=== PATIENT | female | born 1955 | race Caucasian/White ===

== ENCOUNTER 2019-03-03 08:35 | Outpatient (RCR) | payer MEDICARE, MEDICAID, SELFPAY ==
[2019-03-03 09:14] LABS: Basophils % 0.2 %; Hematocrit 36.8 % (37.0-47.0); Lymphocytes # 1.5 10^3/uL (0.8-4.8); Lymphocytes % 29.9 %; Mean Corpuscular HGB Conc 29.9 g/dL (30.0-36.0); Mean Corpuscular Hemoglobin 28.2 pg (28.0-34.0); Mean Corpuscular Volume 94.4 fL (81-99); Mean Platelet Volume 10.2 fL (7.4-10.4); Monocytes # 0.5 10^3/uL (0.2-0.9); Monocytes % 9.7 %; Nucleated Red Blood Cells % 0 %; Platelet Count 227 10^3/cmm (130-400); Red Cell Distribution Width 14.2 % (12.1-15.1)
[2019-03-03 09:36] LABS: Alanine Aminotransferase 6 U/L (0-33); Albumin Level 3.5 g/dL (3.5-5.2); Alkaline Phosphatase 168 IU/L (35-105); Anion Gap 15.1 (5-19); Aspartate Amino Transferase 11 U/L (0-32); Blood Urea Nitrogen 26 mg/dL (8-23); Calcium 9.1 mg/Dl (8.8-10.2); Carbon Dioxide 26 mmol/L (22-29); Chloride 104 mmol/L (98-107); Globulin 3.2 g/dL (1.3-4.6); Glomerular Filtration Rate 41.1 mL/min (90-130); Glucose 82 mg/dL (74-106); Potassium 3.1 mmol/L (3.5-5.1); Sodium 142 mmol/L (136-145); Total Bilirubin 0.2 mg/dL (0.15-1.2); Total Protein 6.7 g/dL (6.6-8.7)
== END 2019-03-14 23:59 | disposition home or self-care (01) ==
LOC: LAB 08:35
PROVIDERS: Visit Provider Nurse Practitioner Family
DX: I50.33 Acute on chronic diastolic (congestive) heart failure (principal); D64.9 Anemia, unspecified
CPT/HCPCS: 80053; 85025

== ENCOUNTER 2019-04-23 11:14 | Inpatient (IN) | payer MEDICARE, MEDICAID, SELFPAY ==
[2019-04-23] VITALS (9 sets, daily range): BP systolic 89–103; BP diastolic 61–70; PULSE 86–117; RESP 16–32; TEMP 36.6–38.3; O2SAT 92–98; BMI 32.4
--- NOTE | 2019-04-23 11:21 | ED_ITS ---
Entered by Tamela Pérez, acting as scribe for Stas Yanez DO HPI - SOB/Dyspnea General: Chief Complaint: Shortness of Breath/Dyspnea Stated Complaint: RESPIRATORY DISTRESS / ASPIRATED H20 YESTERDAY Time Seen by Provider: 04/23/19 11:21 Source: EMS Mode of arrival: EMS Limitations: altered mental status History of Present Illness: HPI Narrative: 63 yo female presents with shortness of breath and altered mental status. per usp staff at [facility] the pt was having a hard time breathing last night, but they put her on oxygen and she improved then this morning. per nursing staff the pt was drinking water and then she was unresponsive they believe she aspirated. nursing staff denies any other symptoms at this time. MD elicited complaint: shortness of breath Onset (ago): day(s) (last night) Context: choking/aspiration (possible this morning on water) Timing: progressively worsening Severity: moderate Relieving factors: oxygen Treatment prior to arrival: oxygen Related Data: Home oxygen amount: none Review of Systems General: Reports: ROS unobtainable due to medical condition and ROS unobtainable due to mental status PFSH ED PFSH: Medical History (Updated 04/24/19 @ 15:39 by Stas Yanez DO) Anxiety B12 deficiency anemia Bipolar 1 disorder Colon cancer Dermatitis, seborrheic Dysphagia, oropharyngeal Extrapyramidal and movement disorder GERD (gastroesophageal reflux disease) Hypertension Intellectual disability Major depression Surgical History (Updated 04/23/19 @ 17:28 by Guillermo Reza MD) History of partial colectomy Hx of cataract surgery Social History Smoking and tobacco status: never smoked Physical Exam HENMT: COMMON NORMALS: normocephalic, head/scalp atraumatic, hearing grossly normal bilaterally, TM's normal bilaterally, nasal mucous membranes and turbinates normal, moist oral mucous membranes and oropharynx normal HEAD & SCALP: normocephalic and atraumatic NOSE: nasal mucous membranes and turbinates normal TYMPANIC MEMBRANE: TM's normal bilaterally Eye: COMMON NORMALS: PERRL, EOMs intact bilaterally, conjunctivae normal and no scleral icterus CONJUNCTIVA: Yes conjunctivae normal PUPIL: Yes PERRL Neck/C-Spine: COMMON NORMALS: full ROM, no lymphadenopathy, supple and no JVD Lymph: LYMPHATIC: no lymphadenopathy noted and no lymphedema noted Cardio: COMMON NORMALS: no JVD, regular rate, regular rhythm and no murmurs RATE: regular rate RHYTHM: regular rhythm GI: COMMON NORMALS: soft to palpation and no hepatosplenomegaly AUSCULTATION: Yes normoactive bowel sounds PALPATION: Yes soft, No tender, No guarding and Yes no hepatosplenomegaly Skin: COMMON NORMALS: no rashes or lesions noted GENERAL SKIN EXAM: no rashes or lesions noted Course ED course: Discussed Dr. Reza. Patient is essentially obtunded and unresponsive usually when I had seen her in the past in the usp she was much more awake awake and interactive. Suspect a lot of this is due to her influenza there may be some other underlying medical issues. We will go ahead and admit her for supportive care for influenza acute respiratory failure with hypoxemia acute kidney injury possible sepsis. Cover for secondary pneumonias and sepsis. Vital Signs: Vital signs: Vital Signs Temperature 97.8 F 04/24/19 11:51 Pulse Rate 103 H 04/24/19 14:37 Respiratory Rate 20 H 04/24/19 14:33 Blood Pressure 95/67 04/24/19 11:51 Pulse Oximetry 93 04/24/19 14:33 MDM - SOB/Dyspnea Lab Data: Labs: Lab Results 04/23/19 04/23/19 04/23/19 Range/Units 10:52 11:25 11:40 WBC 6.7 (4.0-10.0) 10^3/ uL RBC 4.56 (4.1-5.3) 10^6/u L Hgb 12.7 (11.5-15.3) g/dL Hct 44.8 (37.0-47.0) % MCV 98.2 (81-99) fL MCH 27.9 L (28.0-34.0) pg MCHC 28.3 L (30.0-36.0) g/dL RDW 15.1 (12.1-15.1) % Plt Count 143 (130-400) 10^3/c mm MPV 11.5 H (7.4-10.4) fL Neut % (Auto) 81.0 % Lymph % (Auto) 12.7 % [place] % (Auto) 5.8 % Eos % (Auto) 0.0 % Baso % (Auto) 0.1 % Neut # (Auto) 5.4 (1.8-7.7) 10^3/u L Lymph # (Auto) 0.9 (0.8-4.8) 10^3/u L [place] # (Auto) 0.4 (0.2-0.9) 10^3/u L Eos # (Auto) 0.0 (0.0-0.8) 10^3/u L Baso # (Auto) 0.0 (0.0-0.1) 10^3/u L Nucleated RBC % (a uto) 0 % Nucleated RBCs # 0.0 /100WBC Specimen Type Arterial Sample Site Radial, left ABG pH 7.32 L (7.35-7.45) ABG pCO2 31.4 L (35-45) mmHg ABG pO2 68.4 L (80.0-100.0) mmH g ABG HCO3 16.1 L (22-26) mmol/L ABG Base Excess -8.8 L (-2.0-2.0) mmol/ L Hayden Test Pos Hematocrit 43.5 (37-47) % Hgb O2 Saturation 92.0 L (95-100) % Carboxyhemoglobin 0.4 (0.4-20.1) %THgb Methemoglobin 0.4 (0.4-1.5) % Total Hemoglobin 14.2 (12-16) g/dL O2 Delivery Device Nc O2 Liters/Min 4.0 % FiO2 36.0 % Permastone Installer ID [id number] Sodium 143 (136-145) mmol/L Potassium 4.7 (3.5-5.1) mmol/L Chloride 100 (98-107) mmol/L Carbon Dioxide 19 L (22-29) mmol/L Anion Gap 28.7 H (5-19) BUN 42 H (8-23) mg/dL Creatinine 2.3 H (0.5-0.9) mg/dL GFR Calculation 21.3 L (90-130) mL/min Glucose 207 H (65-115) mg/dL Calculated Osmolal ity 300 H (285-295) mOsm/k g Lactic Acid (0.5-2.2) mmol/L Calcium 9.4 (8.5-10.5) mg/dL Total Bilirubin 0.3 (0.15-1.2) mg/dL AST 43 H (0-32) U/L ALT 18 (0-33) U/L Alkaline Phosphata se 114 H (35-105) IU/L Troponin T Baselin e (0-10) ng/mL Troponin T 120 Min eulogio (0-10) ng/mL Delta Troponin T (0-10) ABS# Total Protein 8.6 (6.6-8.7) g/dL Albumin 3.9 (3.5-5.2) g/dL Globulin 4.7 H (1.3-4.6) g/dL Influenza Type A A g (Negative) POC Influenza B Ag (Negative) 04/23/19 04/23/19 04/23/19 Range/Units 11:40 11:45 11:45 WBC (4.0-10.0) 10^3/ uL RBC (4.1-5.3) 10^6/u L Hgb (11.5-15.3) g/dL Hct (37.0-47.0) % MCV (81-99) fL MCH (28.0-34.0) pg MCHC (30.0-36.0) g/dL RDW (12.1-15.1) % Plt Count (130-400) 10^3/c mm MPV (7.4-10.4) fL Neut % (Auto) % Lymph % (Auto) % [place] % (Auto) % Eos % (Auto) % Baso % (Auto) % Neut # (Auto) (1.8-7.7) 10^3/u L Lymph # (Auto) (0.8-4.8) 10^3/u L [place] # (Auto) (0.2-0.9) 10^3/u L Eos # (Auto) (0.0-0.8) 10^3/u L Baso # (Auto) (0.0-0.1) 10^3/u L Nucleated RBC % (a uto) % Nucleated RBCs # /100WBC Specimen Type Sample Site ABG pH (7.35-7.45) ABG pCO2 (35-45) mmHg ABG pO2 (80.0-100.0) mmH g ABG HCO3 (22-26) mmol/L ABG Base Excess (-2.0-2.0) mmol/ L Hayden Test Hematocrit (37-47) % Hgb O2 Saturation (95-100) % Carboxyhemoglobin (0.4-20.1) %THgb Methemoglobin (0.4-1.5) % Total Hemoglobin (12-16) g/dL O2 Delivery Device O2 Liters/Min % FiO2 % Permastone Installer ID Sodium (136-145) mmol/L Potassium (3.5-5.1) mmol/L Chloride (98-107) mmol/L Carbon Dioxide (22-29) mmol/L Anion Gap (5-19) BUN (8-23) mg/dL Creatinine (0.5-0.9) mg/dL GFR Calculation (90-130) mL/min Glucose (65-115) mg/dL Calculated Osmolal ity (285-295) mOsm/k g Lactic Acid 6.0 H* (0.5-2.2) mmol/L Calcium (8.5-10.5) mg/dL Total Bilirubin (0.15-1.2) mg/dL AST (0-32) U/L ALT (0-33) U/L Alkaline Phosphata se (35-105) IU/L Troponin T Baselin e 71 H (0-10) ng/mL Troponin T 120 Min eulogio (0-10) ng/mL Delta Troponin T (0-10) ABS# Total Protein (6.6-8.7) g/dL Albumin (3.5-5.2) g/dL Globulin (1.3-4.6) g/dL Influenza Type A A g Negative (Negative) POC Influenza B Ag Positive H (Negative) 04/23/19 Range/Units 13:00 WBC (4.0-10.0) 10^3/ uL RBC (4.1-5.3) 10^6/u L Hgb (11.5-15.3) g/dL Hct (37.0-47.0) % MCV (81-99) fL MCH (28.0-34.0) pg MCHC (30.0-36.0) g/dL RDW (12.1-15.1) % Plt Count (130-400) 10^3/c mm MPV (7.4-10.4) fL Neut % (Auto) % Lymph % (Auto) % [place] % (Auto) % Eos % (Auto) % Baso % (Auto) % Neut # (Auto) (1.8-7.7) 10^3/u L Lymph # (Auto) (0.8-4.8) 10^3/u L [place] # (Auto) (0.2-0.9) 10^3/u L Eos # (Auto) (0.0-0.8) 10^3/u L Baso # (Auto) (0.0-0.1) 10^3/u L Nucleated RBC % (a uto) % Nucleated RBCs # /100WBC Specimen Type Sample Site ABG pH (7.35-7.45) ABG pCO2 (35-45) mmHg ABG pO2 (80.0-100.0) mmH g ABG HCO3 (22-26) mmol/L ABG Base Excess (-2.0-2.0) mmol/ L Hayden Test Hematocrit (37-47) % Hgb O2 Saturation (95-100) % Carboxyhemoglobin (0.4-20.1) %THgb Methemoglobin (0.4-1.5) % Total Hemoglobin (12-16) g/dL O2 Delivery Device O2 Liters/Min % FiO2 % Permastone Installer ID Sodium (136-145) mmol/L Potassium (3.5-5.1) mmol/L Chloride (98-107) mmol/L Carbon Dioxide (22-29) mmol/L Anion Gap (5-19) BUN (8-23) mg/dL Creatinine (0.5-0.9) mg/dL GFR Calculation (90-130) mL/min Glucose (65-115) mg/dL Calculated Osmolal ity (285-295) mOsm/k g Lactic Acid (0.5-2.2) mmol/L Calcium (8.5-10.5) mg/dL Total Bilirubin (0.15-1.2) mg/dL AST (0-32) U/L ALT (0-33) U/L Alkaline Phosphata se (35-105) IU/L Troponin T Baselin e (0-10) ng/mL Troponin T 120 Min eulogio 56.23 H (0-10) ng/mL Delta Troponin T -14.77 L (0-10) ABS# Total Protein (6.6-8.7) g/dL Albumin (3.5-5.2) g/dL Globulin (1.3-4.6) g/dL Influenza Type A A g (Negative) POC Influenza B Ag (Negative) Discharge Plan Discharge Patient Disposition: Admitted As Inpatient Admit Provider: Guillermo Reza Clinical Impression: Influenza with respiratory manifestation, Acute respiratory failure with hypoxia, Acute kidney injury, Diarrhea, Sepsis with acute organ dysfunction and septic shock Condition: Stable Interventions: ED Discharge Assessment Last Done: 04/23/19 16:27 Discharge Date/Time: 04/23/19 16:28 Coding Level of Care Code ED Shaper Setter for Chg Fwd Exam Detailed The documentation recorded by the Beto miranda Bridget Annette, accurately reflects the service I personally performed and the decisions made by Beau truong Curtis L, Apr 23, 2019 11:14
--- NOTE | 2019-04-23 11:25 | XRR_ITS ---
PROCEDURE INFORMATION: Exam: XR Chest, 1 View Exam date and time: 04/23/2019 11:59 AM Age: 63 years old Clinical indication: Respiratory distress; aspirated water yesterday TECHNIQUE: Imaging protocol: XR of the chest Views: 1 view. COMPARISON: No relevant prior studies available. FINDINGS: Lungs: Poor inspiration. Decreased lung volumes. Linear left basilar airspace disease compatible with atelectasis. Slight crowding of the right infrahilar bronchovascular structures likely due to atelectasis as well. Pleural space: No pleural effusion or pneumothorax. Heart/Mediastinum: The cardiac silhouette is not enlarged. Diaphragm: The left hemidiaphragm is slightly elevated. Bones/joints: No acute osseous abnormality. Soft tissues: There is right rotator cuff calcific tendinitis. Other findings: There is some gaseous distention of the stomach. XR/XR chest 1V portable [id number] IMPRESSION: Bibasilar atelectasis.
--- NOTE | 2019-04-23 11:25 | ECG_ITS ---
Measurements Intervals [place] Rate: 86 P: 59 AL: 178 QRS: 10 QRSD: 87 T: 55 QT: 388 QTc: 465 SINUS RHYTHM No previous ECG available for comparison Electronically Signed On 04-23-2019 19:34:14 CDT by Lee Gutierrez M.D. [email or web address]
--- NOTE | 2019-04-23 11:36 | CT_ITS ---
WS: [id number] CT ABDOMEN PELVIS TECHNIQUE: Noncontrast CT of the abdomen and pelvis with coronal and sagittal reformatted images. CLINICAL INFORMATION: abd pain COMPARISON: None. DLP: 1357.[address] scans at [facility] use at least one of these dose optimization techniques: automat ed exposure control; mA and/or kV adjustment per patient size (includes targeted exams where dose is matched to clinical indication); or iterative reconstruction. FINDINGS: Images degraded by patient motion Prior postoperative changes partial right colectomy with ileocolic anastomosis. Normal noncontrast li luis fernando. Cholecystectomy clips. Right adrenal gland is normal.Small bilateral renal cysts largest in the left measuring 1.9 cm unchanged. Trace left pleural fluid. No hydronephrosis. Stable left adrenal mass measuring 3.2 x 3.2 CM. Subsegmental atelectasis in the l estephanie bases. Small esophageal hiatal hernia. Air-fluid level in the stomach with stomach distention. Air-fluid levels in the proximal small bowel. Scattered air and fluid in normal caliber small bowel. No evidence of high-grade obstruction. Modera te fecal retention in the rectum. Mild diffuse thickening of the distal sigmoid colon and rectum can be seen with distal colitis/proctitis. Tiny amount of inflammatory stranding in the perirectal soft t issues. Infraumbilical midline hernia containing multiple loops of small bowel similar in appearance to 2019. Wide mouth opening measuring 4.5 cm. No evidence of strangulation or high-grade obstruction. No periaortic or retroperitoneal ymphadenopathy. No inguinal lymphadenopathy. Stable grade 1-2 vandana listhesis L5 on S1 with spondylolysis. Chronic compression deformities at T11, T12, and L3 are stable .Compression superior endplate L1 is new from previous. Uterine fibroid. Attempted notification Stas Yanez DO at 04/23/2019 1:[address]/CT abdomen pelvis wo con [id number] IMPRESSION: 1. Stable left adrenal adenoma measuring 3.1 x 3.1 CM. 2. Prior cholecystectomy. 3. Infraumbilical midline hernia containing multiple loops of small bowel is s table in appearance with a wide mouth opening. No evidence of high-grade obstru ction or strangulation 4. Distal sigmoid and rectal constipation with rectal distention. Mild diffuse wall thickening of the distal sigmoid colon and rectum suspicious for mild dis kolby colitis or proctitis. 5. Compression of the L1 superior endplate measuring approximately 20% is new from May 08, 2018 but appears chronic
[2019-04-23 11:39] LABS: ABG PCO2 31.4 mmHg (35-45); ABG PH Result 7.32 (7.35-7.45); Arterial Blood Gas Hematocrit 43.5 % (37-47); Base Excess ABG -8.8 mmol/L (-2.0-2.0); Blood Gas Allen Test Pos; Blood Gas Sample Site Radial, left; Blood Gas Sample Type Arterial; Carboxyhemoglobin 0.4 %THgb (0.4-20.1); HCO3 ABG 16.1 mmol/L (22-26); Methemoglobin 0.4 % (0.4-1.5); Oxygen Device NC; PO2 ABG 68.4 mmHg (80.0-100.0); Total Hemoglobin 14.2 g/dL (12-16)
[2019-04-23] MEDS: levofloxacin-dextrose 5 % 750 MG/150 ML PREMIX 150 MG IV (11:39)
[2019-04-23 11:57] LABS: Basophils % 0.1 %; Hematocrit 44.8 % (37.0-47.0); Hemoglobin 12.7 g/dL (11.5-15.3); Lymphocytes # 0.9 10^3/uL (0.8-4.8); Lymphocytes % 12.7 %; Mean Corpuscular HGB Conc 28.3 g/dL (30.0-36.0); Mean Corpuscular Hemoglobin 27.9 pg (28.0-34.0); Mean Corpuscular Volume 98.2 fL (81-99); Mean Platelet Volume 11.5 fL (7.4-10.4); Monocytes # 0.4 10^3/uL (0.2-0.9); Monocytes % 5.8 %; Neutrophils # 5.4 10^3/uL (1.8-7.7); Nucleated Red Blood Cells % 0 %; Platelet Count 143 10^3/cmm (130-400); Red Blood Count 4.56 10^6/uL (4.1-5.3); Red Cell Distribution Width 15.1 % (12.1-15.1); White Blood Count 6.7 10^3/uL (4.0-10.0)
[2019-04-23 12:11] LABS: Alanine Aminotransferase 18 U/L (0-33); Albumin Level 3.9 g/dL (3.5-5.2); Alkaline Phosphatase 114 IU/L (35-105); Anion Gap 28.7 (5-19); Aspartate Amino Transferase 43 U/L (0-32); Blood Urea Nitrogen 42 mg/dL (8-23); Calcium 9.4 mg/dL (8.5-10.5); Carbon Dioxide 19 mmol/L (22-29); Chloride 100 mmol/L (98-107); Globulin 4.7 g/dL (1.3-4.6); Glomerular Filtration Rate 21.3 mL/min (90-130); Glucose 207 mg/dL (65-115); Osmolality Calculated 300 mOsm/kg (285-295); Potassium 4.7 mmol/L (3.5-5.1); Sodium 143 mmol/L (136-145); Total Bilirubin 0.3 mg/dL (0.15-1.2); Total Protein 8.6 g/dL (6.6-8.7)
[2019-04-23 12:26] LABS: Influenza A by IFA Negative (Negative); Influenza B by IFA Positive (Negative)
[2019-04-23 13:07] LABS: Troponin(5th) Baseline 71 ng/mL (0-10)
[2019-04-23] MEDS: piperacillin-tazobactam 3.375 GM in sodium chloride 0.9% (plus) 50 ML IV ×2 (13:13→22:00)
--- NOTE | 2019-04-23 13:25 | ECG_ITS ---
Measurements Intervals [place] Rate: 115 P: 37 VT: 181 QRS: -10 QRSD: 97 T: 69 QT: 333 QTc: 462 SINUS TACHYCARDIA NONSPECIFIC T-WAVE ABNORMALITY ABNORMAL RHYTHM ECG INTERPRETATION BASED ON A DEFAULT AGE OF 40 YEARS No previous ECG available for comparison Electronically Signed On 04-23-2019 19:36:03 CDT by Lee Gutierrez M.D. [id number]
[2019-04-23 13:27] LABS: Troponin 5 2HR 56.23 ng/mL (0-10)
[2019-04-23 14:33] LABS: Reflex Lactate Order REFLEX LACTIC ORDERD
[2019-04-23 15:28] LABS: Lactic Acid level (Lactate) 2.7 mmol/L (0.5-2.2)
--- NOTE | 2019-04-23 16:38 | PM.HP ---
Providers/Chief Complaint Admitting Physician: Guillermo Reza MD Primary Care Provider: Sai Hayden DO Chief Complaint: RESPIRATORY DISTRESS / ASPIRATED H20 YESTERDAY History of Present Illness Cecelia Gonzales is a 63 year old female, resident of nursing facility was brought to emerge department with worsening respiratory status and hypoxia. I have discussed case with [facility], patient's RN at [facility] [place]. Apparently patient started having some difficulty swallowing and lately she has been having her medications crushed. Yesterday morning after breakfast there was a concern that she could possibly aspirate. Later that day patient had episode of oxygen desaturation in the 80s and oxygen supplementation for short period of time was used. She was able to sleep throughout the night without oxygen. She was getting somewhat lethargic and this morning she again noted to have trouble breathing with oxygen desaturation and having pulmonary Rales on exam. There was no report of diarrhea although in ER patient had extensive amount of diarrhea requiring rectal tube placement. In emergency department patient was placed on BiPAP with FiO2 40% she was saturating in the high 90s during my evaluation. She tested positive for influenza. She was very lethargic and unable to communicate. She is clinically very dry and has evidence of acute kidney injury. She had fever 101 in ER and she met septic shock criteria. Her lactic acid was 6.0. She was treated with aggressive IV hydration and her heart rate gradually improved from 117 to 90s during my evaluation in ER. We have no ICU or CSU beds and patient is being admitted to [facility] floor given her CODE STATUS. Family history is unavailable. Review of Systems Narrative: Unable to obtain due to patient's mental status. Medications/Allergies Home Medications Medication Instructions Recorded Confirmed Last Taken Type acetaminophen [Tylenol] 650 mg PO Q8H PRN 04/23/19 04/23/19 Unknown History amantadine HCl 100 mg PO DAILY 04/23/19 04/23/19 04/23/19 History bisacodyl 10 mg CA DAILY PRN 04/23/19 04/23/19 Unknown History chlorpromazine 100 mg PO TID 04/23/19 04/23/19 04/23/19 History clonazepam [Klonopin] 0.5 mg PO TID 04/23/19 04/23/19 04/23/19 History dextromethorphan-quinidine 1 cap PO Q12H 04/23/19 04/23/19 04/23/19 History [Nuedexta] furosemide 40 mg PO DAILY 04/23/19 04/23/19 04/23/19 History levetiracetam 500 mg PO BID 04/23/19 04/23/19 04/23/19 History magnesium hydroxide [Milk of 400 mg PO DAILY PRN 04/23/19 04/23/19 Unknown History Magnesia] metoprolol succinate 25 mg PO BID 04/23/19 04/23/19 04/23/19 History oxcarbazepine 300 mg PO TID 04/23/19 04/23/19 04/23/19 History potassium chloride 20 meq PO BID 04/23/19 04/23/19 04/23/19 History selenium sulfide [Anti-Dandruff] See Rx Instructions .ROUTE .COMPLEX 04/23/19 04/23/19 Unknown History sodium phosphates [Enema] 118 ml CA DAILY PRN 04/23/19 04/23/19 Unknown History topiramate [Topamax] 50 mg PO TID 04/23/19 04/23/19 04/23/19 History Allergies Allergy/AdvReac Type Severity Reaction Status Date / Time nitrofurantoin Allergy ALGY-Rash Verified 04/23/19 11:32 [From Macrobid] oseltamivir [From Tamiflu] Allergy ALGY-Hives Verified 04/23/19 11:32 PFSH Acute PFSH: Medical History (Updated 04/23/19 @ 17:37 by Guillermo Reza MD) Anxiety B12 deficiency anemia Bipolar 1 disorder Colon cancer Dermatitis, seborrheic Dysphagia, oropharyngeal Extrapyramidal and movement disorder GERD (gastroesophageal reflux disease) Hypertension Intellectual disability Major depression Surgical History (Updated 04/23/19 @ 17:28 by Guillermo Reza MD) History of partial colectomy Hx of cataract surgery Social History Smoking and tobacco status: never smoked Vitals/I&O/Wt Last Vital Signs Temp 101.0 F H 04/23/19 11:16 Pulse 101 H 04/23/19 16:27 Resp 18 04/23/19 16:27 BP 98/63 04/23/19 16:27 Pulse Ox 97 04/23/19 16:27 04/23/19 04/23/19 04/23/19 06:59 14:59 22:59 Intake Total 3415.86 / 3415.86 Balance 3415.86 / 3415.86 Weight last 48 hrs Weight 88.451 kg Physical Exam Const: COMMON NORMALS: no apparent distress and oriented x3 HENMT: COMMON NORMALS: normocephalic and head/scalp atraumatic Eye: COMMON NORMALS: EOMs intact bilaterally, conjunctivae normal and no scleral icterus Neck/C-Spine: COMMON NORMALS: no lymphadenopathy and no meningeal signs Lymph: LYMPHATIC: no lymphadenopathy noted Chest: COMMONS NORMALS: palpation of chest normal Resp: COMMON NORMALS: no use of accessory muscles and clear to auscultation bilaterally Cardio: COMMON NORMALS: regular rate, regular rhythm and no murmurs OTHER: No lower extremity edema GI: COMMON NORMALS: soft to palpation and non-tender RECTAL EXAM: deferred : COMMON NORMALS: Yes no CVA tenderness Back/Pelvis: COMMON NORMALS: thoracic and lumbar spine normal to inspection Extremity: COMMON NORMALS: normal to inspection and normal capillary refill Neuro: COMMON NORMALS: oriented x3 and no focal motor deficits SENSORIUM/ORIENTATION: Yes alert Psych: COMMON NORMALS: mental status grossly normal, thought process normal and cooperative Skin: COMMON NORMALS: no rashes or lesions noted Data : 04/23/19 11:40 04/23/19 10:52 Micro: Microbiology 04/23/19 11:45 Blood Culture - Preliminary Blood SPECIMEN COLLECTED 04/23/19 11:40 Blood Culture - Preliminary Blood SPECIMEN COLLECTED A&P Assessment and plan (1) Influenza with respiratory manifestation: Status: Acute Code(s): J11.1 - Influenza due to unidentified influenza virus with other respiratory manifestations (2) Acute respiratory failure with hypoxia: Status: Acute Code(s): J96.01 - Acute respiratory failure with hypoxia (3) Acute kidney injury: Prerenal Status: Acute Code(s): N17.9 - Acute kidney failure, unspecified (4) Diarrhea: Status: Acute Code(s): R19.7 - Diarrhea, unspecified (5) Sepsis with acute organ dysfunction and septic shock: As exhibited by fever, tachycardia, tachypnea and elevated lactic acid Status: Acute Code(s): A41.9 - Sepsis, unspecified organism; R65.21 - Severe sepsis with septic shock Additional A&P Information Elevated troponin. Suggestive of non-ST elevation [place] type II Hyperglycemia without previous history of diabetes mellitus. Oropharyngeal dysphagia. Intellectual disability Bipolar and major depressive disorder. PLAN: Continue BiPAP and oxygen support. Continue with aggressive IV hydration Obtain stool studies. Vancomycin and Zosyn for now. Patient received Levaquin in ER. Patient is allergic to Tamiflu. I was told that patient's CODE STATUS is DNR/DNI and this was verified by [facility] [place]. Attestations Medical Necessity Statement*: Patient with acute hypoxic respite failure requires close inpatient monitoring and treatment. I expect patient will require more than 2 midnights. 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
--- NOTE | 2019-04-23 17:44 | ECG_ITS ---
Measurements Intervals [place] Rate: 105 P: 39 WA: 170 QRS: -4 QRSD: 90 T: 74 QT: 357 QTc: 472 SINUS TACHYCARDIA NONSPECIFIC T-WAVE ABNORMALITY ABNORMAL RHYTHM ECG No previous ECG available for comparison Electronically Signed On 04-23-2019 19:35:31 CDT by Lee Gutierrez M.D. [email or web address]
[2019-04-23] MEDS: vancomycin 1,000 MG in sodium chloride 0.9% 250 ML 250 MG IV (19:03)
[2019-04-23] MEDS: levETIRAcetam 500 mg Tablet PO (19:03)
[2019-04-23] MEDS: sodium chloride 0.9% 1,000 ML 100 ML IV (19:04)
[2019-04-23] MEDS: metoprolol succinate ER (24 HR) 25 mg Tablet PO (19:04)
[2019-04-23 20:06] LABS: Lactic Sepsis W/Reflex 1.7 mmol/L (0.5-2.2)
[2019-04-23 20:54] LABS: Urine Appearance Cloudy (CLEAR); Urine Color Yellow (Yellow); pH Urine 5 (5-7)
[2019-04-23 20:55] LABS: Add Urine Microscopic? YES; Bilirubin Urine Neg (NEGATIVE); Blood Urine 3+ (Negative); Glucose Urine UA Norm (Normal); Ketones Urine Negative (Negative); Leukocyte Esterase Urine Negative (Negative); Nitrate Urine Negative (Negative); Protein Urine Trace (Negative); Urobilinogen Urine Norm (Negative)
--- NOTE | 2019-04-23 21:00 | PC.NURSE ---
Patient has a rectal tube and a simmons catheter was placed. Patient is on Droplet precautions for the flu. Patient was noted to a red bottom and redness in the folds of her thighs. Protective ointment cream applied to both.
--- NOTE | 2019-04-23 21:00 | PC.NURSE ---
Patient has a rectal tube
[2019-04-23 21:03] LABS: Amorphous Sediment Urine 2+; Coarse Granular Casts Urine 0-4 /lpf; Fine Granular Casts Urine 0-4 /lpf; Hyaline Casts Urine 0-4
[2019-04-23 21:04] LABS: Add Urine Culture? Yes; Bacteria Urine 2+; Squamous Epithelial Cell Urine 0-4 (0-5); WBC Urine 0-4 /hpf (0-5)
[2019-04-23] MEDS: OXcarbazepine 300 mg Tablet PO (22:03)
[2019-04-23] MEDS: CLONazepam 0.5 mg Tablet PO (22:03)
[2019-04-24] VITALS (11 sets, daily range): BP systolic 95–114; BP diastolic 55–79; PULSE 96–114; RESP 18–114; TEMP 36.5–36.8; O2SAT 92–98
--- NOTE | 2019-04-24 01:57 | PC.NURSE ---
vitals elevated because patient was yelling and upset while taking vitals. Patient was yelling for the nurse, I explained to her that she needed to use her call light instead of yelling, and that we could not hear her through the shut door and yelling would only make her tired. Patient told me Keep the damn door open then. I explained to patient that she was under isolation precautions and the door needed to remain shut to prevent spreading the illness. Patient then demanded water, and I reminded her that she was NPO and could not receive water. Patient remains yelling woohoo nurse through shut door.
[2019-04-24] MEDS: acetaminophen 325 mg Tablet 650 MG PO (03:03)
[2019-04-24] MEDS: piperacillin-tazobactam 3.375 GM in sodium chloride 0.9% (plus) 50 ML IV ×2 (04:38→16:30)
[2019-04-24 06:27] LABS: Hematocrit 41.8 % (37.0-47.0); Hemoglobin 12.4 g/dL (11.5-15.3); Lymphocytes # 0.7 10^3/uL (0.8-4.8); Lymphocytes % 16.7 %; Mean Corpuscular HGB Conc 29.7 g/dL (30.0-36.0); Mean Corpuscular Hemoglobin 29.4 pg (28.0-34.0); Mean Corpuscular Volume 99.1 fL (81-99); Mean Platelet Volume 11.6 fL (7.4-10.4); Monocytes # 0.3 10^3/uL (0.2-0.9); Neutrophils % 75.8 %; Nucleated Red Blood Cells % 0 %; Platelet Count 116 10^3/cmm (130-400); Red Blood Count 4.22 10^6/uL (4.1-5.3)
[2019-04-24 06:45] LABS: Alanine Aminotransferase 175 U/L (0-33); Albumin Level 2.8 g/dL (3.5-5.2); Alkaline Phosphatase 81 IU/L (35-105); Anion Gap 19.8 (5-19); Aspartate Amino Transferase 349 U/L (0-32); Blood Urea Nitrogen 48 mg/dL (8-23); Carbon Dioxide 19 mmol/L (22-29); Chloride 108 mmol/L (98-107); Globulin 3.9 g/dL (1.3-4.6); Glomerular Filtration Rate 23.6 mL/min (90-130); Glucose 99 mg/dL (65-115); Osmolality Calculated 296 mOsm/kg (285-295); Phosphorus 4.6 mg/dL (2.5-4.5); Sodium 144 mmol/L (136-145); Total Bilirubin 0.3 mg/dL (0.15-1.2); Total Protein 6.7 g/dL (6.6-8.7)
[2019-04-24 07:06] LABS: Slide Review Slide Review Perform
[2019-04-24 07:09] LABS: Absolute Segmented Neutrophil 1.5 10/cmm (1.6-7.1); Band Neutrophils Absolute 1.5 10^3/cmm (0.0-1.2); Lymphocytes 18 %; Lymphocytes Absolute 0.8 10^3/cmm (1.2-3.4); Monocytes Absolute 0.2 10^3/cmm (0.1-0.6); Platelet Estimate Decreased (Normal); Segmented Neutrophils 38 %; Total Cells Counted 100 (0-100)
[2019-04-24 07:38] LABS: Estmated Average Glucose 114; Hemoglobin A1C 5.6 % (4.0-6.0)
[2019-04-24 07:44] LABS: Potassium 2.8 mmol/L (3.5-5.1)
[2019-04-24] MEDS: CLONazepam 0.5 mg Tablet PO ×3 (08:23→20:43)
[2019-04-24] MEDS: levETIRAcetam 500 mg Tablet PO ×2 (08:23→18:46)
[2019-04-24] MEDS: OXcarbazepine 300 mg Tablet PO ×3 (08:24→20:43)
[2019-04-24] MEDS: metoprolol succinate ER (24 HR) 25 mg Tablet PO ×2 (08:24→18:46)
[2019-04-24] MEDS: ipratropium-albuterol 3 mL Neb INHALATION ×3 (08:48→23:31)
[2019-04-24] MEDS: sodium chloride 0.9% 1,000 ML 100 ML IV (09:42)
--- NOTE | 2019-04-24 10:00 | USCV_ITS ---
Cecelia Gonzales Age: 63 Gender: F : 1955 Exam Date: 04/24/2019 15:35 Ordering Phys: Guillermo Reza MD Technologist: Nicolasa Babb [place] [facility] [place]: [place] BP: 114 / 76 HR: 99 Rhythm: Sinus tachycardia Technical Quality: Very technically difficult study MEASUREMENTS (Male / Female) Normal Values 2D ECHO LV Chamber Size 3.4 cm RV Chamber Size 1.9 cm LV Ejection Fraction MOD 2C 56.0 % LV Ejection Fraction 2C AL 60.8 % LA Width 2.6 cm LA Height 4.4 cm RA Width 1.8 cm RA Height 3.9 cm DOPPLER AV Peak Velocity 96.0 cm/s LVOT Peak Velocity 97.0 cm/s MV Area PHT 5.0 cm squared MV E' Velocity 10.0 cm/s Mitral E to MV E' Ratio 10.8 Mitral E to LV E' Lateral Ratio 9.0 Mitral E to LV E' Septal Ratio 13.8 TV Peak E Velocity 52.0 cm/s FINDINGS Left Ventricle Normal left ventricular cavity size. Low normal left ventricular systolic function. Left ventricular ejection fraction is estimated at 50-55 %. There is possible basal to mid inferoseptal and anteroseptal hypokinesis. Right Ventricle Normal right ventricular size and systolic function. Right Atrium Normal right atrial size. Left Atrium Mildly increased left atrial size. Mitral Valve Structurally normal mitral valve. Aortic Valve Aortic valve not well visualized. No aortic valve stenosis. No aortic valve regurgitation. Tricuspid Valve Tricuspid valve not well visualized. Pulmonic Valve Pulmonic valve not well visualized. Pericardium No pericardial effusion. Aorta Aorta not well visualized. CONCLUSIONS 1. This is a technically very difficult study. 2. Normal left ventricular cavity size. Low normal left ventricular systolic function. Left ventricular ejection fraction is estimated at 50-55 %. There is possible basal to mid inferoseptal and anteroseptal hypokinesis. 3. No prior similar studies to compare. Jenn Esquivel MD (Electronically Signed) Final Date: 24 April 2019 19:08 S
--- NOTE | 2019-04-24 16:32 | PM.PN ---
Subjective Subjective: Interval history: Patient reports feeling better this morning. She denied chest pain or shortness of breath. She was off BiPAP since this morning and doing well. Her potassium was low this morning and replacement was given. Creatinine slightly improved to 2.1. Her AST and ALT increased in hepatic pattern potentially suggestive of passive congestion. Her troponin suggestive of recent CT shortly prior to admission. Echocardiogram is pending. Vitals/I&O/Wt Last Vital Signs Temp 98.2 F 04/24/19 15:48 Pulse 108 H 04/24/19 15:48 Resp 18 04/24/19 15:48 BP 99/55 04/24/19 15:48 Pulse Ox 94 04/24/19 15:48 04/24/19 04/24/19 04/24/19 06:59 14:59 22:59 Intake Total 50 / 3715.86 1050 / 1050 Output Total 800 / 1000 Balance -750 / 2715.86 1050 / 1050 Weight last 48 hrs Weight 88.451 kg Physical Exam Const: COMMON NORMALS: no apparent distress Resp: OTHER: Coarse breath sounds throughout suggestive of upper airway transmitted sounds. Minimal bibasilar Rales. Cardio: COMMON NORMALS: regular rate, regular rhythm and S2 normal heart sound RATE: regular rate RHYTHM: regular rhythm HEART SOUNDS: S2 normal OTHER: No lower extremity edema GI: COMMON NORMALS: normal to inspection, nondistended, normoactive bowel sounds, soft to palpation and non-tender PALPATION: Yes soft Neuro: COMMON NORMALS: no focal motor deficits Urinary Catheter Management^: Lou: Cath Placed During This Visit: yes Reason for Continuing Indwelling Catheter: Accurate Measurement of Urinary Output in Critically Ill Patients Urinary Catheter Date of Insertion: 04/23/19 Urinary Catheter Time of Insertion: 20:30 Data : 04/24/19 05:12 04/24/19 05:12 Micro: Microbiology 04/23/19 11:40 Blood Culture - Preliminary Blood NEGATIVE TO DATE 04/23/19 11:45 Blood Culture - Preliminary Blood NEGATIVE TO DATE 04/23/19 22:30 Enteric Pathogens (PCR) - Final Stool 04/23/19 22:30 C.difficile Toxin B Gene (PCR) - Final Stool 04/23/19 22:30 Occult Blood (FIT) - Final Stool A&P Assessment and plan (1) Influenza with respiratory manifestation: Status: Acute Code(s): J11.1 - Influenza due to unidentified influenza virus with other respiratory manifestations (2) Acute respiratory failure with hypoxia: Status: Acute Code(s): J96.01 - Acute respiratory failure with hypoxia (3) Acute kidney injury: Prerenal Status: Acute Code(s): N17.9 - Acute kidney failure, unspecified (4) Diarrhea: Status: Acute Code(s): R19.7 - Diarrhea, unspecified (5) Sepsis with acute organ dysfunction and septic shock: As exhibited by fever, tachycardia, tachypnea and elevated lactic acid Status: Acute Code(s): A41.9 - Sepsis, unspecified organism; R65.21 - Severe sepsis with septic shock Additional A&P Information Non-ST elevation CT type II Hyperglycemia without previous history of diabetes mellitus. Oropharyngeal dysphagia. Intellectual disability Bipolar and major depressive disorder. PLAN: Continue BiPAP and oxygen support as needed. Hold IV hydration and initiate diet. Obtain stool studies. Continue current antibiotics. Attestations Medical Necessity Statement*: Patient with respiratory failure requires close inpatient monitoring and treatment. Coding Level of Care Code Acute Director Corporate Sales for [facility] Diagnoses Influenza with respiratory manifestation J11.1 Acute respiratory failure with hypoxia J96.01 Acute kidney injury N17.9 Diarrhea R19.7 Sepsis with acute organ dysfunction and septic shock A41.9; R65.21
[2019-04-24] MEDS: enoxaparin 30 mg/0.3 mL Syringe SUBCUT (18:46)
[2019-04-24] MEDS: vancomycin 1,000 MG in sodium chloride 0.9% 250 ML 250 MG IV (23:16)
[2019-04-25] VITALS (12 sets, daily range): BP systolic 92–115; BP diastolic 60–78; PULSE 81–117; RESP 17–22; TEMP 35.9–37.7; O2SAT 91–96
[2019-04-25] MEDS: piperacillin-tazobactam 3.375 GM in sodium chloride 0.9% (plus) 100 ML IV ×2 (01:54→11:15)
[2019-04-25 06:38] LABS: Alanine Aminotransferase 309 U/L (0-33); Albumin Level 2.8 g/dL (3.5-5.2); Alkaline Phosphatase 65 IU/L (35-105); Anion Gap 17.3 (5-19); Aspartate Amino Transferase 426 U/L (0-32); Blood Urea Nitrogen 36 mg/dL (8-23); Calcium 7.9 mg/dL (8.5-10.5); Carbon Dioxide 17 mmol/L (22-29); Chloride 116 mmol/L (98-107); Globulin 3.3 g/dL (1.3-4.6); Glomerular Filtration Rate 26.5 mL/min (90-130); Glucose 80 mg/dL (65-115); Magnesium 1.9 mg/dL (1.7-2.3); Osmolality Calculated 300 mOsm/kg (285-295); Phosphorus 3.3 mg/dL (2.5-4.5); Potassium 3.3 mmol/L (3.5-5.1); Sodium 147 mmol/L (136-145); Total Bilirubin 0.4 mg/dL (0.15-1.2); Total Protein 6.1 g/dL (6.6-8.7)
[2019-04-25 06:43] LABS: Hematocrit 35.6 % (37.0-47.0); Hemoglobin 10.6 g/dL (11.5-15.3); Lymphocytes # 0.5 10^3/uL (0.8-4.8); Lymphocytes % 16.7 %; Mean Corpuscular HGB Conc 29.8 g/dL (30.0-36.0); Mean Corpuscular Hemoglobin 28.3 pg (28.0-34.0); Mean Corpuscular Volume 95.2 fL (81-99); Mean Platelet Volume 11.8 fL (7.4-10.4); Monocytes # 0.2 10^3/uL (0.2-0.9); Monocytes % 8.3 %; Neutrophils # 2.2 10^3/uL (1.8-7.7); Neutrophils % 74.7 %; Nucleated Red Blood Cells % 0 %; Platelet Count 101 10^3/cmm (130-400); Red Blood Count 3.74 10^6/uL (4.1-5.3); Red Cell Distribution Width 15.2 % (12.1-15.1); White Blood Count 2.9 10^3/uL (4.0-10.0)
[2019-04-25] MEDS: CLONazepam 0.5 mg Tablet PO ×3 (11:24→20:38)
[2019-04-25] MEDS: levETIRAcetam 500 mg Tablet PO ×2 (11:25→19:54)
[2019-04-25] MEDS: OXcarbazepine 300 mg Tablet PO ×2 (11:25→14:53)
[2019-04-25] MEDS: metoprolol succinate ER (24 HR) 25 mg Tablet PO (11:25)
--- NOTE | 2019-04-25 13:10 | PC.SLP ---
Speech therapy orders were received and chart was reviewed. Attempted to evaluate the patient and she refused and asked me to leave her room and not bother her. Attempts will be made tomorrow to see if the patient would participate in her ordered evaluation.
[2019-04-25] MEDS: ipratropium-albuterol 3 mL Neb INHALATION (14:00)
--- NOTE | 2019-04-25 15:16 | P.PN_ITS ---
Subjective Subjective: Interval history: Patient appears to be doing better. She denies shortness of breath or chest pain. She ate her breakfast this morning and drinking plenty of water. She developed pancytopenia and this is likely related to underlying infection. Echocardiogram shows 50 to 55% with possible basal and mid inferior septal and anteroseptal hypokinesis. Her diarrhea is significantly improved. Vitals/I&O/Wt Last Vital Signs Temp 98.6 F 04/25/19 11:46 Pulse 107 H 04/25/19 14:14 Resp 22 H 04/25/19 14:14 BP 92/61 04/25/19 11:46 Pulse Ox 92 04/25/19 14:14 04/25/19 04/25/19 04/25/19 06:59 14:59 22:59 Intake Total 580 / 1910 180 / 180 Output Total 750 / 1350 Balance -170 / 560 180 / 180 Physical Exam Const: COMMON NORMALS: no apparent distress Resp: COMMON NORMALS: normal respiratory effort and clear to auscultation bilaterally AUSCULTATION: clear to auscultation bilaterally Cardio: COMMON NORMALS: regular rate, regular rhythm and S2 normal heart sound RATE: regular rate RHYTHM: regular rhythm HEART SOUNDS: S2 normal OTHER: No lower extremity edema GI: COMMON NORMALS: normal to inspection, nondistended, normoactive bowel sounds, soft to palpation and non-tender PALPATION: Yes soft Urinary Catheter Management^: Lou: Cath Placed During This Visit: yes Reason for Continuing Indwelling Catheter: Assist healing open wound Urinary Catheter Date of Insertion: 04/23/19 Urinary Catheter Time of Insertion: 20:30 Data : 04/25/19 05:00 04/25/19 05:00 Micro: Microbiology 04/23/19 20:45 Urine Culture - Preliminary Urine,Clean Catch Gram Negative Rods 04/23/19 11:40 Blood Culture - Preliminary Blood NEGATIVE TO DATE 04/23/19 11:45 Blood Culture - Preliminary Blood NEGATIVE TO DATE 04/23/19 22:30 Enteric Pathogens (PCR) - Final Stool 04/23/19 22:30 C.difficile Toxin B Gene (PCR) - Final Stool A&P Assessment and plan (1) Influenza with respiratory manifestation: Status: Acute Code(s): J11.1 - Influenza due to unidentified influenza virus with other respiratory manifestations (2) Acute respiratory failure with hypoxia: Status: Acute Code(s): J96.01 - Acute respiratory failure with hypoxia (3) Acute kidney injury: Prerenal Status: Acute Code(s): N17.9 - Acute kidney failure, unspecified (4) Diarrhea: Status: Acute Code(s): R19.7 - Diarrhea, unspecified (5) Sepsis with acute organ dysfunction and septic shock: As exhibited by fever, tachycardia, tachypnea and elevated lactic acid Status: Acute Code(s): A41.9 - Sepsis, unspecified organism; R65.21 - Severe sepsis with septic shock Additional A&P Information Non-ST elevation [place] type II Hyperglycemia without previous history of diabetes mellitus. Oropharyngeal dysphagia. Intellectual disability Bipolar and major depressive disorder. Pancytopenia, likely related to underlying infection Elevated liver enzymes. This also appears to be related to infection. PLAN: Continue BiPAP and oxygen support as needed. We will remove rectal tube. Encouraged oral intake. Given patient's underlying medical condition will treat patient medically and avoid any aggressive intervention. Monitor pancytopenia. Hopefully it will gradually improve with infection getting under control. Unfortunately we cannot use Tamiflu because of allergy. Restart chlorpromazine. Will increase metoprolol to 50 mg twice daily for better heart rate control. Outpatient follow-up with cardiology could be considered. Attestations Medical Necessity Statement*: Patient with respiratory failure requires close inpatient monitoring and treatment. Coding Level of Care Code Acute Automatic Nailing Machine Operator for [facility] Diagnoses Influenza with respiratory manifestation J11.1 Acute respiratory failure with hypoxia J96.01 Acute kidney injury N17.9 Diarrhea R19.7 Sepsis with acute organ dysfunction and septic shock A41.9; R65.21
[2019-04-25 18:40] LABS: Vancomycin Trough 21.6 ug/mL (10-15)
[2019-04-25] MEDS: enoxaparin 30 mg/0.3 mL Syringe SUBCUT (19:54)
[2019-04-25] MEDS: metoprolol succinate ER (24 HR) 50 mg Tablet PO (19:54)
--- NOTE | 2019-04-25 21:02 | PC.NURSE ---
medication this nurse to give pt medication. pt sat up in bed, A&O x3, pt took the first pill in pudding and swallowed down after a few minutes and small sips of water, pt became choked up upon swallowing second pill and began coughing heavily. pt encouraged to keep coughing until everything was brought up. pt lungs without change from shift assessment, pulse oximeter placed on pt with O2 sats at 94% on 2L NC. pt's oral cavity suctioned of mucous. pt resting in bed with bed rails up x2 and bed alarm on.
[2019-04-25] MEDS: vancomycin 1,000 MG in sodium chloride 0.9% 250 ML 250 MG IV (23:26)
[2019-04-26] VITALS (16 sets, daily range): BP systolic 93–109; BP diastolic 56–76; PULSE 81–117; RESP 15–24; TEMP 36.5–37.1; O2SAT 93–99
[2019-04-26] MEDS: piperacillin-tazobactam 3.375 GM in sodium chloride 0.9% (plus) 100 ML IV ×3 (00:55→16:51)
--- NOTE | 2019-04-26 02:37 | PC.NURSE ---
Rectal tube per Dr. Reza's report, rectal tube d/c. 65mL NS removed from rectal tube balloon, balloon completely deflated and fully intact upon removal. pt tolerated well. russell care performed on pt and pt repositioned.
[2019-04-26] MEDS: ipratropium-albuterol 3 mL Neb INHALATION ×4 (02:44→20:28)
[2019-04-26 05:46] LABS: Hemoglobin 10.6 g/dL (11.5-15.3); Lymphocytes # 0.6 10^3/uL (0.8-4.8); Lymphocytes % 19.4 %; Mean Corpuscular HGB Conc 29.4 g/dL (30.0-36.0); Mean Corpuscular Hemoglobin 28.9 pg (28.0-34.0); Mean Corpuscular Volume 98.1 fL (81-99); Mean Platelet Volume 11.6 fL (7.4-10.4); Monocytes # 0.4 10^3/uL (0.2-0.9); Monocytes % 12.9 %; Neutrophils # 2.1 10^3/uL (1.8-7.7); Neutrophils % 67.1 %; Nucleated Red Blood Cells % 0 %; Platelet Count 104 10^3/cmm (130-400); Red Blood Count 3.67 10^6/uL (4.1-5.3); Red Cell Distribution Width 15.5 % (12.1-15.1); White Blood Count 3.1 10^3/uL (4.0-10.0)
[2019-04-26 06:05] LABS: Alanine Aminotransferase 380 U/L (0-33); Albumin Level 2.8 g/dL (3.5-5.2); Alkaline Phosphatase 77 IU/L (35-105); Anion Gap 15.3 (5-19); Aspartate Amino Transferase 397 U/L (0-32); Blood Urea Nitrogen 32 mg/dL (8-23); Calcium 8.5 mg/dL (8.5-10.5); Carbon Dioxide 22 mmol/L (22-29); Chloride 118 mmol/L (98-107); Globulin 3.3 g/dL (1.3-4.6); Glomerular Filtration Rate 23.6 mL/min (90-130); Glucose 94 mg/dL (65-115); Magnesium 2.1 mg/dL (1.7-2.3); Osmolality Calculated 311 mOsm/kg (285-295); Phosphorus 3.5 mg/dL (2.5-4.5); Potassium 3.3 mmol/L (3.5-5.1); Sodium 152 mmol/L (136-145); Total Bilirubin 0.4 mg/dL (0.15-1.2); Total Protein 6.1 g/dL (6.6-8.7)
[2019-04-26] MEDS: OXcarbazepine 300 mg Tablet PO ×3 (09:30→21:13)
[2019-04-26] MEDS: metoprolol succinate ER (24 HR) 50 mg Tablet PO (09:30)
[2019-04-26] MEDS: CLONazepam 0.5 mg Tablet PO ×3 (09:30→21:13)
[2019-04-26] MEDS: levETIRAcetam 500 mg Tablet PO ×2 (09:30→17:55)
[2019-04-26] MEDS: FUROsemide 40 mg Tablet PO (09:31)
--- NOTE | 2019-04-26 13:41 | DCPLANNER ---
Pt's IM is due today however commercial insurance underwriter would need to call the Public [employer] Department Supervisor with this information but given that she is not being d/c'd today; will postpone that call.
--- NOTE | 2019-04-26 14:08 | PC.SLP ---
Information provided by the speech therapist at [facility]: patient has an extensive psych history and is not cooperative with the staff, often calling them whores. She refuses to get out of bed for meals and often wants to eat lying down resulting in multiple episodes of pneumonia. [facility] has been looking for a different placement ([facility]) for the patient as they feel they are not able to fully provide what the patient needs for her psych issues.
--- NOTE | 2019-04-26 16:39 | P.PN_ITS ---
Subjective Subjective: Interval history: Patient denies shortness of breath or chest pain. Reports abdominal pain. She appears to be tender on palpation of her chronic ventral hernia. She has hyperactive bowel sounds overlying hernia on exam this afternoon. Her bowel sounds were normal and abdomen did not appear tender on morning exam. She continues to be lethargic but a little bit more al ert this afternoon. Reports that she is not hungry and does not want to eat. Had small amount of diarrhea earlier today. Vitals/I&O/Wt Last Vital Signs Temp 98.6 F 04/26/19 16:00 Pulse 900 H 04/26/19 16:00 Resp 16 04/26/19 16:00 BP 99/67 04/26/19 16:00 Pulse Ox 98 04/26/19 16:00 04/26/19 04/26/19 04/26/19 06:59 14:59 22:59 Intake Total 410 / 750 100 / 100 Output Total 525 / 975 300 / 300 Balance -115 / -225 -200 / -200 Physical Exam Const: COMMON NORMALS: no apparent distress Resp: COMMON NORMALS: normal respiratory effort and clear to auscultation bilaterally AUSCULTATION: clear to auscultation bilaterally Cardio: COMMON NORMALS: regular rate, regular rhythm and S2 normal heart sound RATE: regular rate RHYTHM: regular rhythm HEART SOUNDS: S2 normal OTHER: No lower extremity edema GI: COMMON NORMALS: normal to inspection, nondistended, normoactive bowel sounds and soft to palpation; negative for non-tender PALPATION: Yes soft Urinary Catheter Management^: Lou: Cath Placed During This Visit: yes Reason for Continuing Indwelling Catheter: Acute Urinary Retention or Obstruction Urinary Catheter Date of Insertion: 04/23/19 Urinary Catheter Time of Insertion: 20:30 Data : 04/26/19 05:25 04/26/19 05:25 Micro: Microbiology 04/23/19 20:45 Urine Culture - Final Urine,Clean Catch Escherichia coli 04/23/19 11:40 Blood Culture - Preliminary Blood Gram positive ibeth A&P Assessment and plan (1) Influenza with respiratory manifestation: Status: Acute Code(s): J11.1 - Influenza due to unidentified influenza virus with other respiratory manifestations (2) Acute respiratory failure with hypoxia: Status: Acute Code(s): J96.01 - Acute respiratory failure with hypoxia (3) Acute kidney injury: Prerenal Status: Acute Code(s): N17.9 - Acute kidney failure, unspecified (4) Diarrhea: Status: Acute Code(s): R19.7 - Diarrhea, unspecified (5) Sepsis with acute organ dysfunction and septic shock: As exhibited by fever, tachycardia, tachypnea and elevated lactic acid Status: Acute Code(s): A41.9 - Sepsis, unspecified organism; R65.21 - Severe sepsis with septic shock Additional A&P Information Non-ST elevation [place] type II Hyperglycemia without previous history of diabetes mellitus. Oropharyngeal dysphagia. Intellectual disability Bipolar and major depressive disorder. Pancytopenia, likely related to underlying infection Elevated liver enzymes. This also appears to be related to infection. Abdominal pain. PLAN: Hold Lasix and start IV fluids with half-normal saline with potassium. Proceed with CT scan of abdomen/pelvis for further evaluation. Unfortunately patient will not be able to tolerate oral contrast. Continue current antibiotics for now. Attestations Medical Necessity Statement*: Patient with abdominal pain and sepsis as well as multiorgan involvement requires close inpatient monitoring and treatment as well as evaluation. Coding Level of Care Code Acute Bowling Alley Refinisher for [facility] Diagnoses Influenza with respiratory manifestation J11.1 Acute respiratory failure with hypoxia J96.01 Acute kidney injury N17.9 Diarrhea R19.7 Sepsis with acute organ dysfunction and septic shock A41.9; R65.21
--- NOTE | 2019-04-26 16:50 | CTR_ITS ---
PROCEDURE INFORMATION: Exam: CT Abdomen And Pelvis Without Contrast Exam date and time: 04/26/2019 6:04 PM Age: 63 years old Clinical indication: Abdominal tenderness and bloating; Prior surgery; Surgery date: 6+ months; Surgery type: Gb; Patient HX: Abd pain w distention - sepsis - diarrhea - acute kidney injury; Additional info: Abdominal pain TECHNIQUE: Imaging protocol: Computed tomography of the abdomen and pelvis without contrast. Total DLP: 1379.66 mGy-cm Radiation optimization: All CT scans at this facility use at least one of these dose optimization techniques: automated exposure control; mA and/or kV adjustment per patient size (includes targeted exams where dose is matched to clinical indication); or iterative reconstruction. COMPARISON: CT abdomen pelvis wo con [id number] 04/23/2019 12:42 PM FINDINGS: Lungs: Dependent atelectasis, left greater than right. Liver: Normal. No mass. Gallbladder and bile ducts: Cholecystectomy. The bile ducts are normal. Pancreas: Normal. No ductal dilation. Spleen: Normal. No splenomegaly. Adrenals: 3.6 cm left adrenal nodule with some areas of Hounsfield units measuring less than 0. Normal right adrenal gland. Kidneys and ureters: 1.0 cm round hyperdense lesion in the posterior left kidney. 2.1 cm fluid density cyst in the superior left kidney. Stomach and bowel: Air-fluid level in the stomach. Mild diverticulosis of the distal colon. Colon is relatively decompressed with scattered gas throughout. 12.1 cm infraumbilical hernia which contains fat and several loops of obstructed small bowel. Partial resection of the proximal colon with an ileocolonic anastomosis in the right upper quadrant. Multiple loops distended small bowel measuring up to 4.7 cm with air-fluid levels. Relative decompression of the small bowel exiting the umbilical hernia. Appendix: No evidence of appendicitis. Intraperitoneal space: Unremarkable. No free air. No significant fluid collection. Vasculature: Unremarkable. No abdominal aortic aneurysm. Lymph nodes: Unremarkable. No enlarged lymph nodes. Bladder: Lou catheter in the urinary bladder. Reproductive: Unremarkable as visualized. Bones/joints: Chronic bilateral L5 pars fractures with subluxation. Chronic appearing L1 and T11 compression fractures. Soft tissues: See Stomach And Bowel Finding. CT/CT abdomen pelvis wo con [id number] IMPRESSION: 1. Complete versus high-grade partial small bowel obstruction due to a large infraumbilical hernia containing loops of small bowel. 2. Prior resection of the proximal colon. 3. Benign left adrenal adenoma. 4. Probable 1.0 cm proteinaceous cyst in the left kidney. This can be confirmed with ultrasound. Radiation Dose CTDIVOL = (mGy): DLP = 1379.66 (mGy-cm)
--- NOTE | 2019-04-26 18:14 | PC.NURSE ---
Patient to CT at this time for CT scan of abdomen.
[2019-04-26] MEDS: sodium chlor 0.45% +KCl 20 mEq 20 MEQ/1,000 ML BAG 100 MEQ IV (18:47)
[2019-04-26] MEDS: enoxaparin 30 mg/0.3 mL Syringe SUBCUT (21:13)
[2019-04-26 23:02] LABS: Vancomycin Trough 24.2 ug/mL (10-15)
[2019-04-26] MEDS: vancomycin 1,000 MG in sodium chloride 0.9% 250 ML 250 MG IV (23:08)
[2019-04-27] VITALS (13 sets, daily range): BP systolic 90–133; BP diastolic 65–85; PULSE 99–141; RESP 16–34; TEMP 36.3–37.6; O2SAT 92–97
[2019-04-27] MEDS: piperacillin-tazobactam 3.375 GM in sodium chloride 0.9% (plus) 100 ML IV ×3 (01:15→17:14)
[2019-04-27] MEDS: sodium chlor 0.45% +KCl 20 mEq 20 MEQ/1,000 ML BAG 100 MEQ IV ×2 (05:30→17:13)
--- NOTE | 2019-04-27 07:53 | PM.CONSULT ---
Providers/Reason For Consult Consulting Physican/Specialty*: Jono Valero MD General surgery Reason for Consult*: Bowel obstruction Attending Physician: Guillermo Reza MD Primary Care Provider: Sai Hayden DO History of Present Illness History of Present Illness Ms.Ruby Gonzales is a 63 year old female patient anursing home resident she was admitted couple of days ago due to shortness of breath and excessive diarrhea patient was evaluated by the hospitalist service and undergone different measures to treat her respiratory problem and she was tested positive for influenza B according to the notes, patient does have a baseline chronic incarcerated ventral incisional hernia and does not seem that the patient had history of bowel obstruction yet on clinical examination per Dr. Reza yesterday he was concerned that the hernia site was tender and so he elected to repeat CT scan of the abdomen and pelvis that was concerning for complete bowel obstruction, today I was consulted to evaluate the patient for these findings from general surgery standpoint of view. Unfortunately I am not able to obtain much history from the patient Review of Systems General: Reports: ROS unobtainable due to medical condition Meds/Allergies Home Medications and Allergies Home Medications Medication Instructions Recorded Confirmed Type acetaminophen [Tylenol] 650 mg PO Q8H PRN 04/23/19 04/23/19 History amantadine HCl 100 mg PO DAILY 04/23/19 04/23/19 History bisacodyl 10 mg MS DAILY PRN 04/23/19 04/23/19 History chlorpromazine 100 mg PO TID 04/23/19 04/23/19 History clonazepam [Klonopin] 0.5 mg PO TID 04/23/19 04/23/19 History dextromethorphan-quinidine 1 cap PO Q12H 04/23/19 04/23/19 History [Nuedexta] furosemide 40 mg PO DAILY 04/23/19 04/23/19 History levetiracetam 500 mg PO BID 04/23/19 04/23/19 History magnesium hydroxide [Milk of 400 mg PO DAILY PRN 04/23/19 04/23/19 History Magnesia] metoprolol succinate 25 mg PO BID 04/23/19 04/23/19 History oxcarbazepine 300 mg PO TID 04/23/19 04/23/19 History potassium chloride 20 meq PO BID 04/23/19 04/23/19 History selenium sulfide [Anti-Dandruff] See Rx Instructions .ROUTE .COMPLEX 04/23/19 04/23/19 History sodium phosphates [Enema] 118 ml MS DAILY PRN 04/23/19 04/23/19 History topiramate [Topamax] 50 mg PO TID 04/23/19 04/23/19 History Allergies Allergy/AdvReac Type Severity Reaction Status Date / Time nitrofurantoin Allergy ALGY-Rash Verified 04/27/19 07:57 [From Macrobid] oseltamivir [From Tamiflu] Allergy ALGY-Hives Verified 04/27/19 07:57 Current Medications Current Medications Generic Name Dose Route Start Last Admin Trade Name Freq PRN Reason Stop Dose Admin Acetaminophen 650 mg 04/24/19 02:50 04/24/19 03:03 Tylenol PO 650 mg Q6H PRN Administration MILD PAIN Albuterol/Ipratropium 3 ml 04/23/19 17:54 04/26/19 20:28 Duoneb INHALATION 3 ml Q6H PRN Administration SHORTNESS OF BREATH Chlorpromazine HCl 100 mg 04/25/19 21:00 04/26/19 21:13 Thorazine PO 100 mg TID ANTONIO Administration Clonazepam 0.5 mg 04/23/19 21:00 04/26/19 21:13 Klonopin PO 0.5 mg TID ANTONIO Administration Enoxaparin Sodium 30 mg 04/23/19 17:45 04/26/19 21:13 Lovenox SUBCUT 30 mg Q24H ANTONIO Administration Piperacillin Sod/Tazobactam 100 mls @ 25 mls/hr 04/25/19 00:30 04/27/19 05:31 Sod 3.375 gm/ Sodium Chloride IV Infused Q8H ANTONIO Infusion Protocol Potassium Chloride/Sodium Chloride 20 meq in 1,000 mls @ 100 mls/hr 04/26/19 17:00 04/27/19 05:30 Sodium Chlor 0.45% +Kcl 20 Meq IV 100 mls/hr .Q10H ANTONIO Administration Levetiracetam 500 mg 04/23/19 18:00 04/26/19 17:55 Keppra PO 500 mg BID ANTONIO Administration Metoprolol Succinate 50 mg 04/25/19 18:00 04/26/19 17:56 Toprol Xl PO Not Given BID ANTONIO Non-Formulary Medication 100 mg 04/24/19 09:00 04/26/19 09:36 Amantadine Hcl PO Not Given DAILY [facility] Oxcarbazepine 300 mg 04/23/19 21:00 04/26/19 21:13 Trileptal PO 300 mg TID ANTONIO Administration PFSH Acute PFSH: Medical History Anxiety B12 deficiency anemia Bipolar 1 disorder Colon cancer Dermatitis, seborrheic Dysphagia, oropharyngeal Extrapyramidal and movement disorder GERD (gastroesophageal reflux disease) Hypertension Intellectual disability Major depression Surgical History History of partial colectomy Hx of cataract surgery Social History Smoking and tobacco status: never smoked Vitals/I&O/Wt Last Vital Signs Temp 97.7 F 04/27/19 04:00 Pulse 106 H 04/27/19 04:00 Resp 20 H 04/27/19 04:00 BP 103/79 04/27/19 04:00 Pulse Ox 95 04/27/19 04:00 04/26/19 04/27/19 04/27/19 22:59 06:59 14:59 Intake Total 220 / 320 1461.667 / 1781.667 Output Total 250 / 550 Balance -30 / -230 1461.667 / 1231.667 Physical Exam Const: EXAM LIMITATIONS: altered mental status GENERAL APPEARANCE: lethargic NUTRITIONAL APPEARANCE: obese centrally obese ORIENTATION/CONSCIOUSNESS: Yes lethargic HENMT: COMMON NORMALS: normocephalic HEAD & SCALP: normocephalic Eye: COMMON NORMALS: PERRL and no scleral icterus PUPIL: Yes PERRL Lymph: LYMPHATIC: no lymphadenopathy noted Chest: COMMONS NORMALS: inspection of chest normal Resp: COMMON NORMALS: normal respiratory effort and clear to auscultation bilaterally AUSCULTATION: clear to auscultation bilaterally Cardio: COMMON NORMALS: S1 normal heart sound and S2 normal heart sound; negative for no murmurs HEART SOUNDS: S1 normal and S2 normal GI: COMMON NORMALS: soft to palpation; negative for no hepatosplenomegaly INSPECTION: Yes normal to inspection PALPATION: Yes soft, No firm, No tender, No guarding, No rigid, No no hepatosplenomegaly and Yes hernia (Presence of chronic incarcerated ventral incisional hernia yet partial reducibility was obtained at bedside by me) : EXTERNAL FEMALE EXAM: Yes hernia (Presence of chronic incarcerated ventral incisional hernia yet partial reducibility was obtained at bedside by me) Neuro: SENSORIUM/ORIENTATION: Yes lethargic Skin: COMMON NORMALS: no rashes or lesions noted GENERAL SKIN EXAM: no rashes or lesions noted Urinary Catheter Management^: Lou: Cath Placed During This Visit: yes Reason for Continuing Indwelling Catheter: Chronic Indwelling Urinary Catheter on Admission Urinary Catheter Date of Insertion: 04/23/19 Urinary Catheter Time of Insertion: 20:30 Data Micro: Micro: Microbiology 04/23/19 20:45 Urine Culture - Fi nal Urine,Clean Catch Escherichia col i A&P Assessment and plan (1) Ventral incisional hernia: After history taking physical examination and reviewing the chart and images with my personal interpretation, I did notice that there is increase of the amount of bowel loops in the hernia sac demonstrated on the repeat CT scan in comparison to the one obtained on April 22, likely due to respiratory distress and repeated cough that increased intra-abdominal pressure, there is no evidence of bowel obstruction clinically detected and patient continues to have loose stools, was able to push partially bowel loops back to the abdominal cavity with ease. I do believe at this point that the patient has a baseline chronic incarcerated ventral incisional hernia at that may likely warrant surgical repair down the road after medical optimization. Repeated physical examination Encourage nutrition after dysphagia evaluation per speech pathology Correction of electrolytes Thank you for consulting general surgery to participate taking care Status: Acute Code(s): K43.2 - Incisional hernia without obstruction or gangrene Consult Attestations Medical Necessity Statement: Per hospitalist service Time Spent in Patient Care: 16 - 35 minutes (>than 50% of time spent in counselling and/or direct pt care on unit). Coding Level of Care Code Acute Nuclear Auxiliary Operator for [facility] Fwd Exam Comprehensive Diagnoses Ventral incisional hernia K43.2
[2019-04-27] MEDS: ipratropium-albuterol 3 mL Neb INHALATION ×3 (08:01→20:32)
--- NOTE | 2019-04-27 08:17 | P.PN_ITS ---
Subjective Subjective: Interval history: Patient denies being any pain. Reports that she has poor appetite and does not want to eat. Her CT scan came back with concern for small bowel obstruction and Dr. Valero was consulted. Patient has hernia which he was able to reduce. Her abdominal tenderness on exam appears to be improved compared to last evening. She had 550 urinary output since yesterday. Her breathing appears to be overall improving. Vitals/I&O/Wt Last Vital Signs Temp 97.7 F 04/27/19 07:49 Pulse 115 H 04/27/19 08:02 Resp 22 H 04/27/19 08:02 BP 110/78 04/27/19 07:49 Pulse Ox 95 04/27/19 08:02 04/26/19 04/27/19 04/27/19 22:59 06:59 14:59 Intake Total 220 / 320 1461.667 / 1781.667 Output Total 250 / 550 Balance -30 / -230 1461.667 / 1231.667 Physical Exam Urinary Catheter Management^: Lou: Cath Placed During This Visit: yes Reason for Continuing Indwelling Catheter: Chronic Indwelling Urinary Catheter on Admission Urinary Catheter Date of Insertion: 04/23/19 Urinary Catheter Time of Insertion: 20:30 Data : 04/26/19 05:25 04/26/19 05:25 Micro: Microbiology 04/23/19 20:45 Urine Culture - Final Urine,Clean Catch Escherichia coli A&P Assessment and plan (1) Influenza with respiratory manifestation: Status: Acute Code(s): J11.1 - Influenza due to unidentified influenza virus with other respiratory manifestations (2) Acute respiratory failure with hypoxia: Status: Acute Code(s): J96.01 - Acute respiratory failure with hypoxia (3) Acute kidney injury: Prerenal Status: Acute Code(s): N17.9 - Acute kidney failure, unspecified (4) Diarrhea: Status: Acute Code(s): R19.7 - Diarrhea, unspecified (5) Sepsis with acute organ dysfunction and septic shock: As exhibited by fever, tachycardia, tachypnea and elevated lactic acid Status: Acute Code(s): A41.9 - Sepsis, unspecified organism; R65.21 - Severe sepsis with septic shock Additional A&P Information Non-ST elevation NM type II Hyperglycemia without previous history of diabetes mellitus. Oropharyngeal dysphagia. Intellectual disability Bipolar and major depressive disorder. Pancytopenia, likely related to underlying infection Elevated liver enzymes. This also appears to be related to infection. Hypernatremia. Abdominal pain/Small bowel obstruction due to incarcerated hernia, not present on admission PLAN: Awaiting morning labs. Continue IV hydration for now. Hopefully with hernia reduction patient's condition will improve and she will start eating better. Continue current antibiotics for now. Will request KUB for morning. Attestations Medical Necessity Statement*: Patient with respiratory failure as well as small bowel obstruction requires close inpatient monitoring and treatment. Coding Level of Care Code Acute Research Quality Assurance Analyst for [facility] Fwd Diagnoses Influenza with respiratory manifestation J11.1 Acute respiratory failure with hypoxia J96.01 Acute kidney injury N17.9 Diarrhea R19.7 Sepsis with acute organ dysfunction and septic shock A41.9; R65.21
[2019-04-27] MEDS: levETIRAcetam 500 mg Tablet PO ×2 (08:23→18:23)
[2019-04-27] MEDS: CLONazepam 0.5 mg Tablet PO ×2 (08:23→17:09)
[2019-04-27] MEDS: OXcarbazepine 300 mg Tablet PO ×2 (08:23→17:09)
[2019-04-27 09:37] LABS: Hematocrit 36.9 % (37.0-47.0); Hemoglobin 11.2 g/dL (11.5-15.3); Lymphocytes # 0.7 10^3/uL (0.8-4.8); Lymphocytes % 22.2 %; Mean Corpuscular HGB Conc 30.4 g/dL (30.0-36.0); Mean Corpuscular Hemoglobin 28.7 pg (28.0-34.0); Mean Corpuscular Volume 94.6 fL (81-99); Mean Platelet Volume 11.7 fL (7.4-10.4); Monocytes # 0.3 10^3/uL (0.2-0.9); Monocytes % 10.1 %; Neutrophils % 66.7 %; Nucleated Red Blood Cells % 0 %; Platelet Count 128 10^3/cmm (130-400); Red Cell Distribution Width 15.7 % (12.1-15.1)
[2019-04-27 09:48] LABS: Alanine Aminotransferase 401 U/L (0-33); Albumin Level 3.3 g/dL (3.5-5.2); Alkaline Phosphatase 100 IU/L (35-105); Anion Gap 21.4 (5-19); Aspartate Amino Transferase 328 U/L (0-32); Blood Urea Nitrogen 38 mg/dL (8-23); Calcium 8.8 mg/dL (8.5-10.5); Carbon Dioxide 18 mmol/L (22-29); Chloride 112 mmol/L (98-107); Globulin 3.2 g/dL (1.3-4.6); Glomerular Filtration Rate 23.6 mL/min (90-130); Glucose 121 mg/dL (65-115); Osmolality Calculated 305 mOsm/kg (285-295); Potassium 3.4 mmol/L (3.5-5.1); Sodium 148 mmol/L (136-145); Total Bilirubin 0.6 mg/dL (0.15-1.2); Total Protein 6.5 g/dL (6.6-8.7)
[2019-04-27] MEDS: acetaminophen 325 mg Tablet 650 MG PO (11:44)
--- NOTE | 2019-04-27 14:29 | PC.NURSE ---
spoke with Danis Michelle patient's Guardian about patient's hernia. Dr. Valero states that patient is not a healthy surgical candidate. Danis agrees.
[2019-04-27] MEDS: metoprolol succinate ER (24 HR) 50 mg Tablet PO (17:09)
[2019-04-27] MEDS: metoprolol tartrate 1 mg/1 mL SDV 5 mL 5 MG IV (19:05)
[2019-04-27] MEDS: enoxaparin 30 mg/0.3 mL Syringe SUBCUT (20:59)
[2019-04-28] VITALS (10 sets, daily range): BP systolic 92–135; BP diastolic 66–84; PULSE 121–139; RESP 20–28; TEMP 37.3–38; O2SAT 92–97
[2019-04-28] MEDS: metoprolol tartrate 1 mg/1 mL SDV 5 mL 5 MG IV ×2 (00:11→23:03)
[2019-04-28] MEDS: piperacillin-tazobactam 3.375 GM in sodium chloride 0.9% (plus) 100 ML IV ×3 (00:13→18:04)
--- NOTE | 2019-04-28 00:52 | XRR_ITS ---
PROCEDURE INFORMATION: Exam: XR Chest, 1 View Exam date and time: 04/28/2019 1:45 AM Age: 63 years old Clinical indication: Device placement; Ng tube; Prior surgery; Surgery date: 6+ months; Surgery type: Gb, colon; Patient HX: Ng placement PT w sbo and HX of colon CA TECHNIQUE: Imaging protocol: XR of the chest Views: 1 view. COMPARISON: CR XR chest 1V portable [id number] 04/23/2019 11:50 AM FINDINGS: Tubes, catheters and devices: There is an orogastric tube with tip in the stomach. Lungs: Nonspecific unchanged bibasilar opacity is present, consistent with atelectasis, edema, or pneumonia. There is poor inspiration. Pleural space: Unremarkable. No pleural effusion. No pneumothorax. Heart/Mediastinum: Unremarkable. No cardiomegaly. Bones/joints: No acute abnormality. XR/XR chest 1V portable [id number] IMPRESSION: 1. There is an orogastric tube with tip in the stomach. 2. Nonspecific unchanged bibasilar opacity is present, consistent with atelectasis, edema, or pneumonia.
--- NOTE | 2019-04-28 00:52 | PC.RESP ---
Patient sounds wet to me, possible aspiration. RT NT suctioned patient and was able to remove some black appearing emesis. Patient then vomited black emesis with nurse present, patient can no longer be on bipap if vomiting. RT called and spoke with Dr. Tomlinson regarding patient, heart rate is now trending up as well as respirations. Oxygen saturation remains at 93% on 2L NC. Dr. Tomlinson asked if patient had an NG tube currently, which patient does not at this time. Dr. Tomlinson states to continue current treatment at this time.
[2019-04-28] MEDS: ipratropium-albuterol 3 mL Neb INHALATION (02:26)
[2019-04-28 05:47] LABS: Basophils % 0.2 %; Hematocrit 36.7 % (37.0-47.0); Hemoglobin 11.2 g/dL (11.5-15.3); Lymphocytes # 0.7 10^3/uL (0.8-4.8); Lymphocytes % 15.5 %; Mean Corpuscular HGB Conc 30.5 g/dL (30.0-36.0); Mean Corpuscular Hemoglobin 28.6 pg (28.0-34.0); Mean Corpuscular Volume 93.9 fL (81-99); Mean Platelet Volume 11.7 fL (7.4-10.4); Monocytes # 0.4 10^3/uL (0.2-0.9); Monocytes % 10.5 %; Neutrophils # 3.1 10^3/uL (1.8-7.7); Neutrophils % 72.8 %; Nucleated Red Blood Cells % 0 %; Platelet Count 142 10^3/cmm (130-400); Red Blood Count 3.91 10^6/uL (4.1-5.3); White Blood Count 4.2 10^3/uL (4.0-10.0)
[2019-04-28 06:06] LABS: Alanine Aminotransferase 324 U/L (0-33); Albumin Level 3.4 g/dL (3.5-5.2); Alkaline Phosphatase 108 IU/L (35-105); Anion Gap 17.5 (5-19); Aspartate Amino Transferase 216 U/L (0-32); Blood Urea Nitrogen 37 mg/dL (8-23); Calcium 8.7 mg/dL (8.5-10.5); Carbon Dioxide 23 mmol/L (22-29); Chloride 114 mmol/L (98-107); Globulin 3.4 g/dL (1.3-4.6); Glomerular Filtration Rate 21.3 mL/min (90-130); Glucose 131 mg/dL (65-115); Osmolality Calculated 311 mOsm/kg (285-295); Potassium 3.5 mmol/L (3.5-5.1); Sodium 151 mmol/L (136-145); Total Bilirubin 0.5 mg/dL (0.15-1.2); Total Protein 6.8 g/dL (6.6-8.7)
--- NOTE | 2019-04-28 06:08 | P.PN_ITS ---
Subjective Subjective: Interval history: Apparently the patient had issues with secretions yesterday and she ended up by having NG placement and overnight she had about 700 out. And no evidence of bowel movements per nursing staff Vitals/I&O/Wt Last Vital Signs Temp 100.4 F H 04/28/19 04:00 Pulse 139 H 04/28/19 04:00 Resp 22 H 04/28/19 04:00 BP 135/84 04/28/19 04:00 Pulse Ox 95 04/28/19 04:00 04/27/19 04/27/19 04/28/19 14:59 22:59 06:59 Intake Total 400 / 400 1501.667 / 1901.667 100 / 2001.667 Output Total 300 / 300 250 / 550 Balance 100 / 100 1251.667 / 1351.667 100 / 1451.667 Physical Exam Narrative: EXAM NARRATIVE: Patient is conscious alert BMI 32 Head and neck examination PERRLA no masses no cervical lymphadenopathy no jaundice NG in place with bilious output Abdomen nontender nondistended soft no organomegaly guarding or rigidity/no signs of peritonitis Presence of a partially reducible ventral incisional hernia 50% of the hernia is being reducible the remaining 50% is chronically incarcerated Urinary Catheter Management^: Lou: Cath Placed During This Visit: yes Reason for Continuing Indwelling Catheter: Chronic Indwelling Urinary Catheter on Admission Urinary Catheter Date of Insertion: 04/23/19 Urinary Catheter Time of Insertion: 20:30 Data : 04/28/19 05:29 04/28/19 05:29 Micro: Microbiology 04/23/19 11:40 Blood Culture - Preliminary Blood Corynebacterium species A&P Assessment and plan (1) Small bowel obstruction: Clinical examination shows that the patient has increased output in the NG tube will continue to intermittent wall suction. If patient continues to demonstrate this picture without resolving per conservative measures she would require laparotomy possible bowel resection. Likely the patient will end up on a mechanical ventilation after surgery and possible tracheotomy down the road. In the interim we will obtain a KUB erect and supine position and continue to have repeated physical examination on the We will plan to discuss with the power of [place] attorney further patient's management as of today patient's clinical picture changed in comparison to yesterday, which may warrant surgical intervention at some point. Continue IV fluid resuscitation and monitor urine output Status: Acute Code(s): K56.609 - Unspecified intestinal obstruction, unspecified as to partial versus complete obstruction Attestations Medical Necessity Statement*: Medical necessity care is expected to cross 2 midnights Time Spent in Patient Care: 16 - 35 minutes (>than 50% of time spent in counselling and/or direct pt care on unit) . Coding Level of Care Code Acute Oracle Fusion Consultant for [facility] Fwd Diagnoses Small bowel obstruction K56.609
--- NOTE | 2019-04-28 06:57 | XR_ITS ---
WS: [id number] XR chest 1V portable [id number] REASON FOR EXAM: dyspnea/cough FINDINGS: Feeding tube is seen in good position. Scoliosis throughout the thoracic spine. The lung nj are relatively clear. The lung nj are hypoaerated. XR/XR chest 1V portable [id number] IMPRESSION: Feeding tube is again seen in the stomach good position. The lung nj are unchanged since previous exam with hypoaerated lungs.
--- NOTE | 2019-04-28 07:00 | XR_ITS ---
WS: [id number] KUB, portable AP supine, 04/28/2019 Clinical Data: Small bowel obstruction Comparison: CT abdomen and pelvis, 04/26/2019. Findings: The dilated central small bowel loops have not changed. There is air in the transverse colon. There are clips in the right upper quadrant from a cholecystectomy. No abnormal intra-abdominal masses or c alcifications are seen. Monitor leads are on the abdominal wall. XR/XR KUB portable [id number] Impression: Dilated small bowel loops consistent with small bowel obstruction.
--- NOTE | 2019-04-28 09:12 | PC.NURSE ---
THIS NURSE CALLED DR RODRIGUEZ THIS PT MEDICATIONS ARE ALL PO AND THE PT HAS AN NG TUBE WITH QUITE A BIT OF OUTPUT THROUGH NG TUBE SO MEDICATIONS ARE NOT GIVEN THIS AM BY THIS NURSE.
--- NOTE | 2019-04-28 11:41 | DCPLANNER ---
Phoned the Public Administrators office with the information regarding the IM. [place]; Lilia receives the message as Mr. Moscoso is not in at this moment. She will remind him of the opportunity.
--- NOTE | 2019-04-28 12:26 | PC.CHAP ---
Pastoral Care Encounter/Spiritual Assessment Type of Contact [x] Declined councillor aboriginal land council visit [] Patient/Family/Request visit [] Outpatient visit [] Follow-up visit [] Physician referral [] Code/Alert [] Routine visit [] Staff referral [] Actively dying [] Patient sleeping [] Family support [] [] Out of room [] Palliative care [] [] Receiving care in room [] Pre-surgical visit [] Trauma [] Long length of stay [] ICU visit [] Other: Relational/Emotional Strength [] Patient feels connected with others/family/visitors/staff [] Distress [] Loneliness/isolation [] Abandonment Spirituality of Patient [] Person of [place] [] Attends [employer] of their [place] [] Believes in Prayer [] Reads Bible or Holiness materials [] There are Spiritual issues to be addressed Spray Drier Operator Interventions [] Prayer [] Active listening [] Non-anxious presence [] Spiritual/emotional support [] Crisis/trauma care [] Spiritual counseling [] Bereavement support [] Provided bereavement packet [] Provided Bible/devotional materials [] Provided toy/stuffed animal, coloring book to patient or family member [] Provided Communion [] Anointing/[place] [] Salvation [] Completed spiritual assessment [] Other: Impact on Illness or Injury [] Angry [] Fearful [] Anxious [] Often cries [] Exhaustion [] Unable to work [] Unable to attend bahai [] Unable to walk/stand [] Unable to read [] Unable to drive [] Unable to eat/drink [] Unable to sleep [] Unable to be with family [] Patient intubated [] Other: Summary Declined councillor aboriginal land council visit at this time. Time spent with patient 5 min
--- NOTE | 2019-04-28 17:15 | P.PN_ITS ---
Subjective Subjective: Interval history: Chart reviewed, overnight patient developed nausea, vomiting and had NG tube placed. So far has had an output of 2250 mL. Currently n.p.o. Case discussed with Dr. Valero earlier today, will continue conservative management at this time and monitor patient's progress as she is a very poor surgical candidate particularly from a respiratory status standpoint. She was somewhat lethargic per nursing staff earlier today, seems to be more alert this afternoon. Complains of sore throat so will add chloraseptic spray. Noted tachycardia with HR in the 120s. Medications: Reviewed: Yes Medication Review Details: Active Medications Generic Name Dose Route Start Last Admin Trade Name Freq PRN Reason Stop Dose Admin Acetaminophen 650 mg 04/24/19 02:50 04/27/19 11:44 Tylenol PO 650 mg Q6H PRN Administration MILD PAIN Albuterol/Ipratrop ium 3 ml 04/23/19 17:54 04/28/19 02:26 Duoneb INHALATION 3 ml Q6H PRN Administration SHORTNESS OF MATTHIEU TH Bisacodyl 10 mg 04/23/19 17:39 Dulcolax PO DAILY PRN CONSTIPATION Chlorpromazine HCl 100 mg 04/25/19 21:00 04/28/19 09:11 Thorazine PO Not Given TID ANTONIO Clonazepam 0.5 mg 04/23/19 21:00 04/28/19 09:11 Klonopin PO Not Given TID ANTONIO Enoxaparin Sodium 30 mg 04/23/19 17:45 04/27/19 20:59 Lovenox SUBCUT 30 mg Q24H ANTONIO Administration Piperacillin Sod/T azobactam 100 mls @ 25 mls/ hr 04/25/19 00:30 04/28/19 09:15 Sod 3.375 gm/ So dium Chloride IV 25 mls/hr Q8H ANTONIO Administration Protocol Potassium Chloride /Sodium Chloride 20 meq in 1,000 m ls @ 100 mls/hr 04/26/19 17:00 04/28/19 13:25 Sodium Chlor 0.4 5% +Kcl 20 Meq IV 100 mls/hr .Q10H ANTONIO Infusion Vancomycin HCl 1,0 00 mg/ 250 mls @ 250 mls /hr 04/27/19 11:00 04/27/19 13:51 Sodium Chloride IV Not Given Q36H ANTONIO Protocol Levetiracetam 500 mg 04/23/19 18:00 04/28/19 09:11 Keppra PO Not Given BID [facility] Metoprolol Succina te 50 mg 04/25/19 18:00 04/28/19 09:11 Toprol Xl PO Not Given BID [facility] Non-Formulary Medi cation 100 mg 04/24/19 09:00 04/28/19 09:11 Amantadine Hcl PO Not Given DAILY [facility] Oxcarbazepine 300 mg 04/23/19 21:00 04/28/19 09:11 Trileptal PO Not Given TID [facility] Sodium Phosphate 118 ml 04/23/19 17:52 Fleet Enema MS DAILY PRN Constipation nitrofurantoin [From Macrobid] Allergy (Verified 04/27/19 07:57) ALGY-Rash oseltamivir [From Tamiflu] Allergy (Verified 04/27/19 07:57) ALGY-Hives Vitals/I&O/Wt Last Vital Signs Temp 99.2 F 04/28/19 16:00 Pulse 125 H 04/28/19 16:07 Resp 24 H 04/28/19 16:07 BP 92/66 04/28/19 16:00 Pulse Ox 94 04/28/19 16:07 04/28/19 04/28/19 04/28/19 06:59 14:59 22:59 Intake Total 100 / 2001.667 0 / 0 Output Total 700 / 1250 500 / 500 Balance -600 / 751.667 -500 / -500 Physical Exam Const: COMMON NORMALS: no apparent distress GENERAL APPEARANCE: management coordinator perative, frail appearing and appears older than stated age; not comfortable ORIENTATION/CONSCIOUSNESS: Yes awake HENMT: COMMON NORMALS: normocephalic, head/scalp atraumatic and hearing grossly normal bilaterally HEAD & SCALP: normocephalic and atraumatic NOSE: other (NGT in place) Eye: COMMON NORMALS: PERRL, EOMs intact bilaterally and conjunctivae normal CONJUNCTIVA: Yes conjunctivae normal PUPIL: Yes PERRL Neck/C-Spine: COMMON NORMALS: full ROM GENERAL: Yes normal visual inspection and Yes trachea midline Resp: COMMON NORMALS: normal respiratory effort, no retractions, no use of accessory muscles and clear to auscultation bilaterally EFFORT & INSPECTION: Yes able to speak in complete sentences, Yes symmetric chest movement and Yes tachypneic AUSCULTATION: clear to auscultation bilaterally Cardio: COMMON NORMALS: regular rate, regular rhythm, S1 normal heart sound, S2 normal heart sound and no murmurs RATE: regular rate RHYTHM: regular rhythm HEART SOUNDS: S1 normal and S2 normal GI: COMMON NORMALS: soft to palpation and non-tender INSPECTION: Yes abdominal distension and Yes visible herniation (known ventral hernia, partially reducible) AUSCULTATION: Yes hypoactive bowel sounds PALPATION: Yes soft : BLADDER/KIDNEY EXAM: Yes catheter in place Catheter type (Female): urethral Extremity: COMMON NORMALS: normal to inspection, full ROM and no clubbing, cyanosis or edema; negative for no pedal edema Neuro: COMMON NORMALS: moves all extremities, no focal motor deficits and no sensory deficits noted Psych: COMMON NORMALS: thought process normal and cooperative SPEECH: Yes other (speech quite high pitched and somewhat difficult to understand) MOOD & AFFECT: Yes anxious THOUGHT PROCESS: normal thought process Skin: COMMON NORMALS: no rashes or lesions noted, no jaundice, no petechiae and no mottling GENERAL SKIN EXAM: no rashes or lesions noted Urinary Catheter Management^: Lou: Cath Placed During This Visit: yes Urethral Indwelling: Yes Reason for Continuing Indwelling Catheter: Chronic Indwelling Urinary Catheter on Admission Urinary Catheter Date of Insertion: 04/23/19 Urinary Catheter Time of Insertion: 20:30 Data : 04/28/19 05:29 04/28/19 05:29 Micro: Microbiology 04/23/19 11:45 Blood Culture - Final Blood NO GROWTH AFTER 5 DAYS A&P Assessment and plan (1) Small bowel obstruction: -Noted evidence of small bowel obstruction on imaging -Required NG tube placement overnight secondary to worsening nausea and vomiting, continue to monitor output, continue n.p.o. status -Pain control and antiemetics as needed -Surgery consult by Dr. Goss appreciated; continue conservative management at this time -continue serial abdominal examinations Status: Acute Code(s): K56.609 - Unspecified intestinal obstruction, unspecified as to partial versus complete obstruction (2) Ventral incisional hernia: -has known chronically incarcerated ventral hernia, partially reducible Status: Acute Code(s): K43.2 - Incisional hernia without obstruction or gangrene (3) Influenza with respiratory manifestation: -found to be influenza B positive -has allergy to tamiflu -continue to monitor respiratory status; supplemental oxygen as needed Status: Acute Code(s): J11.1 - Influenza due to unidentified influenza virus with other respiratory manifestations Additional A&P Information -Obesity: BMI-32 kg/m2 -Seizure disorder; continue Keppra -Anxiety -hx of EPS, bipolar 1 disorder, depression; continue meds -known cognitive delay -Chronic normocytic anemia; baseline Hg around 11 -DAVID on CKD stage 3; baseline Cr around 1.3; continue to monitor renal function, avoid nephrotoxins, renally dose meds -hx of oropharyngeal dysphagia and with concern for possible aspiration overnight given N/V -Transaminitis, likely secondary to infection, continue to trend LFTs -Leukopenia; WBC wnl -Hypernatremia; continue to monitor Na -NSTEMI; likely type II given acute infection with associated sepsis -sepsis on admission as evidenced by lactic acidosis (now resolved), fever, tachycardia, tachypnea -DVT ppx with Lovenox -fall precautions -re-orient as needed -Dispo: [facility]; had DPOA Danis Vargas -Code status: DNR/DNI -guarded prognosis Attestations Medical Necessity Statement*: Patient requires hospitalization for continued management of small bowel obstruction, currently has NG tube in place with continued output Time Spent in Patient Care: Greater than 35 minutes (>than 50% of time spent in counselling and/or direct pt care on unit) . Coding Level of Care Code Acute Expanded Function Dental Assistant for [facility] Fwd Exam Comprehensive Diagnoses Small bowel obstruction K56.609 Ventral incisional hernia K43.2 Influenza with respiratory manifestation J11.1
[2019-04-28] MEDS: enoxaparin 30 mg/0.3 mL Syringe SUBCUT (20:31)
--- NOTE | 2019-04-28 21:20 | XR_ITS ---
WS: [id number] XR chest 1V portable [id number] REASON FOR EXAM: dyspnea/cough FINDINGS: The endotracheal tube is seen at the junction of the esophagus stomach has moved since finesse ier exams. The lung nj are hypoaerated. The overall appearance the chest is similar to previous exam April 28, 2019. XR/XR chest 1V portable [id number] IMPRESSION: Hypoaerated lungs. The positioning of the feeding tube is at the esophagogastric junction repositi oning recommended.
[2019-04-28] MEDS: sodium chlor 0.45% +KCl 20 mEq 20 MEQ/1,000 ML BAG 100 MEQ IV (22:12)
[2019-04-28] MEDS: vancomycin 1,000 MG in sodium chloride 0.9% 250 ML 250 MG IV (22:13)
[2019-04-29] VITALS (10 sets, daily range): BP systolic 92–122; BP diastolic 62–80; PULSE 110–146; RESP 16–25; TEMP 37.1–37.7; O2SAT 93–96
[2019-04-29] MEDS: piperacillin-tazobactam 3.375 GM in sodium chloride 0.9% (plus) 100 ML IV ×3 (01:53→18:48)
[2019-04-29] MEDS: acetaminophen 650 mg Supp PR (03:47)
[2019-04-29 05:38] LABS: Basophils % 0.2 %; Hematocrit 35.7 % (37.0-47.0); Hemoglobin 10.4 g/dL (11.5-15.3); Lymphocytes # 0.7 10^3/uL (0.8-4.8); Lymphocytes % 14.3 %; Mean Corpuscular HGB Conc 29.1 g/dL (30.0-36.0); Mean Corpuscular Hemoglobin 28.7 pg (28.0-34.0); Mean Corpuscular Volume 98.6 fL (81-99); Mean Platelet Volume 11.3 fL (7.4-10.4); Monocytes # 0.4 10^3/uL (0.2-0.9); Monocytes % 7.7 %; Neutrophils # 3.5 10^3/uL (1.8-7.7); Neutrophils % 77.4 %; Nucleated Red Blood Cells % 0 %; Platelet Count 128 10^3/cmm (130-400); Red Blood Count 3.62 10^6/uL (4.1-5.3); Red Cell Distribution Width 16.1 % (12.1-15.1); White Blood Count 4.6 10^3/uL (4.0-10.0)
[2019-04-29 05:58] LABS: Alanine Aminotransferase 221 U/L (0-33); Albumin Level 2.8 g/dL (3.5-5.2); Alkaline Phosphatase 86 IU/L (35-105); Anion Gap 19.3 (5-19); Aspartate Amino Transferase 124 U/L (0-32); Blood Urea Nitrogen 39 mg/dL (8-23); Calcium 8.7 mg/dL (8.5-10.5); Carbon Dioxide 22 mmol/L (22-29); Chloride 116 mmol/L (98-107); Globulin 3.4 g/dL (1.3-4.6); Glomerular Filtration Rate 23.6 mL/min (90-130); Glucose 92 mg/dL (65-115); Osmolality Calculated 315 mOsm/kg (285-295); Potassium 3.3 mmol/L (3.5-5.1); Sodium 154 mmol/L (136-145); Total Bilirubin 0.5 mg/dL (0.15-1.2); Total Protein 6.2 g/dL (6.6-8.7)
--- NOTE | 2019-04-29 06:19 | P.PN_ITS ---
Subjective Subjective: Interval history: Per nurses description patient started passing gas Vitals/I&O/Wt Last Vital Signs Temp 99.3 F 04/29/19 04:00 Pulse 115 H 04/29/19 04:00 Resp 22 H 04/29/19 04:00 BP 105/69 04/29/19 04:00 Pulse Ox 93 04/29/19 04:00 04/28/19 04/28/19 04/29/19 14:59 22:59 06:59 Intake Total 100 / 100 561.667 / 661.667 0 / 661.667 Output Total 500 / 500 1750 / 2250 300 / 2550 Balance -400 / -400 -1188.333 / -1588.333 -300 / -1888.333 Physical Exam Narrative: EXAM NARRATIVE: Patient is conscious alert oriented X3 BMI [address] Abdomen nontender nondistended soft no organomegaly guarding or rigidity/no s igns of peritonitis Stable examination with regarding to the partially reducible ventral incisional hernia Urinary Catheter Management^: Lou: Cath Placed During This Visit: yes Urethral Indwelling: Yes Reason for Continuing Indwelling Catheter: Chronic Indwelling Urinary Catheter on Admission Urinary Catheter Date of Insertion: 04/23/19 Urinary Catheter Time of Insertion: 20:30 Data : 04/29/19 04:22 04/29/19 04:22 Micro: Microbiology 04/23/19 11:45 Blood Culture - Final Blood NO GROWTH AFTER 5 DAYS A&P Assessment and plan (1) Small bowel obstruction: Recommend to clamp the NG intermittently each time for 2 hours and declamp for 2 hours. If patient experienced nausea or vomiting re-hook the NG tube to intermittent lowe wall suction As the patient started passing gas that shows some improvement, will continue conservative measures for now Continue IV fluid resuscitation and monitor urine output Correction of electrolytes per hospitalist service I will continue coordinating with Dr. Cui Thank you for consulting general surgery to participate taking care Ms. Gonzales Status: Acute Code(s): K56.609 - Unspecified intestinal obstruction, unspecified as to partial versus complete obstruction Attestations Medical Necessity Statement*: Medical necessity care is expected to cross 2 midnights Time Spent in Patient Care: 16 - 35 minutes (>than 50% of time spent in counselling and/or direct pt care on unit) . Coding Level of Care Code Acute Order Entry Representative for [facility] Fwd Diagnoses Small bowel obstruction K56.299
[2019-04-29 06:31] LABS: Slide Review Slide Review Perform
[2019-04-29] MEDS: sodium chlor 0.45% +KCl 20 mEq 20 MEQ/1,000 ML BAG 100 MEQ IV ×2 (09:27→18:52)
--- NOTE | 2019-04-29 12:00 | PC.RESP ---
Patient does not have a qualifying hx of lung disease at this time.
--- NOTE | 2019-04-29 16:29 | XRR_ITS ---
PROCEDURE INFORMATION: Exam: XR Chest, 1 View Exam date and time: 04/29/2019 5:00 PM Age: 63 years old Clinical indication: Device placement; Ng tube; Additional info: Ng placement TECHNIQUE: Imaging protocol: XR of the chest Views: 1 view. COMPARISON: CR XR chest 1V portable [id number] 04/28/2019 10:09 PM FINDINGS: Tubes, catheters and devices: Nasogastric tube tip at the level of the body of the stomach. Lungs: Poor inspiratory effort. Minimal discoid atelectasis left lung base. Pleural space: Unremarkable. No pleural effusion. No pneumothorax. Heart/Mediastinum: Cardiac structures in configuration stable with mild cardiomegaly. Bones/joints: Unremarkable. Other findings: Age-related findings. Status post cholecystectomy. Heavy body habitus. XR/XR chest 1V portable [id number] IMPRESSION: Nasogastric tube tip at the level of the body of the stomach.
--- NOTE | 2019-04-29 19:17 | PM.PN ---
Subjective Subjective: Interval history: Patient seen and examined, resting quietly in bed, NG tube in place, had no noted drainage earlier today but once advanced has had some output. Going through the process of clamping and unclamping to continue to monitor output. Case discussed earlier with Dr. Valero. Continue n.p.o. status. Positive flatus and noted hypoactive bowel sounds on examination. Per nursing staff, patient inadvertently pulled out NGT at least once overnight. Medications: Reviewed: Yes Medication Review Details: Active Medications Generic Name Dose Route Start Last Admin Trade Name Freq PRN Reason Stop Dose Admin Acetaminophen 650 mg 04/24/19 02:50 04/27/19 11:44 Tylenol PO 650 mg Q6H PRN Administration MILD PAIN Acetaminophen 650 mg 04/29/19 03:25 04/29/19 03:47 Tylenol IN 650 mg Q6H PRN Administration MILD PAIN Albuterol/Ipratrop ium 3 ml 04/23/19 17:54 04/28/19 02:26 Duoneb INHALATION 3 ml Q6H PRN Administration SHORTNESS OF MATTHIEU TH Bisacodyl 10 mg 04/23/19 17:39 Dulcolax PO DAILY PRN CONSTIPATION Chlorpromazine HCl 100 mg 04/25/19 21:00 04/29/19 14:53 Thorazine PO Not Given TID ANTONIO Clonazepam 0.5 mg 04/23/19 21:00 04/29/19 14:53 Klonopin PO Not Given TID ANTONIO Enoxaparin Sodium 30 mg 04/23/19 17:45 04/28/19 20:31 Lovenox SUBCUT 30 mg Q24H ANTONIO Administration Piperacillin Sod/T azobactam 100 mls @ 25 mls/ hr 04/25/19 00:30 04/29/19 18:48 Sod 3.375 gm/ So dium Chloride IV 25 mls/hr Q8H ANTONIO Administration Protocol Potassium Chloride /Sodium Chloride 20 meq in 1,000 m ls @ 100 mls/hr 04/26/19 17:00 04/29/19 18:52 Sodium Chlor 0.4 5% +Kcl 20 Meq IV 100 mls/hr .Q10H ANTONIO Administration Vancomycin HCl 1,0 00 mg/ 250 mls @ 250 mls /hr 04/27/19 11:00 03/16/20 22:13 Sodium Chloride IV 250 mls/hr Q36H ANTONIO Administration Protocol Levetiracetam 500 mg 04/23/19 18:00 04/29/19 18:00 Keppra PO Not Given BID [facility] Metoprolol Succina te 50 mg 04/25/19 18:00 04/29/19 18:00 Toprol Xl PO Not Given BID [facility] Metoprolol Tartrat e 5 mg 04/28/19 20:34 04/28/19 23:03 Metoprolol Tartr ate IV 5 mg Q4H PRN Administration HEART RATE-HIGH Non-Formulary Medi cation 100 mg 04/24/19 09:00 04/29/19 09:23 Amantadine Hcl PO Not Given DAILY [facility] Oxcarbazepine 300 mg 04/23/19 21:00 04/29/19 17:59 Trileptal PO Not Given TID [facility] Phenol 5 spray 04/28/19 20:35 Phenaseptic MUCOUS MEM Q2H PRN SORE THROAT Sodium Phosphate 118 ml 04/23/19 17:52 Fleet Enema IN DAILY PRN Constipation nitrofurantoin [From Macrobid] Allergy (Verified 04/27/19 07:57) ALGY-Rash oseltamivir [From Tamiflu] Allergy (Verified 04/27/19 07:57) ALGY-Hives Vitals/I&O/Wt Last Vital Signs Temp 98.8 F 04/29/19 16:00 Pulse 125 H 04/29/19 16:00 Resp 18 04/29/19 16:00 BP 102/72 04/29/19 16:00 Pulse Ox 94 04/29/19 16:00 04/29/19 04/29/19 04/29/19 06:59 14:59 22:59 Intake Total 100 / 761.667 100 / 100 941.667 / 1041.667 Output Total 300 / 2550 400 / 400 Balance -200 / -1788.333 100 / 100 541.667 / 641.667 Physical Exam Const: COMMON NORMALS: no apparent distress GENERAL APPEARANCE: cooperative, frail appearing and appears older than stated age; not comfortable ORIENTATION/CONSCIOUSNESS: Yes awake HENMT: COMMON NORMALS: normocephalic, head/scalp atraumatic and hearing grossly normal bilaterally HEAD & SCALP: normocephalic and atraumatic NOSE: other (NGT in place) Eye: COMMON NORMALS: PERRL, EOMs intact bilaterally and conjunctivae normal CONJUNCTIVA: Yes conjunctivae normal PUPIL: Yes PERRL Neck/C-Spine: COMMON NORMALS: full ROM GENERAL: Yes normal visual inspection and Yes trachea midline Resp: COMMON NORMALS: normal respiratory effort, no retractions, no use of accessory muscles and clear to auscultation bilaterally EFFORT & INSPECTION: Yes able to speak in complete sentences, Yes symmetric chest movement and Yes tachypneic AUSCULTATION: clear to auscultation bilaterally Cardio: COMMON NORMALS: regular rate, regular rhythm, S1 normal heart sound, S2 normal heart sound and no murmurs RATE: regular rate RHYTHM: regular rhythm HEART SOUNDS: S1 normal and S2 normal GI: COMMON NORMALS: soft to palpation and non-tender INSPECTION: Yes abdominal distension and Yes visible herniation (known ventral hernia, partially reducible) AUSCULTATION: Yes hypoactive bowel sounds PALPATION: Yes soft : BLADDER/KIDNEY EXAM: Yes catheter in place Catheter type (Female): urethral Extremity: COMMON NORMALS: normal to inspection, full ROM and no clubbing, cyanosis or edema; negative for no pedal edema NARRATIVE EXTREMITY EXAM: -contracted LEs Neuro: COMMON NORMALS: moves all extremities, no focal motor deficits and no sensory deficits noted Psych: COMMON NORMALS: thought process normal and cooperative SPEECH: Yes other (speech quite high pitched and somewhat difficult to understand) MOOD & AFFECT: Yes anxious THOUGHT PROCESS: normal thought process Skin: COMMON NORMALS: no rashes or lesions noted, no jaundice, no petechiae and no mottling GENERAL SKIN EXAM: no rashes or lesions noted Urinary Catheter Management^: Lou: Cath Placed During This Visit: yes Urethral Indwelling: Yes Reason for Continuing Indwelling Catheter: Chronic Indwelling Urinary Catheter on Admission Urinary Catheter Date of Insertion: 04/23/19 Urinary Catheter Time of Insertion: 20:30 Data : 04/29/19 04:22 04/29/19 04:22 A&P Assessment and plan (1) Small bowel obstruction: -Noted evidence of small bowel obstruction on imaging -NG tube placed secondary to worsening nausea and vomiting, continue to monitor output, continue n.p.o. status -Pain control and antiemetics as needed -Surgery consult by Dr. Goss appreciated; continue conservative management at this time -continue serial abdominal examinations Status: Acute Code(s): K56.609 - Unspecified intestinal obstruction, unspecified as to partial versus complete obstruction (2) Ventral incisional hernia: -has known chronically incarcerated ventral hernia, partially reducible Status: Acute Code(s): K43.2 - Incisional hernia without obstruction or gangrene (3) Influenza with respiratory manifestation: -found to be influenza B positive; droplet isolation precautions -has allergy to tamiflu -continue to monitor respiratory status; supplemental oxygen as needed Status: Acute Code(s): J11.1 - Influenza due to unidentified influenza virus with other respiratory manifestations Additional A&P Information -Obesity: BMI-32 kg/m2 -Seizure disorder; continue Keppra -Anxiety -hx of EPS, bipolar 1 disorder, depression; continue meds -known cognitive delay -Chronic normocytic anemia; baseline Hg around 11 -DAVID on CKD stage 3; baseline Cr around 1.3; continue to monitor renal function, avoid nephrotoxins, renally dose meds -hx of oropharyngeal dysphagia and with concern for possible aspiration overnight given N/V -Transaminitis, likely secondary to infection, continue to trend LFTs -Leukopenia; WBC wnl -Hypernatremia; continue to monitor Na; switch IVF to D5W, noted free water deficit of 4.2 L -NSTEMI; likely type II given acute infection with associated sepsis -sepsis on admission as evidenced by lactic acidosis (now resolved), fever, tachycardia, tachypnea -DVT ppx with Lovenox -fall precautions -re-orient as needed -Dispo: [facility]; had ERVIN Vargas -Code status: DNR/DNI -guarded prognosis Attestations Medical Necessity Statement*: Patient requires hospitalization for continued management of small bowel obstruction, continues to require NG tube and NPO status. Time Spent in Patient Care: Greater than 35 minutes (>than 50% of time spent in counselling and/or direct pt care on unit). Coding Level of Care Code Acute Carbide Tool Die Maker for Chg Fwd Diagnoses Small bowel obstruction K56.609 Ventral incisional hernia K43.2 Influenza with respiratory manifestation J11.1
[2019-04-29] MEDS: dextrose 5% + KCl 20 mEq 20 MEQ/1,000 ML BAG 100 MEQ IV (20:38)
[2019-04-29] MEDS: enoxaparin 30 mg/0.3 mL Syringe SUBCUT (20:39)
[2019-04-29] MEDS: metoprolol tartrate 1 mg/1 mL SDV 5 mL 5 MG IV (23:49)
[2019-04-30] VITALS (10 sets, daily range): BP systolic 82–129; BP diastolic 58–87; PULSE 107–155; RESP 18–26; TEMP 36.6–37.7; O2SAT 93–97
[2019-04-30] MEDS: piperacillin-tazobactam 3.375 GM in sodium chloride 0.9% (plus) 100 ML IV ×2 (00:32→07:45)
[2019-04-30] MEDS: dextrose 5% + KCl 20 mEq 20 MEQ/1,000 ML BAG 100 MEQ IV ×2 (05:40→17:03)
--- NOTE | 2019-04-30 06:22 | PM.PN ---
Subjective Subjective: Interval history: Patient overall is improving and passing gas and having bowel movements Vitals/I&O/Wt Last Vital Signs Temp 99.8 F H 04/30/19 04:00 Pulse 136 H 04/30/19 04:00 Resp 21 H 04/30/19 04:00 BP 114/74 04/30/19 04:00 Pulse Ox 97 04/30/19 04:00 04/29/19 04/29/19 04/30/19 14:59 22:59 06:59 Intake Total 100 / 100 1221.667 / 1321.667 903.333 / 2225.000 Output Total 775 / 775 100 / 875 Balance 100 / 100 446.667 / 546.667 803.333 / 1350.000 Physical Exam Narrative: EXAM NARRATIVE: Patient is conscious alert oriented X3 BMI 32 Head and neck examination PERRLA no masses no cervical lymphadenopathy no jaundice NG in place Abdomen nontender nondistended soft no organomegaly guarding or rigidity/no signs of peritonitis/partially reducible ventral incisional hernia Urinary Catheter Management^: Lou: Cath Placed During This Visit: yes Urethral Indwelling: Yes Reason for Continuing Indwelling Catheter: Chronic Indwelling Urinary Catheter on Admission Urinary Catheter Date of Insertion: 04/23/19 Urinary Catheter Time of Insertion: 20:30 Data : 04/30/19 05:39 04/30/19 05:39 A&P Assessment and plan (1) Small bowel obstruction: Recommend to clamp the NG intermittently for 2 hours and check residuals if less than 200 mL DC NG tube and start the patient slowly on clear liquid diet with aspiration precautions. Correction of electrolytes per hospitalist service I will continue coordinating with Dr. Cui Thank you for consulting general surgery to participate taking care Ms. Gonzales Status: Acute Code(s): K56.609 - Unspecified intestinal obstruction, unspecified as to partial versus complete obstruction Attestations Medical Necessity Statement*: Medical necessity care is expected to cross 2 midnights Time Spent in Patient Care: 16 - 35 minutes (>than 50% of time spent in counselling and/or direct pt care on unit). Coding Level of Care Code Acute Strike Planning Applications for [facility] Diagnoses Small bowel obstruction K56.609
[2019-04-30 06:46] LABS: Basophils % 0.6 %; Hematocrit 36.6 % (37.0-47.0); Hemoglobin 10.5 g/dL (11.5-15.3); Lymphocytes # 0.6 10^3/uL (0.8-4.8); Lymphocytes % 10.6 %; Mean Corpuscular HGB Conc 28.7 g/dL (30.0-36.0); Mean Corpuscular Hemoglobin 28.6 pg (28.0-34.0); Mean Corpuscular Volume 99.7 fL (81-99); Mean Platelet Volume 11.6 fL (7.4-10.4); Monocytes # 0.3 10^3/uL (0.2-0.9); Monocytes % 5.2 %; Neutrophils # 4.4 10^3/uL (1.8-7.7); Neutrophils % 82.7 %; Nucleated Red Blood Cells % 0 %; Platelet Count 153 10^3/cmm (130-400); Red Blood Count 3.67 10^6/uL (4.1-5.3); Red Cell Distribution Width 16.3 % (12.1-15.1); White Blood Count 5.4 10^3/uL (4.0-10.0)
[2019-04-30 06:59] LABS: Alanine Aminotransferase 147 U/L (0-33); Albumin Level 2.5 g/dL (3.5-5.2); Alkaline Phosphatase 86 IU/L (35-105); Anion Gap 15.7 (5-19); Aspartate Amino Transferase 55 U/L (0-32); Blood Urea Nitrogen 27 mg/dL (8-23); Calcium 8.2 mg/dL (8.5-10.5); Carbon Dioxide 22 mmol/L (22-29); Chloride 114 mmol/L (98-107); Glomerular Filtration Rate 26.5 mL/min (90-130); Glucose 163 mg/dL (65-115); Osmolality Calculated 307 mOsm/kg (285-295); Potassium 3.7 mmol/L (3.5-5.1); Sodium 148 mmol/L (136-145); Total Bilirubin 0.4 mg/dL (0.15-1.2); Total Protein 6.5 g/dL (6.6-8.7)
[2019-04-30 07:20] LABS: Slide Review Slide Review Perform
[2019-04-30] MEDS: CLONazepam 0.5 mg Tablet PO ×3 (07:44→20:25)
[2019-04-30] MEDS: metoprolol succinate ER (24 HR) 50 mg Tablet PO (07:44)
[2019-04-30] MEDS: OXcarbazepine 300 mg Tablet PO ×3 (07:44→20:25)
[2019-04-30] MEDS: levETIRAcetam 500 mg Tablet PO ×2 (07:44→18:04)
[2019-04-30] MEDS: metoprolol tartrate 1 mg/1 mL SDV 5 mL 5 MG IV ×2 (08:38→12:59)
[2019-04-30] MEDS: vancomycin 1,000 MG in sodium chloride 0.9% 250 ML 250 MG IV (11:33)
--- NOTE | 2019-04-30 13:32 | DCPLANNER ---
Phoned the Public Toll Relief Operator's office and talked to Tenisha, she will give the message of the IM to pt's Guardian; Danis Vargas. Copy left in the room as agreed.
[2019-04-30] MEDS: sodium chloride 0.9% 500 ML 999 ML IV (17:03)
[2019-04-30] MEDS: piperacillin-tazobactam 3.375 GM in sodium chloride 0.9% (plus) 50 ML IV (17:03)
--- NOTE | 2019-04-30 20:21 | PM.PN ---
Subjective Subjective: Interval history: Patient seen and examined, resting in bed, has spent most of the day sleeping, NGT discontinued this AM, continues to pass gas, started on CLD. Had loose BM very early this AM. Had episode of hypotension, responded to modest fluid bolus. Had low grade temp overnight, Tmax-99.8 F. Medications: Reviewed: Yes Medication Review Details: Active Medications Generic Name Dose Route Start Last Admin Trade Name Freq PRN Reason Stop Dose Admin Acetaminophen 650 mg 04/24/19 02:50 04/27/19 11:44 Tylenol PO 650 mg Q6H PRN Administration MILD PAIN Acetaminophen 650 mg 04/29/19 03:25 04/29/19 03:47 Tylenol [place] 650 mg Q6H PRN Administration MILD PAIN Albuterol/Ipratrop ium 3 ml 04/23/19 17:54 04/28/19 02:26 Duoneb INHALATION 3 ml Q6H PRN Administration SHORTNESS OF MATTHIEU TH Bisacodyl 10 mg 04/23/19 17:39 Dulcolax PO DAILY PRN CONSTIPATION Chlorpromazine HCl 100 mg 04/25/19 21:00 04/30/19 15:14 Thorazine PO 100 mg TID ANTONIO Administration Clonazepam 0.5 mg 04/23/19 21:00 04/30/19 15:14 Klonopin PO 0.5 mg TID ANTONIO Administration Enoxaparin Sodium 30 mg 04/23/19 17:45 04/29/19 20:39 Lovenox SUBCUT 30 mg Q24H ANTONIO Administration Vancomycin HCl 1,0 00 mg/ 250 mls @ 250 mls /hr 04/27/19 11:00 04/30/19 11:33 Sodium Chloride IV 250 mls/hr Q36H ANTONIO Administration Protocol Potassium Chloride /Dextrose 20 meq in 1,000 m ls @ 100 mls/hr 04/29/19 19:30 04/30/19 17:03 Dextrose 5% + Satnam l 20 Meq IV 100 mls/hr .Q10H ANTONIO Administration Piperacillin Sod/T azobactam 50 mls @ 12.5 mls /hr 04/30/19 16:30 04/30/19 17:03 Sod 3.375 gm/ So dium Chloride IV 12.5 mls/hr Q8H ANTONIO Administration Protocol Levetiracetam 500 mg 04/23/19 18:00 04/30/19 18:04 Keppra PO 500 mg BID ANTONIO Administration Metoprolol Succina te 50 mg 04/25/19 18:00 04/30/19 20:23 Toprol Xl PO Not Given [facility] Metoprolol Tartrat e 5 mg 04/28/19 20:34 04/30/19 12:59 Metoprolol Tartr ate IV 5 mg Q4H PRN Administration HEART RATE-HIGH Non-Formulary Medi cation 100 mg 04/24/19 09:00 04/30/19 07:45 Amantadine Hcl PO Not Given DAILY ANTONIO Oxcarbazepine 300 mg 04/23/19 21:00 04/30/19 15:14 Trileptal PO 300 mg TID ANTONIO Administration Phenol 5 spray 04/28/19 20:35 Phenaseptic MUCOUS MEM Q2H PRN SORE THROAT Sodium Phosphate 118 ml 04/23/19 17:52 Fleet Enema [place] DAILY PRN Constipation nitrofurantoin [From Macrobid] Allergy (Verified 04/27/19 07:57) ALGY-Rash oseltamivir [From Tamiflu] Allergy (Verified 04/27/19 07:57) ALGY-Hives Vitals/I&O/Wt Last Vital Signs Temp 97.8 F 04/30/19 19:14 Pulse 119 H 04/30/19 19:14 Resp 20 H 04/30/19 19:14 BP 91/64 04/30/19 19:14 Pulse Ox 95 04/30/19 19:14 04/30/19 04/30/19 04/30/19 06:59 14:59 22:59 Intake Total 1003.333 / 2325.000 240 / 240 1120 / 1360 Output Total 100 / 875 575 / 575 Balance 903.333 / 1450.000 -335 / -335 1120 / 785 Physical Exam Const: COMMON NORMALS: no apparent distress GENERAL APPEARANCE: cooperative, frail appearing and appears older than stated age; not comfortable HENMT: COMMON NORMALS: normocephalic, head/scalp atraumatic and hearing grossly normal bilaterally HEAD & SCALP: normocephalic and atraumatic Eye: COMMON NORMALS: PERRL, EOMs intact bilaterally and conjunctivae normal CONJUNCTIVA: Yes conjunctivae normal PUPIL: Yes PERRL Neck/C-Spine: COMMON NORMALS: full ROM GENERAL: Yes normal visual inspection and Yes trachea midline Resp: COMMON NORMALS: normal respiratory effort, no retractions, no use of accessory muscles and clear to auscultation bilaterally EFFORT & INSPECTION: Yes able to speak in complete sentences, Yes symmetric chest movement and Yes tachypneic AUSCULTATION: clear to auscultation bilaterally Cardio: COMMON NORMALS: regular rate, regular rhythm, S1 normal heart sound, S2 normal heart sound and no murmurs RATE: regular rate RHYTHM: regular rhythm HEART SOUNDS: S1 normal and S2 normal GI: COMMON NORMALS: soft to palpation and non-tender INSPECTION: Yes abdominal distension and Yes visible herniation (known ventral hernia, partially reducible) AUSCULTATION: Yes hypoactive bowel sounds PALPATION: Yes soft : BLADDER/KIDNEY EXAM: Yes catheter in place Catheter type (Female): urethral Extremity: COMMON NORMALS: normal to inspection, full ROM and no clubbing, cyanosis or edema; negative for no pedal edema NARRATIVE EXTREMITY EXAM: -contracted LEs Neuro: COMMON NORMALS: moves all extremities, no focal motor deficits and no sensory deficits noted Psych: COMMON NORMALS: cooperative Skin: COMMON NORMALS: no rashes or lesions noted, no jaundice, no petechiae and no mottling GENERAL SKIN EXAM: no rashes or lesions noted Urinary Catheter Management^: Lou: Cath Placed During This Visit: yes Urethral Indwelling: Yes Reason for Continuing Indwelling Catheter: Chronic Indwelling Urinary Catheter on Admission Urinary Catheter Date of Insertion: 04/23/19 Urinary Catheter Time of Insertion: 20:30 Data : 04/30/19 05:39 04/30/19 05:39 A&P Assessment and plan (1) Small bowel obstruction: -Noted evidence of small bowel obstruction on imaging -NG tube placed secondary to worsening nausea and vomiting, discontinued this AM, had loose BM earlier this AM, started on CLD, advance as tolerated -Pain control and antiemetics as needed -Surgery consult by Dr. Goss appreciated; continue conservative management at this time -continue serial abdominal examinations Status: Acute Code(s): K56.609 - Unspecified intestinal obstruction, unspecified as to partial versus complete obstruction (2) Ventral incisional hernia: -has known chronically incarcerated ventral hernia, partially reducible Status: Acute Code(s): K43.2 - Incisional hernia without obstruction or gangrene (3) Influenza with respiratory manifestation: -found to be influenza B positive; droplet isolation precautions -has allergy to tamiflu -continue to monitor respiratory status; supplemental oxygen as needed Status: Acute Code(s): J11.1 - Influenza due to unidentified influenza virus with other respiratory manifestations Additional A&P Information -Obesity: BMI-32 kg/m2 -Seizure disorder; continue Keppra -Anxiety -hx of EPS, bipolar 1 disorder, depression; continue meds -known cognitive delay -Chronic normocytic anemia; baseline Hg around 11 -DAVID on CKD stage 3; baseline Cr around 1.3; continue to monitor renal function, avoid nephrotoxins, renally dose meds -hx of oropharyngeal dysphagia and with concern for possible aspiration overnight given N/V -Transaminitis, likely secondary to infection, continue to trend LFTs -Leukopenia; WBC wnl -Hypernatremia; continue to monitor Na; switch IVF to D5W, noted free water deficit of 4.2 L -NSTEMI; likely type II given acute infection with associated sepsis -sepsis on admission as evidenced by lactic acidosis (now resolved), fever, tachycardia, tachypnea -DVT ppx with Lovenox -fall precautions -re-orient as needed -Dispo: [facility], [place]; had DPOA Danis Vargas -Code status: DNR/DNI -guarded prognosis Attestations Medical Necessity Statement*: Patient requires hospitalization for continued management of small bowel obstruction, PO introduced and NGT discontinued today. Time Spent in Patient Care: Greater than 35 minutes (>than 50% of time spent in counselling and/or direct pt care on unit). Coding Level of Care Code Acute Electronic Integrated Systems Mechanic for [facility] Diagnoses Small bowel obstruction K56.609 Ventral incisional hernia K43.2 Influenza with respiratory manifestation J11.1
[2019-04-30] MEDS: enoxaparin 30 mg/0.3 mL Syringe SUBCUT (20:25)
[2019-04-30] MEDS: ipratropium-albuterol 3 mL Neb INHALATION (21:36)
[2019-04-30 22:52] LABS: Vancomycin Trough 35.8 ug/mL (10-15)
--- NOTE | 2019-04-30 23:55 | PC.PHAR ---
Vancomycin trough is 35.8 even though dose has been reduced from 1gm IVPB every 24 hours to 1gm IVPB every 36 hours. We will hold Vancomycin at this time.
[2019-05-01] VITALS (11 sets, daily range): BP systolic 92–108; BP diastolic 65–75; PULSE 109–133; RESP 20–38; TEMP 37.1–37.9; O2SAT 94–97
[2019-05-01] MEDS: piperacillin-tazobactam 3.375 GM in sodium chloride 0.9% (plus) 50 ML IV ×3 (00:32→17:30)
[2019-05-01] MEDS: dextrose 5% + KCl 20 mEq 20 MEQ/1,000 ML BAG 100 MEQ IV ×3 (00:32→17:31)
--- NOTE | 2019-05-01 05:40 | PC.NURSE ---
SHIFT SUMMARY Patient is here with flu B and Pneumonia. NG tube was discontinued yesterday and patient has had no N/V. Tolerating a clear liquid diet well. On 2L O2 chronically. Lou catheter in place and draining good. No bowel movement through the night but is passing gas. At this time patient is resting in bed with eyes closed.
--- NOTE | 2019-05-01 06:46 | PM.PN ---
Subjective Subjective: Interval history: Patient overall looks better Tolerating slowly p.o. intake and having bowel movement and passing gas Vitals/I&O/Wt Last Vital Signs Temp 98.8 F 05/01/19 04:00 Pulse 114 H 05/01/19 04:00 Resp 24 H 05/01/19 04:00 BP 108/75 05/01/19 04:00 Pulse Ox 95 05/01/19 04:00 04/30/19 04/30/19 05/01/19 14:59 22:59 06:59 Intake Total 240 / 240 1200 / 1440 748.333 / 2188.333 Output Total 575 / 575 550 / 1125 Balance -335 / -335 1200 / 865 198.333 / 1063.333 Physical Exam Narrative: EXAM NARRATIVE: Patient is conscious alert oriented X3 BMI 32.4 Head and neck examination PERRLA no masses no cervical lymphadenopathy no jaundice Abdomen nontender nondistended soft no organomegaly guarding or rigidity/no signs of peritonitis/partially reducible ventral incisional hernia Urinary Catheter Management^: Lou: Cath Placed During This Visit: yes Urethral Indwelling: Yes Reason for Continuing Indwelling Catheter: Chronic Indwelling Urinary Catheter on Admission Urinary Catheter Date of Insertion: 04/23/19 Urinary Catheter Time of Insertion: 20:30 Data : 04/30/19 05:39 04/30/19 05:39 A&P Assessment and plan (1) Small bowel obstruction: Advance diet as tolerated Please follow on recommendations per speech pathology Aspiration precautions At some point patient should benefit from elective ventral hernia repair with mesh placement I will continue coordinating with Dr. Cui Thank you for consulting general surgery to participate taking care Ms. Gonzales Status: Resolved Code(s): K56.609 - Unspecified intestinal obstruction, unspecified as to partial versus complete obstruction Attestations Medical Necessity Statement*: Medical necessity care is expected to cross 2 midnights Time Spent in Patient Care: 16 - 35 minutes (>than 50% of time spent in counselling and/or direct pt care on unit). Coding Level of Care Code Acute Supervisor Boarding for [facility] Diagnoses Small bowel obstruction K56.609
[2019-05-01] MEDS: OXcarbazepine 300 mg Tablet PO ×2 (08:38→20:32)
[2019-05-01] MEDS: metoprolol succinate ER (24 HR) 50 mg Tablet PO (08:38)
[2019-05-01] MEDS: ipratropium-albuterol 3 mL Neb INHALATION ×3 (08:38→22:56)
[2019-05-01] MEDS: levETIRAcetam 500 mg Tablet PO (08:38)
[2019-05-01] MEDS: CLONazepam 0.5 mg Tablet PO ×2 (08:38→20:32)
[2019-05-01 08:52] LABS: Anion Gap 16.9 (5-19); Blood Urea Nitrogen 24 mg/dL (8-23); Calcium 7.9 mg/dL (8.5-10.5); Carbon Dioxide 21 mmol/L (22-29); Chloride 111 mmol/L (98-107); Glomerular Filtration Rate 28.2 mL/min (90-130); Glucose 128 mg/dL (65-115); Osmolality Calculated 298 mOsm/kg (285-295); Potassium 3.9 mmol/L (3.5-5.1); Sodium 145 mmol/L (136-145)
--- NOTE | 2019-05-01 14:45 | PM.PN ---
Subjective Subjective: Interval history: Per nursing staff is tolerating CLD, +flatus, no BM overnight. Had 550 mL urine output overnight. Tachycardic, tachypneic and noted low grade temp of 100.1 F, BP stable. On 3 L NC. Patient seen and examined, resting, easily arousable to verbal and tactile stimulation, has had minimal oral intake today, sounds coarse and is wheezing on auscultation. Called [facility] and spoke with her nurse to determine how her oral intake is at the long-term, patient is typically on a regular diet, typically pur?ed inconsistency, usually feeds herself, is bedbound for the most part, usually alert and able to converse with simple sentences. Repeat CXR unchanged. Medications: Reviewed: Yes Medication Review Details: Active Medications Generic Name Dose Route Start Last Admin Trade Name Freq PRN Reason Stop Dose Admin Acetaminophen 650 mg 04/24/19 02:50 04/27/19 11:44 Tylenol PO 650 mg Q6H PRN Administration MILD PAIN Acetaminophen 650 mg 04/29/19 03:25 04/29/19 03:47 Tylenol [place] 650 mg Q6H PRN Administration MILD PAIN Albuterol/Ipratrop ium 3 ml 04/23/19 17:54 05/01/19 14:10 Duoneb INHALATION 3 ml Q6H PRN Administration SHORTNESS OF MATTHIEU TH Bisacodyl 10 mg 04/23/19 17:39 Dulcolax PO DAILY PRN CONSTIPATION Chlorpromazine HCl 100 mg 04/25/19 21:00 05/01/19 08:38 Thorazine PO 100 mg TID ANTONIO Administration Clonazepam 0.5 mg 04/23/19 21:00 05/01/19 08:38 Klonopin PO 0.5 mg TID ANTONIO Administration Enoxaparin Sodium 30 mg 04/23/19 17:45 04/30/19 20:25 Lovenox SUBCUT 30 mg Q24H ANTONIO Administration Potassium Chloride /Dextrose 20 meq in 1,000 m ls @ 125 mls/hr 04/29/19 19:30 05/01/19 11:56 Dextrose 5% + Satnam l 20 Meq IV 100 mls/hr .Q8H ANTONIO Infusion Piperacillin Sod/T azobactam 50 mls @ 12.5 mls /hr 04/30/19 16:30 05/01/19 08:38 Sod 3.375 gm/ So dium Chloride IV 12.5 mls/hr Q8H ANTONIO Administration Protocol Levetiracetam 500 mg 04/23/19 18:00 05/01/19 08:38 Keppra PO 500 mg BID ANTONIO Administration Metoprolol Succina te 50 mg 04/25/19 18:00 05/01/19 08:38 Toprol Xl PO 50 mg BID ANTONIO Administration Metoprolol Tartrat e 5 mg 04/28/19 20:34 04/30/19 12:59 Metoprolol Tartr ate IV 5 mg Q4H PRN Administration HEART RATE-HIGH Non-Formulary Medi cation 100 mg 04/24/19 09:00 05/01/19 08:41 Amantadine Hcl PO Not Given DAILY [facility] Oxcarbazepine 300 mg 04/23/19 21:00 05/01/19 08:38 Trileptal PO 300 mg TID ANTONIO Administration Phenol 5 spray 04/28/19 20:35 Phenaseptic MUCOUS MEM Q2H PRN SORE THROAT Sodium Phosphate 118 ml 04/23/19 17:52 Fleet Enema [place] DAILY PRN Constipation nitrofurantoin [From Macrobid] Allergy (Verified 04/27/19 07:57) ALGY-Rash oseltamivir [From Tamiflu] Allergy (Verified 04/27/19 07:57) ALGY-Hives Vitals/I&O/Wt Last Vital Signs Temp 100.1 F H 05/01/19 11:55 Pulse 116 H 05/01/19 14:13 Resp 24 H 05/01/19 14:08 BP 95/66 05/01/19 11:55 Pulse Ox 97 05/01/19 14:08 04/30/19 05/01/19 05/01/19 22:59 06:59 14:59 Intake Total 1200 / 1440 798.333 / 2238.333 1140.000 / 1140.000 Output Total 550 / 1125 300 / 300 Balance 1200 / 865 248.333 / 1113.333 840.000 / 840.000 Physical Exam Const: COMMON NORMALS: no apparent distress GENERAL APPEARANCE: cooperative, frail appearing and appears older than stated age; not comfortable ORIENTATION/CONSCIOUSNESS: Yes awake HENMT: COMMON NORMALS: normocephalic, head/scalp atraumatic and hearing grossly normal bilaterally HEAD & SCALP: normocephalic and atraumatic NOSE: other (NGT in place) Eye: COMMON NORMALS: PERRL, EOMs intact bilaterally and conjunctivae normal CONJUNCTIVA: Yes conjunctivae normal PUPIL: Yes PERRL Neck/C-Spine: COMMON NORMALS: full ROM GENERAL: Yes normal visual inspection and Yes trachea midline Resp: COMMON NORMALS: normal respiratory effort, no retractions and no use of accessory muscles EFFORT & INSPECTION: Yes able to speak in complete sentences, Yes symmetric chest movement and Yes tachypneic AUSCULTATION: rhonchi and wheezes Cardio: COMMON NORMALS: regular rate, regular rhythm, S1 normal heart sound, S2 normal heart sound and no murmurs RATE: regular rate RHYTHM: regular rhythm HEART SOUNDS: S1 normal and S2 normal GI: COMMON NORMALS: soft to palpation and non-tender INSPECTION: Yes abdominal distension and Yes visible herniation (known ventral hernia, partially reducible) AUSCULTATION: Yes hypoactive bowel sounds PALPATION: Yes soft and No tender : BLADDER/KIDNEY EXAM: Yes catheter in place Catheter type (Female): urethral Extremity: COMMON NORMALS: normal to inspection, full ROM and no clubbing, cyanosis or edema; negative for no pedal edema NARRATIVE EXTREMITY EXAM: -contracted LEs GENERAL: Yes edema (non-pitting edema around bilateral ankles) Neuro: COMMON NORMALS: moves all extremities, no focal motor deficits and no sensory deficits noted OTHER: -baseline cognitive delay Psych: COMMON NORMALS: cooperative SPEECH: Yes other (speech quite high pitched and somewhat difficult to understand) MOOD & AFFECT: Yes anxious Skin: COMMON NORMALS: no rashes or lesions noted, no jaundice, no petechiae and no mottling GENERAL SKIN EXAM: no rashes or lesions noted Urinary Catheter Management^: Lou: Cath Placed During This Visit: yes Urethral Indwelling: Yes Reason for Continuing Indwelling Catheter: Chronic Indwelling Urinary Catheter on Admission Urinary Catheter Date of Insertion: 04/23/19 Urinary Catheter Time of Insertion: 20:30 Data : 04/30/19 05:39 05/01/19 04:34 Micro: Microbiology 04/23/19 11:40 Blood Culture - Final Blood Corynebacterium species A&P Assessment and plan (1) Small bowel obstruction: -Noted evidence of small bowel obstruction on imaging -NG tube discontinued this AM, last BM on 04/29, on dysphagia diet though has bad minimal oral intake -Pain control and antiemetics as needed -Surgery consult by Dr. Goss appreciated; continue conservative management at this time -continue serial abdominal examinations -repeat CXR today unchanged. Status: Resolved Code(s): K56.609 - Unspecified intestinal obstruction, unspecified as to partial versus complete obstruction (2) Ventral incisional hernia: -has known chronically incarcerated ventral hernia, partially reducible Status: Acute Code(s): K43.2 - Incisional hernia without obstruction or gangrene (3) Influenza with respiratory manifestation: -found to be influenza B positive; droplet isolation precautions -has allergy to tamiflu -continue to monitor respiratory status; supplemental oxygen as needed Status: Acute Code(s): J11.1 - Influenza due to unidentified influenza virus with other respiratory manifestations Additional A&P Information -Obesity: BMI-32 kg/m2 -Seizure disorder; continue Keppra -Anxiety -hx of EPS, bipolar 1 disorder, depression; continue meds -known cognitive delay -Chronic normocytic anemia; baseline Hg around 11 -DAVID on CKD stage 3; baseline Cr around 1.3; continue to monitor renal function, gradually improving, avoid nephrotoxins, renally dose meds -hx of oropharyngeal dysphagia and with concern for possible aspiration overnight given N/V -Transaminitis, likely secondary to infection, improving continue to trend LFTs -Leukopenia resolved; WBC wnl -Hypernatremia resolved -NSTEMI; likely type II given acute infection with associated sepsis -sepsis on admission as evidenced by lactic acidosis (now resolved), fever, tachycardia, tachypnea -DVT ppx with Lovenox -fall precautions -re-orient as needed -Dispo: [facility]; had DPOA Danis Vargas -Code status: DNR/DNI -guarded prognosis Attestations Medical Necessity Statement*: Patient requires hospitalization for continued management of small bowel obstruction, pending improved oral tolerance. Time Spent in Patient Care: 16 - 35 minutes (>than 50% of time spent in counselling and/or direct pt care on unit). 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 Fwd Exam Comprehensive Diagnoses Small bowel obstruction K56.609 Ventral incisional hernia K43.2 Influenza with respiratory manifestation J11.1
--- NOTE | 2019-05-01 15:27 | XR_ITS ---
WS: [id number] XR chest 1V portable [id number] REASON FOR EXAM: lethargy, aspiration FINDINGS: The lung nj are hypoaerated. There is no definite pneumonia are pulmonary edema, no evidence of pleural effusion. The heart is normal. XR/XR chest 1V portable [id number] IMPRESSION: Hypoaerated lungs. Similar to previous exam exposed April 29, 2019.
[2019-05-01] MEDS: metroNIDAZOLE IV 500 MG/100 ML PREMIX 100 MG IV ×2 (15:44→23:17)
[2019-05-01] MEDS: FUROsemide 10 mg/mL SDV 2mL 20 MG IVP (16:28)
[2019-05-01] MEDS: metoprolol tartrate 1 mg/1 mL SDV 5 mL 5 MG IV (20:32)
[2019-05-01] MEDS: enoxaparin 30 mg/0.3 mL Syringe SUBCUT (20:46)
[2019-05-01] MEDS: acetaminophen 325 mg Tablet 650 MG PO (20:46)
[2019-05-02] VITALS (7 sets, daily range): BP systolic 87–114; BP diastolic 55–77; PULSE 101–128; RESP 18–24; TEMP 36.5–38.4; O2SAT 95–97
--- NOTE | 2019-05-02 00:28 | PC.NURSE ---
Pt refused BP
[2019-05-02] MEDS: dextrose 5% + KCl 20 mEq 20 MEQ/1,000 ML BAG 100 MEQ IV (00:40)
[2019-05-02] MEDS: piperacillin-tazobactam 3.375 GM in sodium chloride 0.9% (plus) 50 ML IV ×3 (00:40→20:48)
[2019-05-02 05:55] LABS: Basophils % 0.2 %; Hematocrit 31.3 % (37.0-47.0); Hemoglobin 9.7 g/dL (11.5-15.3); Lymphocytes # 0.7 10^3/uL (0.8-4.8); Lymphocytes % 12.1 %; Mean Corpuscular Volume 93.7 fL (81-99); Mean Platelet Volume 11.2 fL (7.4-10.4); Monocytes # 0.7 10^3/uL (0.2-0.9); Monocytes % 11.6 %; Neutrophils # 4.4 10^3/uL (1.8-7.7); Neutrophils % 75.1 %; Nucleated Red Blood Cells % 0 %; Platelet Count 150 10^3/cmm (130-400); Red Blood Count 3.34 10^6/uL (4.1-5.3); Red Cell Distribution Width 16.4 % (12.1-15.1); White Blood Count 5.8 10^3/uL (4.0-10.0)
[2019-05-02 06:15] LABS: Blood Urea Nitrogen 21 mg/dL (8-23); Calcium 7.6 mg/dL (8.5-10.5); Carbon Dioxide 20 mmol/L (22-29); Glucose 104 mg/dL (65-115)
[2019-05-02 06:38] LABS: Anion Gap 19.9 (5-19); Chloride 107 mmol/L (98-107); Osmolality Calculated 293 mOsm/kg (285-295); Potassium 3.9 mmol/L (3.5-5.1); Sodium 143 mmol/L (136-145)
[2019-05-02 07:08] LABS: Slide Review Slide Review Perform
[2019-05-02] MEDS: metoprolol succinate ER (24 HR) 50 mg Tablet PO ×2 (08:05→18:32)
[2019-05-02] MEDS: metroNIDAZOLE IV 500 MG/100 ML PREMIX 100 MG IV ×2 (08:05→16:17)
[2019-05-02] MEDS: levETIRAcetam 500 mg Tablet PO ×2 (08:05→18:32)
[2019-05-02] MEDS: CLONazepam 0.5 mg Tablet PO ×3 (08:05→22:07)
--- NOTE | 2019-05-02 09:37 | P.PN_ITS ---
Subjective Subjective: Interval history: Febrile this AM, temp of 101.2 F, will repeat UA and blood culture. Continues to be tachycardic and tachypneic. Had copious BM overnight. Had 1200 mL urine output overnight. AM labs noted, slight worsening in renal function. Patient seen and examined, sounds very congested, IVF stopped. Had green liquid BM, helped nursing staff clean her up. Noted excor iation and small areas of superficial breakdown on her bilateral gluteal area, inguinal intertrigo. On 3 L NC. Arousable to verbal and tactile stimulation, able to take PO meds in applesauce but otherwise minimal oral intake. Medications: Reviewed: Yes Medication Review Details: Active Medications Generic Name Dose Route Start Last Admin Trade Name Freq PRN Reason Stop Dose Admin Acetaminophen 650 mg 04/24/19 02:50 05/01/19 20:46 Tylenol PO 650 mg Q6H PRN Administration MILD PAIN Acetaminophen 650 mg 04/29/19 03:25 04/29/19 03:47 Tylenol TN 650 mg Q6H PRN Administration MILD PAIN Albuterol/Ipratrop ium 3 ml 04/23/19 17:54 05/01/19 22:56 Duoneb INHALATION 3 ml Q6H PRN Administration SHORTNESS OF MATTHIEU TH Bisacodyl 10 mg 04/23/19 17:39 Dulcolax PO DAILY PRN CONSTIPATION Chlorpromazine HCl 100 mg 04/25/19 21:00 05/02/19 08:05 Thorazine PO 100 mg TID ANTONIO Administration Clonazepam 0.5 mg 04/23/19 21:00 05/02/19 08:05 Klonopin PO 0.5 mg TID ANTONIO Administration Enoxaparin Sodium 30 mg 04/23/19 17:45 05/01/19 20:46 Lovenox SUBCUT 30 mg Q24H ANTONIO Administration Potassium Chloride /Dextrose 20 meq in 1,000 m ls @ 125 mls/hr 04/29/19 19:30 05/02/19 00:40 Dextrose 5% + Satnam l 20 Meq IV 100 mls/hr .Q8H ANTONIO Administration Piperacillin Sod/T azobactam 50 mls @ 12.5 mls /hr 04/30/19 16:30 05/02/19 00:40 Sod 3.375 gm/ So dium Chloride IV 12.5 mls/hr Q8H ANTONIO Administration Protocol Metronidazole 500 mg in 100 mls @ 100 mls/hr 05/01/19 16:00 05/02/19 08:05 Flagyl Iv IV 100 mls/hr Q8H ANTONIO Administration Protocol Levetiracetam 500 mg 04/23/19 18:00 05/02/19 08:05 Keppra PO 500 mg BID ANTONIO Administration Metoprolol Succina te 50 mg 04/25/19 18:00 05/02/19 08:05 Toprol Xl PO 50 mg BID ANTONIO Administration Metoprolol Tartrat e 5 mg 04/28/19 20:34 05/01/19 20:32 Metoprolol Tartr ate IV 5 mg Q4H PRN Administration HEART RATE-HIGH Non-Formulary Medi cation 100 mg 04/24/19 09:00 05/02/19 07:39 Amantadine Hcl PO Not Given DAILY ANTONIO Oxcarbazepine 300 mg 04/23/19 21:00 05/01/19 20:32 Trileptal PO 300 mg TID ANTONIO Administration Phenol 5 spray 04/28/19 20:35 Phenaseptic MUCOUS MEM Q2H PRN SORE THROAT Sodium Phosphate 118 ml 04/23/19 17:52 Fleet Enema TN DAILY PRN Constipation nitrofurantoin [From Macrobid] Allergy (Verified 04/27/19 07:57) ALGY-Rash oseltamivir [From Tamiflu] Allergy (Verified 04/27/19 07:57) ALGY-Hives Vitals/I&O/Wt Last Vital Signs Temp 101.2 F H 05/02/19 07:46 Pulse 128 H 05/02/19 07:46 Resp 22 H 05/02/19 07:46 BP 101/57 05/02/19 07:46 Pulse Ox 97 05/02/19 07:46 05/01/19 05/02/19 05/02/19 22:59 06:59 14:59 Intake Total 708.333 / 1898.333 815 / 2713.333 Output Total 950 / 1250 500 / 1750 Balance -241.667 / 648.333 315 / 963.333 Physical Exam Const: COMMON NORMALS: no apparent distress GENERAL APPEARANCE: cooperative, frail appearing and appears older than stated age; not comfortable ORIENTATION/CONSCIOUSNESS: Yes awake HENMT: COMMON NORMALS: normocephalic, head/scalp atraumatic and hearing grossly normal bilaterally HEAD & SCALP: normocephalic and atraumatic NOSE: other (NGT in place) Eye: COMMON NORMALS: PERRL, EOMs intact bilaterally and conjunctivae normal CONJUNCTIVA: Yes conjunctivae normal PUPIL: Yes PERRL Neck/C-Spine: COMMON NORMALS: full ROM GENERAL: Yes normal visual inspection and Yes trachea midline Resp: COMMON NORMALS: normal respiratory effort, no retractions and no use of accessory muscles EFFORT & INSPECTION: Yes able to speak in complete sentence s, Yes symmetric chest movement and Yes tachypneic AUSCULTATION: crackles OTHER: -coarse breath sounds, on 3 L NC Cardio: COMMON NORMALS: regular rate, regular rhythm, S1 normal heart sound, S2 normal heart sound and no murmurs RATE: regular rate RHYTHM: regular rhythm HEART SOUNDS: S1 normal and S2 normal GI: COMMON NORMALS: soft to palpation and non-tender INSPECTION: Yes abdominal distension and Yes visible herniation (known ventral hernia, partially reducible) AUSCULTATION: Yes hypoactive bowel sounds PALPATION: Yes soft and No tender : BLADDER/KIDNEY EXAM: Yes catheter in place Catheter type (Female): urethral Extremity: COMMON NORMALS: normal to inspection, full ROM and no clubbing, cyanosis or edema; negative for no pedal edema NARRATIVE EXTREMITY EXAM: -contracted LEs GENERAL: Yes edema (non-pitting edema around bilateral ankles) Neuro: COMMON NORMALS: moves all extremities, no focal motor deficits and no sensory deficits noted OTHER: -baseline cognitive delay Psych: COMMON NORMALS: cooperative SPEECH: Yes other (speech quite high pitched and somewhat difficult to understand) MOOD & AFFECT: Yes anxious Skin: COMMON NORMALS: no rashes or lesions noted, no jaundice, no petechiae and no mottling GENERAL SKIN EXAM: no rashes or lesions noted OTHER: - inguinal intertrigo bilaterally, noted diffuse erythematous excoriation on bilateral gluteal area with discrete areas of superficial breakdown and erythema Urinary Catheter Management^: Lou: Cath Placed During This Visit: yes Urethral Indwelling: Yes Reason for Continuing Indwelling Catheter: Chronic Indwelling Urinary Catheter on Admission Urinary Catheter Date of Insertion: 04/23/19 Urinary Catheter Time of Insertion: 20:30 Data : 05/02/19 05:19 05/02/19 05:19 Micro: Microbiology 04/23/19 11:40 Blood Culture - Final Blood Corynebacterium species A&P Assessment and plan (1) Small bowel obstruction: -Noted evidence of small bowel obstruction on imaging -NG tube discontinued this AM, last BM on 04/29, on dysphagia diet though has bad minimal oral intake -Pain control and antiemetics as needed -Surgery consult by Dr. Goss appreciated; continue conservative management at this time -continue serial abdominal examinations; repeat KUB today -repeat CXR (04/30) unchanged. Status: Resolved Code(s): K56.609 - Unspecified intestinal obstruction, unspecified as to partial versus complete obstruction (2) Ventral incisional hernia: -has known chronically incarcerated ventral hernia, partially reducible Status: Acute Code(s): K43.2 - Incisional hernia without obstruction or gangrene (3) Influenza with respiratory manifestation: -found to be influenza B positive; droplet isolation precautions -has allergy to tamiflu -continue to monitor respiratory status; supplemental oxygen as needed Status: Acute Code(s): J11.1 - Influenza due to unidentified influenza virus with other respiratory manifestations Additional A&P Information -Obesity: BMI-32 kg/m2 -Seizure disorder; continue Keppra -Anxiety -hx of EPS, bipolar 1 disorder, depression; continue meds -known cognitive delay -Chronic normocytic anemia; baseline Hg around 11 -DAVID on CKD stage 3; baseline Cr around 1.3; continue to monitor renal function, gradually improving, avoid nephrotoxins, renally dose meds -hx of oropharyngeal dysphagia and with concern for possible aspiration overnight given N/V -Transaminitis, likely secondary to infection, improving continue to trend LFTs -Leukopenia resolved; WBC wnl -Hypernatremia resolved -NSTEMI; likely type II given acute infection with associated sepsis -sepsis on admission as evidenced by lactic acidosis (now resolved), fever, tachycardia, tachypnea -intertrigo, excoriation of bilateral gluteal area; frequent repositioning (q2h), keep skin clean and dry, nystatin powder. With increased breakdown, s uspect this is contributing to her fever, tachycardia -at least moderate protein calorie malnutrition, contributing to bilateral LE edema, has had poor oral intake and this will diminish capacity for recovery; hypoalbuminemia. Add Ensure to meals -has not been able to consistently take her oral meds which is likely contributing to tachycardia and AMS -DVT ppx with Lovenox -fall precautions -re-orient as needed -Dispo: [facility]; had DPOA Danis Vargas -Code status: DNR/DNI -guarded prognosis Attestations Medical Necessity Statement*: Patient requires hospitalization for continued management of small bowel obstruction, pending improved oral intake. Time Spent in Patient Care: Greater than 35 minutes (>than 50% of time spent in counselling and/or direct pt care on unit) . Coding Level of Care Code Acute Human Resources Director for Chg Fwd Diagnoses Small bowel obstruction K56.609 Ventral incisional hernia K43.2 Influenza with respiratory manifestation J11.1
--- NOTE | 2019-05-02 09:39 | XR_ITS ---
WS: [id number] XR KUB portable [id number] REASON FOR EXAM: abdominal pain, fever, recent SBO FINDINGS: The obstructive pattern noted on April 28, 2019 is improved. Residual small amount of gas i s seen but no obstruction pattern no layering affect. There was no free air in the abdomen. XR/XR KUB portable [id number] IMPRESSION: Resolved small bowel obstruction.
--- NOTE | 2019-05-02 10:37 | PC.RESP ---
Patient does not have a qualifying hx of lung disease at this time.
[2019-05-02] MEDS: OXcarbazepine 300 mg Tablet PO ×3 (10:38→22:07)
[2019-05-02 11:36] LABS: Add Urine Microscopic? YES; Bilirubin Urine Neg (NEGATIVE); Blood Urine 3+ (Negative); Glucose Urine UA Norm (Normal); Ketones Urine Negative (Negative); Leukocyte Esterase Urine Negative (Negative); Nitrate Urine Negative (Negative); Protein Urine 1+ (Negative); Urine Appearance Hazy (CLEAR); Urine Color Yellow (Yellow); Urobilinogen Urine Norm (Negative); pH Urine 5 (5-7)
[2019-05-02 11:44] LABS: RBC Urine 50-80 /hpf (0-2)
[2019-05-02 11:45] LABS: Add Urine Culture? Yes; Amorphous Sediment Urine 1+; Bacteria Urine TRACE; Squamous Epithelial Cell Urine 0-4 (0-5)
--- NOTE | 2019-05-02 14:09 | DCPLANNER ---
pg 2 of IM updated and attempted review with pt. Copy left in the room, we will remind pt's Guardian of the opportunity before pt is d/c'd back to [facility], [place].
[2019-05-02] MEDS: nystatin powder 15 gm Btl 1 APPLIC TOPICAL (20:00)
[2019-05-02] MEDS: enoxaparin 30 mg/0.3 mL Syringe SUBCUT (20:46)
[2019-05-02] MEDS: metoprolol tartrate 1 mg/1 mL SDV 5 mL 5 MG IV (22:27)
[2019-05-03] VITALS (11 sets, daily range): BP systolic 87–138; BP diastolic 55–74; PULSE 64–117; RESP 18–26; TEMP 37–37.3; O2SAT 93–97
[2019-05-03] MEDS: metroNIDAZOLE IV 500 MG/100 ML PREMIX 100 MG IV ×3 (01:25→17:58)
[2019-05-03] MEDS: piperacillin-tazobactam 3.375 GM in sodium chloride 0.9% (plus) 50 ML IV ×3 (04:26→21:09)
[2019-05-03 05:51] LABS: Ammonia 32 umol/L (11-51)
[2019-05-03 06:50] LABS: Anion Gap 14.7 (5-19); Blood Urea Nitrogen 21 mg/dL (8-23); Calcium 7.6 mg/dL (8.5-10.5); Carbon Dioxide 22 mmol/L (22-29); Chloride 111 mmol/L (98-107); Glomerular Filtration Rate 22.4 mL/min (90-130); Glucose 88 mg/dL (65-115); Osmolality Calculated 294 mOsm/kg (285-295); Potassium 3.7 mmol/L (3.5-5.1); Sodium 144 mmol/L (136-145)
[2019-05-03] MEDS: OXcarbazepine 300 mg Tablet PO ×2 (09:53→15:24)
[2019-05-03] MEDS: metoprolol succinate ER (24 HR) 50 mg Tablet PO ×2 (09:53→17:59)
[2019-05-03] MEDS: CLONazepam 0.5 mg Tablet PO ×2 (09:53→15:24)
[2019-05-03] MEDS: levETIRAcetam 500 mg Tablet PO ×2 (09:53→17:59)
[2019-05-03] MEDS: nystatin powder 15 gm Btl 1 APPLIC TOPICAL ×2 (09:58→18:06)
[2019-05-03] MEDS: acetaminophen 325 mg Tablet 650 MG PO (15:32)
--- NOTE | 2019-05-03 15:39 | P.PN_ITS ---
Subjective Subjective: Interval history: AM labs noted, poor oral intake continues. She is more alert today, had 275 mL urine output overnight. Continues to have green liquid BMs. BP more stable, last temp was yesterday afternoon. Has been afebrile since. Was able to take PO meds today. Medications: Reviewed: Yes Medication Review Details: Active Medications Generic Name Dose Route Start Last Admin Trade Name Freq PRN Reason Stop Dose Admin Acetaminophen 650 mg 04/24/19 02:50 05/03/19 15:32 Tylenol PO 650 mg Q6H PRN Administration MILD PAIN Acetaminophen 650 mg 04/29/19 03:25 04/29/19 03:47 Tylenol [place] 650 mg Q6H PRN Administration MILD PAIN Albuterol/Ipratrop ium 3 ml 04/23/19 17:54 05/01/19 22:56 Duoneb INHALATION 3 ml Q6H PRN Administration SHORTNESS OF MATTHIEU TH Bisacodyl 10 mg 04/23/19 17:39 Dulcolax PO DAILY PRN CONSTIPATION Chlorpromazine HCl 100 mg 04/25/19 21:00 05/03/19 15:24 Thorazine PO 100 mg TID ANTONIO Administration Clonazepam 0.5 mg 04/23/19 21:00 05/03/19 15:24 Klonopin PO 0.5 mg TID ANTONIO Administration Enoxaparin Sodium 30 mg 04/23/19 17:45 05/02/19 20:46 Lovenox SUBCUT 30 mg Q24H ANTONIO Administration Furosemide 40 mg 05/03/19 15:40 Lasix IVP 05/03/19 15:41 ONCE ONE Piperacillin Sod/T azobactam 50 mls @ 12.5 mls /hr 04/30/19 16:30 05/03/19 12:29 Sod 3.375 gm/ So dium Chloride IV 12.5 mls/hr Q8H ANTONIO Administration Protocol Metronidazole 500 mg in 100 mls @ 100 mls/hr 05/01/19 16:00 05/03/19 09:51 Flagyl Iv IV 100 mls/hr Q8H ANTONIO Administration Protocol Levetiracetam 500 mg 04/23/19 18:00 05/03/19 09:53 Keppra PO 500 mg BID ANTONIO Administration Lorazepam 1 mg 05/03/19 15:24 Ativan IVP Q4H PRN ANXIETY Metoprolol Succina te 50 mg 04/25/19 18:00 05/03/19 09:53 Toprol Xl PO 50 mg BID ANTONIO Administration Metoprolol Tartrat e 5 mg 04/28/19 20:34 05/02/19 22:27 Metoprolol Tartr ate IV 5 mg Q4H PRN Administration HEART RATE-HIGH Non-Formulary Medi cation 100 mg 04/24/19 09:00 05/03/19 09:50 Amantadine Hcl PO Not Given DAILY ANTONIO Nystatin 1 applic 05/02/19 18:00 05/03/19 09:58 Nystatin Powder TOPICAL 1 applic BID ANTONIO Administration Oxcarbazepine 300 mg 04/23/19 21:00 05/03/19 15:24 Trileptal PO 300 mg TID ANTONIO Administration Phenol 5 spray 04/28/19 20:35 Phenaseptic MUCOUS MEM Q2H PRN SORE THROAT Sodium Phosphate 118 ml 04/23/19 17:52 Fleet Enema FL DAILY PRN Constipation nitrofurantoin [From Macrobid] Allergy (Verified 04/27/19 07:57) ALGY-Rash oseltamivir [From Tamiflu] Allergy (Verified 04/27/19 07:57) ALGY-Hives Vitals/I&O/Wt Last Vital Signs Temp 99.0 F 05/03/19 11:24 Pulse 89 05/03/19 11:24 Resp 24 H 05/03/19 11:24 BP 132/68 05/03/19 11:24 Pulse Ox 96 05/03/19 11:24 05/03/19 05/03/19 05/03/19 06:59 14:59 22:59 Intake Total 150 / 1413.333 50 / 50 Output Total 275 / 825 Balance -125 / 588.333 50 50 Physical Exam Const: COMMON NORMALS: no apparent distress GENERAL APPEARANCE: cooperative, frail appearing and appears older than stated age; not comfortable ORIENTATION/CONSCIOUSNESS: Yes awake HENMT: COMMON NORMALS: normocephalic, head/scalp atraumatic and hearing grossly normal bilaterally HEAD & SCALP: normocephalic and atraumatic NOSE: other (NGT in place) Eye: COMMON NORMALS: PERRL, EOMs intact bilaterally and conjunctivae normal CONJUNCTIVA: Yes conjunctivae normal PUPIL: Yes PERRL Neck/C-Spine: COMMON NORMALS: full ROM GENERAL: Yes normal visual inspection and Yes trachea midline Resp: COMMON NORMALS: normal respiratory effort, no retractions and no use of accessory muscles EFFORT & INSPECTION: Yes able to speak in complete sentences, Yes symmetric chest movement and Yes tachypneic AUSCULTATION: crackles OTHER: -coarse breath sounds, on 3 L NC Cardio: COMMON NORMALS: regular rate, regular rhythm, S1 normal heart sound, S2 normal heart sound and no murmurs RATE: regular rate RHYTHM: regular rhythm HEART SOUNDS: S1 normal and S2 normal GI: COMMON NORMALS: soft to palpation and non-tender INSPECTION: Yes abdominal distension and Yes visible herniation (known ventral hernia, partially reducible) AUSCULTATION: Yes hypoactive bowel sounds PALPATION: Yes soft and No tender : BLADDER/KIDNEY EXAM: Yes catheter in place Catheter type (Female): urethral Extremity: COMMON NORMALS: normal to inspection, full ROM and no clubbing, cyanosis or edema; negative for no pedal edema NARRATIVE EXTREMITY EXAM: -contracted LEs GENERAL: Yes edema (non-pitting edema around bilateral ankles) Neuro: COMMON NORMALS: moves all extremities, no focal motor deficits and no sensory deficits noted OTHER: -baseline cognitive delay Psych: COMMON NORMALS: cooperative SPEECH: Yes other (speech quite high pitched and somewhat difficult to understand) MOOD & AFFECT: Yes anxious Skin: COMMON NORMALS: no rashes or lesions noted, no jaundice, no petechiae and no mottling GENERAL SKIN EXAM: no rashes or lesions noted OTHER: - inguinal intertrigo bilaterally, noted diffuse erythematous excoriation on bilateral gluteal area with discrete areas of superficial breakdown and erythema Urinary Catheter Management^: Lou: Cath Placed During This Visit: yes Urethral Indwelling: Yes Reason for Continuing Indwelling Catheter: Chronic Indwelling Urinary Catheter on Admission Urinary Catheter Date of Insertion: 04/23/19 Urinary Catheter Time of Insertion: 20:30 Data : 05/02/19 05:19 05/03/19 05:29 Micro: Microbiology 05/02/19 10:28 Blood Culture - Preliminary Blood NEGATIVE TO DATE 05/02/19 10:31 Blood Culture - Preliminary Blood NEGATIVE TO DATE A&P Assessment and plan (1) Small bowel obstruction: -Noted evidence of small bowel obstruction on initial imaging; now resolved -NG tube discontinued this AM, last BM on 04/29, on dysphagia diet though has bad minimal oral intake -Pain control and antiemetics as needed -Surgery consult by Dr. Goss appreciated; continue conservative management at this time -continue serial abdominal examinations; repeat KUB (05/01) shows resolution of SBO -repeat CXR (04/30) unchanged. Status: Resolved Code(s): K56.609 - Unspecified intestinal obstruction, unspecified as to partial versus complete obstruction (2) Ventral incisional hernia: -has known chronically incarcerated ventral hernia, partially reducible Status: Acute Code(s): K43.2 - Incisional hernia without obstruction or gangrene (3) Influenza with respiratory manifestation: -found to be influenza B positive; droplet isolation precautions -has allergy to tamiflu -continue to monitor respiratory status; supplemental oxygen as needed Status: Acute Code(s): J11.1 - Influenza due to unidentified influenza virus with other respiratory manifestations Additional A&P Information -Obesity: BMI-32 kg/m2 -Seizure disorder; continue Keppra -Anxiety -hx of EPS, bipolar 1 disorder, depression; continue meds -known cognitive delay -Chronic normocytic anemia; baseline Hg around 11 -DAVID on CKD stage 3; baseline Cr around 1.3; continue to monitor renal function, gradually improving, avoid nephrotoxins, renally dose meds -hx of oropharyngeal dysphagia and with concern for possible aspiration overnight given N/V -Transaminitis, likely secondary to infection, improving continue to trend LFTs -Leukopenia resolved; WBC wnl -Hypernatremia resolved -NSTEMI; likely type II given acute infection with associated sepsis -sepsis on admission as evidenced by lactic acidosis (now resolved), fever, tachycardia, tachypnea -intertrigo, excoriation of bilateral gluteal area; frequent repositioning (q2h), keep skin clean and dry, nystatin powder. With increased breakdown, suspect this is contributing to her fever, tachycardia -at least moderate protein calorie malnutrition, contributing to bilateral LE edema, has had poor oral intake and this will diminish capacity for recovery; hypoalbuminemia. Add Ensure to meals though has had poor intake. May need to consider alternative nutrition if continued poor oral intake. NGT is not my first choice as she kept pulling it out when used for decompression. PICC line ordered for this -will give dose of Lasix as has been on consistent IVF hydration to prevent fluid overload -has not been able to consistently take her oral meds which is likely contributing to tachycardia and AMS -DVT ppx with Lovenox -fall precautions -re-orient as needed -Dispo: [facility]; had [facility] Danis Vargas -Code status: DNR/DNI -guarded prognosis Attestations Medical Necessity Statement*: Patient requires hospitalization for continued management of small bowel obstruction, with noted continued poor oral intake requiring alternate nutrition Time Spent in Patient Care: Greater than 35 minutes (>than 50% of time spen t in counselling and/or direct pt care on unit) . Coding Level of Care Code Acute Applications Support Specialist for Chg Fwd Diagnoses Small bowel obstruction K56.609 Ventral incisional hernia K43.2 Influenza with respiratory manifestation J11.1
[2019-05-03] MEDS: FUROsemide 10 mg/mL SDV 4mL 40 MG IVP (17:10)
[2019-05-03] MEDS: enoxaparin 30 mg/0.3 mL Syringe SUBCUT (20:45)
[2019-05-03] MEDS: LORazepam 2 mg/mL INJ 1 mL 1 MG IVP (20:45)
[2019-05-04] VITALS: BP 97/70; PULSE 121; RESP 26; TEMP 37.6; O2SAT 93
[2019-05-04] MEDS: metroNIDAZOLE IV 500 MG/100 ML PREMIX 100 MG IV ×3 (01:32→20:28)
[2019-05-04 04:00] VITALS: BP 94/62; PULSE 108; RESP 26; TEMP 37.4; O2SAT 93
[2019-05-04] MEDS: piperacillin-tazobactam 3.375 GM in sodium chloride 0.9% (plus) 50 ML IV ×3 (04:29→21:31)
[2019-05-04] MEDS: LORazepam 2 mg/mL INJ 1 mL 1 MG IVP ×2 (04:40→20:28)
--- NOTE | 2019-05-04 04:46 | PC.NURSE ---
Upon repositioning pt, Pt appears very anxious, yelling out and pulling at tubes. RR has increased to 26. Pt continues to have crackles and wheezing throughout all lung nj. 1mg Ativan given per order at this time.
[2019-05-04 07:02] LABS: Basophils % 0.5 %; Hematocrit 30.1 % (37.0-47.0); Hemoglobin 8.6 g/dL (11.5-15.3); Lymphocytes # 0.5 10^3/uL (0.8-4.8); Lymphocytes % 10.7 %; Mean Corpuscular HGB Conc 28.6 g/dL (30.0-36.0); Mean Corpuscular Hemoglobin 28.5 pg (28.0-34.0); Mean Corpuscular Volume 99.7 fL (81-99); Mean Platelet Volume 11.1 fL (7.4-10.4); Monocytes # 0.6 10^3/uL (0.2-0.9); Monocytes % 14.5 %; Neutrophils # 3.2 10^3/uL (1.8-7.7); Neutrophils % 73.6 %; Nucleated Red Blood Cells % 0 %; Platelet Count 176 10^3/cmm (130-400); Red Blood Count 3.02 10^6/uL (4.1-5.3); Red Cell Distribution Width 16.7 % (12.1-15.1); White Blood Count 4.3 10^3/uL (4.0-10.0)
[2019-05-04 07:25] LABS: Anion Gap 16.1 (5-19); Blood Urea Nitrogen 25 mg/dL (8-23); Calcium 7.3 mg/dL (8.5-10.5); Carbon Dioxide 21 mmol/L (22-29); Chloride 112 mmol/L (98-107); Glomerular Filtration Rate 19.3 mL/min (90-130); Glucose 85 mg/dL (65-115); Osmolality Calculated 298 mOsm/kg (285-295); Potassium 3.1 mmol/L (3.5-5.1); Sodium 146 mmol/L (136-145)
[2019-05-04 07:57] VITALS: BP 139/67; PULSE 104; RESP 19; TEMP 37.2; O2SAT 94
[2019-05-04] MEDS: lidocaine 1% INJ 20 mL 5 ML IV (08:25)
[2019-05-04] MEDS: FUROsemide 10 mg/mL SDV 4mL 40 MG IVP (08:25)
[2019-05-04] MEDS: potassium chloride premix 40 MEQ/100 ML PREMIX 25 MEQ IV (08:26)
[2019-05-04 09:56] LABS: Parathyroid Hormone 50.2 pg/mL (15-65)
[2019-05-04] MEDS: nystatin powder 15 gm Btl 1 APPLIC TOPICAL ×2 (11:00→17:44)
--- NOTE | 2019-05-04 11:47 | PC.SOCIAL ---
IMM Update Pg 2 of IMM given and explained to patient who verbalized understanding. Copy provided and copy in chart updated.
[2019-05-04 11:54] VITALS: BP 95/62; PULSE 121; RESP 18; TEMP 37.1; O2SAT 94
--- NOTE | 2019-05-04 11:59 | P.PN_ITS ---
Subjective Subjective: Interval history: Received dose of Ativan earlier this AM due to noted increased anxiety and agitation. Had 700 mL urine output overnight. Had 4 loose BMs yesterday. Patient seen and examined earlier this afternoon, seems to be easier to arouse and more alert per nursing staff. Continues to refuse PO intake. Sounds quite coarse and congested, given 40 mg IV Lasix, had 1250 mL urine output during day shift, BP stable. Potassium replaced IV. Medications: Reviewed: Yes Medication Review Details: Active Medications Generic Name Dose Route Start Last Admin Trade Name Freq PRN Reason Stop Dose Admin Acetaminophen 650 mg 04/24/19 02:50 05/03/19 15:32 Tylenol PO 650 mg Q6H PRN Administration MILD PAIN Acetaminophen 650 mg 04/29/19 03:25 04/29/19 03:47 Tylenol NM 650 mg Q6H PRN Administration MILD PAIN Albuterol/Ipratrop ium 3 ml 04/23/19 17:54 05/01/19 22:56 Duoneb INHALATION 3 ml Q6H PRN Administration SHORTNESS OF MATTHIEU TH Bisacodyl 10 mg 04/23/19 17:39 Dulcolax PO DAILY PRN CONSTIPATION Chlorpromazine HCl 100 mg 04/25/19 21:00 05/04/19 10:58 Thorazine PO Not Given TID ANTONIO Clonazepam 0.5 mg 04/23/19 21:00 05/04/19 10:59 Klonopin PO Not Given TID ANTONIO Enoxaparin Sodium 30 mg 04/23/19 17:45 05/03/19 20:45 Lovenox SUBCUT 30 mg Q24H ANTONIO Administration Piperacillin Sod/T azobactam 50 mls @ 12.5 mls /hr 04/30/19 16:30 05/04/19 04:29 Sod 3.375 gm/ So dium Chloride IV 12.5 mls/hr Q8H ANTONIO Administration Protocol Metronidazole 500 mg in 100 mls @ 100 mls/hr 05/01/19 16:00 05/04/19 02:40 Flagyl Iv IV Infused Q8H ANTONIO Infusion Protocol Levetiracetam 500 mg 04/23/19 18:00 05/04/19 10:59 Keppra PO Not Given BID ANTONIO Lorazepam 1 mg 05/03/19 15:24 05/04/19 04:40 Ativan IVP 1 mg Q4H PRN Administration ANXIETY Metoprolol Succina te 50 mg 04/25/19 18:00 05/04/19 10:59 Toprol Xl PO Not Given BID [facility] Metoprolol Tartrat e 5 mg 04/28/19 20:34 05/02/19 22:27 Metoprolol Tartr ate IV 5 mg Q4H PRN Administration HEART RATE-HIGH Non-Formulary Medi cation 100 mg 04/24/19 09:00 05/04/19 10:58 Amantadine Hcl PO Not Given DAILY [facility] Nystatin 1 applic 05/02/19 18:00 05/04/19 11:00 Nystatin Powder TOPICAL 1 applic BID ANTONIO Administration Oxcarbazepine 300 mg 04/23/19 21:00 05/04/19 10:59 Trileptal PO Not Given TID [facility] Phenol 5 spray 04/28/19 20:35 Phenaseptic MUCOUS MEM Q2H PRN SORE THROAT Sodium Phosphate 118 ml 04/23/19 17:52 Fleet Enema NM DAILY PRN Constipation nitrofurantoin [From Macrobid] Allergy (Verified 04/27/19 07:57) ALGY-Rash oseltamivir [From Tamiflu] Allergy (Verified 04/27/19 07:57) ALGY-Hives Vitals/I&O/Wt Last Vital Signs Temp 98.7 F 05/04/19 11:54 Pulse 121 H 05/04/19 11:54 Resp 18 05/04/19 11:54 BP 95/62 05/04/19 11:54 Pulse Ox 94 05/04/19 11:54 05/03/19 05/04/19 05/04/19 22:59 06:59 14:59 Intake Total 150 / 300 150 / 450 Output Total 450 / 450 700 / 1150 Balance -300 / -150 -550 / -700 Physical Exam Const: COMMON NORMALS: no apparent distress GENERAL APPEARANCE: cooperative, frail appearing and appears older than stated age; not comfortable ORIENTATION/CONSCIOUSNESS: Yes awake HENMT: COMMON NORMALS: normocephalic, head/scalp atraumatic and hearing grossly normal bilaterally HEAD & SCALP: normocephalic and atraumatic NOSE: other (NGT in place) Eye: COMMON NORMALS: PERRL, EOMs intact bilaterally and conjunctivae normal CONJUNCTIVA: Yes conjunctivae normal PUPIL: Yes PERRL Neck/C-Spine: COMMON NORMALS: full ROM GENERAL: Yes normal visual inspection and Yes trachea midline Resp: COMMON NORMALS: normal respiratory effort, no retractions and no use of accessory muscles EFFORT & INSPECTION: Yes able to speak in complete sentences, Yes symmetric chest movement and Yes tachypneic AUSCULTATION: crackles OTHER: -coarse breath sounds, on 3 L NC Cardio: COMMON NORMALS: regular rate, regular rhythm, S1 normal heart sound, S2 normal heart sound and no murmurs RATE: regular rate RHYTHM: regular rhythm HEART SOUNDS: S1 normal and S2 normal GI: COMMON NORMALS: soft to palpation and non-tender INSPECTION: Yes abdominal distension and Yes visible herniation (known ventral hernia, partially reducible) AUSCULTATION: Yes hypoactive bowel sounds PALPATION: Yes soft and No tender : BLADDER/KIDNEY EXAM: Yes catheter in place Catheter type (Female): urethral Extremity: COMMON NORMALS: normal to inspection, full ROM and no clubbing, cyanosis or edema; negative for no pedal edema NARRATIVE EXTREMITY EXAM: -contracted LEs GENERAL: Yes edema (non-pitting edema around bilateral ankles) Neuro: COMMON NORMALS: moves all extremities, no focal motor deficits and no sensory deficits noted OTHER: -baseline cognitive delay Psych: COMMON NORMALS: cooperative SPEECH: Yes other (speech quite high pitched and somewhat difficult to understand) MOOD & AFFECT: Yes anxious Skin: COMMON NORMALS: no rashes or lesions noted, no jaundice, no petechiae and no mottling GENERAL SKIN EXAM: no rashes or lesions noted OTHER: - inguinal intertrigo bilaterally, noted diffuse erythematous excoriation on bilateral gluteal area with discrete areas of superficial breakdown and erythema Urinary Catheter Management^: Lou: Cath Placed During This Visit: yes Urethral Indwelling: Yes Reason for Continuing Indwelling Catheter: Chronic Indwelling Urinary Catheter on Admission Urinary Catheter Date of Insertion: 04/23/19 Urinary Catheter Time of Insertion: 20:30 Data : 05/04/19 06:36 05/04/19 06:36 Micro: Microbiology 05/02/19 11:12 Urine Culture - Final Urine,Clean Catch 05/02/19 10:28 Blood Culture - Preliminary Blood NEGATIVE TO DATE 05/02/19 10:31 Blood Culture - Preliminary Blood NEGATIVE TO DATE A&P Assessment and plan (1) Small bowel obstruction: -Noted evidence of small bowel obstruction on initial imaging; now resol mita -NG tube discontinued, last BM on 05/02, on dysphagia diet though has had minimal oral intake -Pain control and antiemetics as needed -Surgery consult by Dr. Goss appreciated; continue conservative management at this time -continue serial abdominal examinations; repeat KUB (05/01) shows resolution of SBO -repeat CXR (04/30) unchanged. Status: Resolved Code(s): K56.609 - Unspecified intestinal obstruction, unspecified as to partial versus complete obstruction (2) Ventral incisional hernia: -has known chronically incarcerated ventral hernia, partially reducible Status: Acute Code(s): K43.2 - Incisional hernia without obstruction or gangrene (3) Influenza with respiratory manifestation: -found to be influenza B positive; droplet isolation precautions -has allergy to tamiflu -continue to monitor respiratory status; supplemental oxygen as needed Status: Acute Code(s): J11.1 - Influenza due to unidentified influenza virus with other respiratory manifestations Additional A&P Information -Obesity: BMI-32 kg/m2 -Seizure disorder; continue Keppra -Anxiety; requiring Ativan PRN -hx of EPS, bipolar 1 disorder, depression; continue meds -known cognitive delay -Chronic normocytic anemia; baseline Hg around 11 -DAVID on CKD stage 3; baseline Cr around 1.3; continue to monitor renal function, gradually improving, avoid nephrotoxins, renally dose meds -hx of oropharyngeal dysphagia and with concern for possible aspiration overnight given N/V -Transaminitis, likely secondary to infection, improving, continue to trend LFTs -Leukopenia resolved; WBC wnl -Hypernatremia resolved -NSTEMI; likely type II given acute infection with associated sepsis -sepsis on admission as evidenced by lactic acidosis (now resolved), fever, tachycardia, tachypnea -intertrigo, excoriation of bilateral gluteal area; frequent repositioning (q2h), keep skin clean and dry, nystatin powder. With increased breakdown, suspect this is contributing to her fever, tachycardia -at least moderate protein calorie malnutrition, contributing to bilateral LE edema, has had poor oral intake and this will diminish capacity for recovery; hypoalbuminemia. Added Ensure to meals though has had poor intake. May need to consider alternative nutrition if continued poor oral intake. NGT is not my first choice as she kept pulling it out when used for decompression. PICC line ordered for this -Lasix PRN as has been on consistent IVF hydration to prevent fluid overload -has not been able to consistently take her oral meds which is likely contributing to tachycardia and AMS -DVT ppx with Lovenox -fall precautions -re-orient as needed -Dispo: [facility]; had DPOA Danis Vargas -Code status: DNR/DNI -guarded prognosis Attestations Medical Necessity Statement*: Patient requires hospitalization pending improved oral intake and tolerance. Time Spent in Patient Care: 16 - 35 minutes (>than 50% of time spent in counselling and/or direct pt care on unit) . Coding Level of Care Code Acute Medical Transport Specialist for g Fwd Exam Comprehensive Diagnoses Small bowel obstruction K56.609 Ventral incisional hernia K43.2 Influenza with respiratory manifestation J11.1
[2019-05-04 15:17] VITALS: BP 105/67; PULSE 98; RESP 18; TEMP 36.9; O2SAT 93
[2019-05-04 19:37] VITALS: BP 102/64; PULSE 107; RESP 16; TEMP 36.8; O2SAT 96
[2019-05-04] MEDS: enoxaparin 30 mg/0.3 mL Syringe SUBCUT (20:27)
[2019-05-05] VITALS (8 sets, daily range): BP systolic 94–115; BP diastolic 59–74; PULSE 98–133; RESP 18–28; TEMP 36.7–37.4; O2SAT 92–97
[2019-05-05] MEDS: LORazepam 2 mg/mL INJ 1 mL 1 MG IVP (00:49)
[2019-05-05] MEDS: metoprolol tartrate 1 mg/1 mL SDV 5 mL 5 MG IV ×2 (00:49→04:22)
[2019-05-05] MEDS: metroNIDAZOLE IV 500 MG/100 ML PREMIX 100 MG IV ×2 (04:20→16:41)
[2019-05-05] MEDS: sodium chloride 0.9% 500 ML 999 ML IV (04:26)
[2019-05-05 06:05] LABS: Basophils % 0.4 %; Hematocrit 29.4 % (37.0-47.0); Hemoglobin 8.7 g/dL (11.5-15.3); Lymphocytes # 0.3 10^3/uL (0.8-4.8); Lymphocytes % 6.1 %; Mean Corpuscular HGB Conc 29.6 g/dL (30.0-36.0); Mean Corpuscular Hemoglobin 28.4 pg (28.0-34.0); Mean Corpuscular Volume 96.1 fL (81-99); Mean Platelet Volume 10.8 fL (7.4-10.4); Monocytes # 0.6 10^3/uL (0.2-0.9); Monocytes % 9.9 %; Neutrophils # 4.6 10^3/uL (1.8-7.7); Neutrophils % 83.1 %; Nucleated Red Blood Cells % 0 %; Platelet Count 214 10^3/cmm (130-400); Red Blood Count 3.06 10^6/uL (4.1-5.3); Red Cell Distribution Width 16.9 % (12.1-15.1); White Blood Count 5.5 10^3/uL (4.0-10.0)
[2019-05-05 06:20] LABS: Alanine Aminotransferase 25 U/L (0-33); Albumin Level 2.4 g/dL (3.5-5.2); Alkaline Phosphatase 64 IU/L (35-105); Anion Gap 23.3 (5-19); Aspartate Amino Transferase 13 U/L (0-32); Blood Urea Nitrogen 29 mg/dL (8-23); Calcium 7.4 mg/dL (8.5-10.5); Carbon Dioxide 16 mmol/L (22-29); Chloride 118 mmol/L (98-107); Globulin 3.4 g/dL (1.3-4.6); Glomerular Filtration Rate 16.3 mL/min (90-130); Glucose 86 mg/dL (65-115); Osmolality Calculated 314 mOsm/kg (285-295); Potassium 3.3 mmol/L (3.5-5.1); Sodium 154 mmol/L (136-145); Total Bilirubin 0.2 mg/dL (0.15-1.2); Total Protein 5.8 g/dL (6.6-8.7)
[2019-05-05] MEDS: piperacillin-tazobactam 3.375 GM in sodium chloride 0.9% (plus) 50 ML IV ×2 (06:44→17:52)
[2019-05-05 06:52] LABS: Slide Review Slide Review Perform
[2019-05-05] MEDS: nystatin powder 15 gm Btl 1 APPLIC TOPICAL ×2 (10:17→17:51)
--- NOTE | 2019-05-05 14:45 | P.PN_ITS ---
Subjective Subjective: Interval history: Patient seen and examined, resting in bed, PICC line placement unsuccessful despite multiple attempts so will place NGT and start on tube feeds. Based on prior experience, will need 1:1 monitoring to keep NGT in place. Had some bleeding following NGT insertion, had some resistance during attempt to place through R nare. Medications: Reviewed: Yes Medication Review Details: Active Medications Generic Name Dose Route Start Last Admin Trade Name Freq PRN Reason Stop Dose Admin Acetaminophen 650 mg 04/24/19 02:50 05/03/19 15:32 Tylenol PO 650 mg Q6H PRN Administration MILD PAIN Acetaminophen 650 mg 04/29/19 03:25 04/29/19 03:47 Tylenol RI 650 mg Q6H PRN Administration MILD PAIN Albuterol/Ipratrop ium 3 ml 04/23/19 17:54 05/01/19 22:56 Duoneb INHALATION 3 ml Q6H PRN Administration SHORTNESS OF MATTHIEU TH Bisacodyl 10 mg 04/23/19 17:39 Dulcolax PO DAILY PRN CONSTIPATION Chlorpromazine HCl 100 mg 04/25/19 21:00 05/05/19 19:22 Thorazine PO Not Given TID ANTONIO Clonazepam 0.5 mg 04/23/19 21:00 05/05/19 19:22 Klonopin PO Not Given TID ANTONIO Enoxaparin Sodium 30 mg 04/23/19 17:45 05/04/19 20:27 Lovenox SUBCUT 30 mg Q24H ANTONIO Administration Piperacillin Sod/T azobactam 50 mls @ 12.5 mls /hr 04/30/19 16:30 05/05/19 17:52 Sod 3.375 gm/ So dium Chloride IV 12.5 mls/hr Q8H ANTONIO Administration Protocol Metronidazole 500 mg in 100 mls @ 100 mls/hr 05/01/19 16:00 05/05/19 17:53 Flagyl Iv IV Infused Q8H ANTONIO Infusion Protocol Levetiracetam 500 mg 04/23/19 18:00 05/05/19 17:51 Keppra PO 500 mg BID ANTONIO Administration Lorazepam 1 mg 05/03/19 15:24 05/05/19 00:49 Ativan IVP 1 mg Q4H PRN Administration ANXIETY Metoprolol Succina te 50 mg 04/25/19 18:00 05/05/19 17:51 Toprol Xl PO 50 mg BID ANTONIO Administration Metoprolol Tartrat e 5 mg 04/28/19 20:34 05/05/19 00:49 Metoprolol Tartr ate IV 5 mg Q4H PRN Administration HEART RATE-HIGH Non-Formulary Medi cation 100 mg 04/24/19 09:00 05/05/19 09:46 Amantadine Hcl PO Not Given DAILY [facility] Nystatin 1 applic 05/02/19 18:00 05/05/19 17:51 Nystatin Powder TOPICAL 1 applic BID ANTONIO Administration Oxcarbazepine 300 mg 04/23/19 21:00 05/05/19 19:22 Trileptal PO Not Given TID [facility] Phenol 5 spray 04/28/19 20:35 Phenaseptic MUCOUS MEM Q2H PRN SORE THROAT Sodium Phosphate 118 ml 04/23/19 17:52 Fleet Enema RI DAILY PRN Constipation nitrofurantoin [From Macrobid] Allergy (Verified 04/27/19 07:57) ALGY-Rash oseltamivir [From Tamiflu] Allergy (Verified 04/27/19 07:57) ALGY-Hives Vitals/I&O/Wt Last Vital Signs Temp 98.4 F 05/05/19 12:00 Pulse 98 05/05/19 12:00 Resp 18 05/05/19 12:00 BP 115/70 05/05/19 12:00 Pulse Ox 95 05/05/19 12:00 05/04/19 05/05/19 05/05/19 22:59 06:59 14:59 Intake Total 150 / 300 50 / 350 50 / 50 Output Total 1250 / 1250 550 / 1800 Balance -1100 / -950 -500 / -1450 50 / 50 Physical Exam Const: COMMON NORMALS: no apparent distress GENERAL APPEARANCE: cooperative, frail appearing and appears older than stated age; not comfortable ORIENTATION/CONSCIOUSNESS: Yes awake HENMT: COMMON NORMALS: normocephalic, head/scalp atraumatic and hearing grossly normal bilaterally HEAD & SCALP: normocephalic and atraumatic NOSE: other (NGT in place) Eye: COMMON NORMALS: PERRL, EOMs intact bilaterally and conjunctivae normal CONJUNCTIVA: Yes conjunctivae normal PUPIL: Yes PERRL Neck/C-Spine: COMMON NORMALS: full ROM GENERAL: Yes normal visual inspection and Yes trachea midline Resp: COMMON NORMALS: normal respiratory effort, no retractions and no use of accessory muscles EFFORT & INSPECTION: Yes able to speak in complete sentences, Yes symmetric chest movement and Yes tachypneic AUSCULTATION: crackles OTHER: -coarse breath sounds, on 3 L NC Cardio: COMMON NORMALS: regular rate, regular rhythm, S1 normal heart sound, S2 normal heart sound and no murmurs RATE: regular rate RHYTHM: regular rhythm HEART SOUNDS: S1 normal and S2 normal GI: COMMON NORMALS: soft to palpation and non-tender INSPECTION: Yes abdominal distension and Yes visible herniation (known ventral hernia, partially reducible) AUSCULTATION: Yes hypoactive bowel sounds PALPATION: Yes soft and No tender : BLADDER/KIDNEY EXAM: Yes catheter in place Catheter type (Female): urethral Extremity: COMMON NORMALS: normal to inspection, full ROM and no clubbing, cyanosis or edema; negative for no pedal edema NARRATIVE EXTREMITY EXAM: -contracted LEs GENERAL: Yes edema (non-pitting edema around bilateral ankles) Neuro: COMMON NORMALS: moves all extremities, no focal motor deficits and no sensory deficits noted OTHER: -baseline cognitive delay Psych: COMMON NORMALS: cooperative SPEECH: Yes other (speech quite high pitched and somewhat difficult to understand) MOOD & AFFECT: Yes anxious Skin: COMMON NORMALS: no rashes or lesions noted, no jaundice, no petechiae and no mottling GENERAL SKIN EXAM: no rashes or lesions noted OTHER: - inguinal intertrigo bilaterally, noted diffuse erythematous excoriation on bilateral gluteal area with discrete areas of superficial breakdown and erythema Urinary Catheter Management^: Lou: Cath Placed During This Visit: yes Urethral Indwelling: Yes Reason for Continuing Indwelling Catheter: Chronic Indwelling Urinary Catheter on Admission Urinary Catheter Date of Insertion: 04/23/19 Urinary Catheter Time of Insertion: 20:30 Data : 05/05/19 05:42 05/05/19 05:42 A&P Assessment and plan (1) Small bowel obstruction: -Noted evidence of small bowel obstruction on initial imaging; now resolved -NG tube discontinued, last BM on 05/02, on dysphagia diet though has had minimal oral intake -Pain control and antiemetics as needed -Surgery consult by Dr. Goss appreciated; continue conservative management at this time -continue serial abdominal examinations; repeat KUB (05/01) shows resolution of SBO -repeat CXR (04/30) unchanged. Status: Resolved Code(s): K56.609 - Unspecified intestinal obstruction, unspecified as to partial versus complete obstruction (2) Ventral incisional hernia: -has known chronically incarcerated ventral hernia, partially reducible Status: Acute Code(s): K43.2 - Incisional hernia without obstruction or gangrene (3) Influenza with respiratory manifestation: -found to be influenza B positive; droplet isolation precautions -has allergy to tamiflu -continue to monitor respiratory status; supplemental oxygen as needed Status: Acute Code(s): J11.1 - Influenza due to unidentified influenza virus with other respiratory manifestations Additional A&P Information -Obesity: BMI-32 kg/m2 -Seizure disorder; continue Keppra -Anxiety; requiring Ativan PRN -hx of EPS, bipolar 1 disorder, depression; continue meds -known cognitive delay -Chronic normocytic anemia; baseline Hg around 11 -DAVID on CKD stage 3; baseline Cr around 1.3; continue to monitor renal function, gradually improving, avoid nephrotoxins, renally dose meds -hx of oropharyngeal dysphagia and with concern for possible aspiration overnight given N/V -Transaminitis, likely secondary to infection, improving, continue to trend LFTs -Leukopenia resolved; WBC wnl -Hypernatremia; is off IVF -NSTEMI; likely type II given acute infection with associated sepsis -sepsis on admission as evidenced by lactic acidosis (now resolved), fever, tachycardia, tachypnea -intertrigo, excoriation of bilateral gluteal area; frequent repositioning (q2h), keep skin clean and dry, nystatin powder. With increased breakdown, suspect this is contributing to her fever, tachycardia -at least moderate protein calorie malnutrition, contributing to bilateral LE edema, has had poor oral intake and this will diminish capacity for recovery; hypoalbuminemia. Added Ensure to meals though has had poor intake. May need to consider alternative nutrition if continued poor oral intake. NGT is not my first choice as she kept pulling it out when used for decompression. PICC line ordered for this but placement unsuccessful. Will have to go with NGT insertion and tube feeds for now. Will need 1:1 monitoring to keep NGT in place -Lasix PRN as has been on consistent IVF hydration to prevent fluid overload -has not been able to consistently take her oral meds which is likely contributing to tachycardia and AMS -DVT ppx with Lovenox -fall precautions -re-orient as needed -Dispo: [facility]; had [facility] Danis Vargas -Code status: DNR/DNI -guarded prognosis Attestations Medical Necessity Statement*: Patient requires hospitalization for initiation of tube feeds due to poor nutrition status and limited oral intake for several days. Time Spent in Patient Care: 16 - 35 minutes (>than 50% of time spent in counselling and/or direct pt care on unit) . Coding Level of Care Code Acute Head Start Coordinator for Chg Fwd Diagnoses Small bowel obstruction K56.609 Ventral incisional hernia K43.2 Influenza with respiratory manifestation J11.1
--- NOTE | 2019-05-05 14:51 | XRR_ITS ---
PROCEDURE INFORMATION: Exam: XR Chest, 1 View Exam date and time: 05/05/2019 3:20 PM Age: 63 years old Clinical indication: Device placement; Ng tube; Additional info: Placement of ng tube TECHNIQUE: Imaging protocol: XR of the chest Views: 1 view. COMPARISON: CR XR chest 1V portable [id number] 05/01/2019 3:44 PM FINDINGS: Tubes, catheters and devices: Nasogastric tube is seen traversing below the diaphragm in the region of stomach. Lungs: Atelectasis at left lung base. Pleural space: Unremarkable. No pleural effusion. No pneumothorax. Heart/Mediastinum: Stable cardiac silhouette. Bones/joints: Unremarkable. XR/XR chest 1V portable [id number] IMPRESSION: Nasogastric tube with its tip at the level of the stomach.
[2019-05-05] MEDS: CLONazepam 0.5 mg Tablet PO (15:55)
[2019-05-05] MEDS: OXcarbazepine 300 mg Tablet PO (15:55)
--- NOTE | 2019-05-05 16:11 | PC.NURSE ---
[facility] [place] nurse arrived at time of Ng placement ot [id number]. He is sitting 1:1 with pt and using paper chart.
[2019-05-05] MEDS: levETIRAcetam 500 mg Tablet PO (17:51)
[2019-05-05] MEDS: metoprolol succinate ER (24 HR) 50 mg Tablet PO (17:51)
[2019-05-05] MEDS: enoxaparin 30 mg/0.3 mL Syringe SUBCUT (19:49)
[2019-05-06] VITALS (10 sets, daily range): BP systolic 96–166; BP diastolic 56–81; PULSE 118–131; RESP 18–46; TEMP 36.6–37.4; O2SAT 90–96
[2019-05-06] MEDS: metoprolol tartrate 1 mg/1 mL SDV 5 mL 5 MG IV ×4 (00:02→14:19)
--- NOTE | 2019-05-06 00:06 | XR_ITS ---
WS: [id number] PORTABLE CHEST HISTORY: increased work of breathing and decrease in sats COMPARISON: 05/05/2019 Nasogastric tube remains in place with tip below the GE junction. Continued partial atelectasis LEFT lower lobe or lingula. Partial obscuration of the LEFT hemidiaphra gm. There are patchy ill-defined consolidations throughout both lungs. Probably on the basis of pneum onitis or atelectasis. Small LEFT pleural effusion is likely. Cardiac size: Mildly enlarged cardiac silhouette. Mediastinum/Aorta: Normal mediastinum. RIGHT calcific tendinitis. XR/XR chest 1V portable [id number] IMPRESSION: 1. Nasogastric tube remains in good position. 2. Ill-defined patchy opacifications bilaterally probably representing develop ing pneumonitis or areas of atelectasis. 3. Continued partial atelectasis LEFT lower lobe and/or lingula.
[2019-05-06 00:28] LABS: ABG PCO2 29.6 mmHg (35-45); ABG PH Result 7.34 (7.35-7.45); Arterial Blood Gas Hematocrit 26.5 % (37-47); Base Excess ABG -8.7 mmol/L (-2.0-2.0); Blood Gas Allen Test Pos; Blood Gas Sample Site Radial, right; Blood Gas Sample Type Arterial; HCO3 ABG 16.1 mmol/L (22-26); Oxygen Device NC; PO2 ABG 70.5 mmHg (80.0-100.0)
--- NOTE | 2019-05-06 00:44 | PM.EVENT ---
Event Note Event Note: Called with patient breathing 30-40 times a minute. Not requiring more oxygen but saturations have been a little bit lower. Review of history shows that NG tube was placed this evening and tube feeds were started at 10 cc an hour. Nursing staff check residuals earlier and they were okay. Patient just seems very uncomfortable. She has been moaning more. Given the events, I did go on and check a chest x-ray. I do not see any obvious difference from previous ones but several of her chest x-rays are quite rotated. ABG showed pH of 7.3 06/10/1969. This is similar to previous ABG that was done on April 22. Patient had been asleep earlier but is more awake now. I am wondering if she is just not liking having the tube in place. She has some as needed Ativan ordered. We will give her a dose of that now. Looks like she had been on Klonopin but it is currently held. It had been a 3 times daily dose. Its possible that this is also a contributing factor. Reviewed with nursing staff who will continue to monitor and notify me of any further changes.
[2019-05-06] MEDS: metroNIDAZOLE IV 500 MG/100 ML PREMIX 100 MG IV ×4 (00:46→23:59)
[2019-05-06] MEDS: LORazepam 2 mg/mL INJ 1 mL 1 MG IVP ×5 (00:50→20:19)
[2019-05-06] MEDS: piperacillin-tazobactam 3.375 GM in sodium chloride 0.9% (plus) 50 ML IV ×3 (01:41→18:08)
[2019-05-06 05:04] LABS: Anion Gap 21.3 (5-19); Blood Urea Nitrogen 31 mg/dL (8-23); Calcium 7.5 mg/dL (8.5-10.5); Carbon Dioxide 16 mmol/L (22-29); Chloride 122 mmol/L (98-107); Glucose 92 mg/dL (65-115); Osmolality Calculated 319 mOsm/kg (285-295); Potassium 3.3 mmol/L (3.5-5.1); Sodium 156 mmol/L (136-145)
[2019-05-06] MEDS: nystatin powder 15 gm Btl 1 APPLIC TOPICAL ×2 (09:14→17:34)
--- NOTE | 2019-05-06 12:08 | PC.SOCIAL ---
IMM Updated Updated pt on Pg 2 IMM. NO questions voiced. Provided pt a copy & left on their bedside table. Signed, dated, & timed copy in chart.
--- NOTE | 2019-05-06 20:02 | PM.PN ---
Subjective Subjective: Interval history: Patient seen and examined, has been quite sleepy today per nursing staff, sitter at bedside, received report from Dr. Cox, reference note for more details. Tube feeds remain at 10 mL/hr. Had 300 mL urine output overnight. AM labs noted, hypernatremia, hypokalemia, renal impairment. Will start on IVF with Lasix to prevent fluid overload. Medications: Reviewed: Yes Medication Review Details: Active Medications Generic Name Dose Route Start Last Admin Trade Name Freq PRN Reason Stop Dose Admin Acetaminophen 650 mg 04/24/19 02:50 05/03/19 15:32 Tylenol PO 650 mg Q6H PRN Administration MILD PAIN Acetaminophen 650 mg 04/29/19 03:25 04/29/19 03:47 Tylenol CO 650 mg Q6H PRN Administration MILD PAIN Albuterol/Ipratrop ium 3 ml 04/23/19 17:54 05/01/19 22:56 Duoneb INHALATION 3 ml Q6H PRN Administration SHORTNESS OF MATTHIEU TH Bisacodyl 10 mg 04/23/19 17:39 Dulcolax PO DAILY PRN CONSTIPATION Chlorpromazine HCl 100 mg 04/25/19 21:00 05/06/19 13:50 Thorazine PO Not Given TID ANTONIO Clonazepam 0.5 mg 04/23/19 21:00 05/05/19 19:22 Klonopin PO Not Given TID ANTONIO Enoxaparin Sodium 30 mg 04/23/19 17:45 05/05/19 19:49 Lovenox SUBCUT 30 mg Q24H ANTONIO Administration Piperacillin Sod/T azobactam 50 mls @ 12.5 mls /hr 04/30/19 16:30 05/06/19 18:08 Sod 3.375 gm/ So dium Chloride IV 12.5 mls/hr Q8H ANTONIO Administration Protocol Metronidazole 500 mg in 100 mls @ 100 mls/hr 05/01/19 16:00 05/06/19 16:34 Flagyl Iv IV 100 mls/hr Q8H ANTONIO Administration Protocol Levetiracetam 500 mg 04/23/19 18:00 05/06/19 13:49 Keppra PO Not Given BID ANTONIO Lorazepam 1 mg 05/03/19 15:24 05/06/19 14:19 Ativan IVP 1 mg Q4H PRN Administration ANXIETY Metoprolol Succina te 50 mg 04/25/19 18:00 05/06/19 13:49 Toprol Xl PO Not Given BID [facility] Metoprolol Tartrat e 5 mg 04/28/19 20:34 05/06/19 14:19 Metoprolol Tartr ate IV 5 mg Q4H PRN Administration HEART RATE-HIGH Non-Formulary Medi cation 100 mg 04/24/19 09:00 05/06/19 09:04 Amantadine Hcl PO Not Given DAILY [facility] Nystatin 1 applic 05/02/19 18:00 05/06/19 17:34 Nystatin Powder TOPICAL 1 applic BID ANTONIO Administration Oxcarbazepine 300 mg 04/23/19 21:00 05/06/19 13:49 Trileptal PO Not Given TID [facility] Phenol 5 spray 04/28/19 20:35 Phenaseptic MUCOUS MEM Q2H PRN SORE THROAT Sodium Phosphate 118 ml 04/23/19 17:52 Fleet Enema CO DAILY PRN Constipation nitrofurantoin [From Macrobid] Allergy (Verified 04/27/19 07:57) ALGY-Rash oseltamivir [From Tamiflu] Allergy (Verified 04/27/19 07:57) ALGY-Hives Vitals/I&O/Wt Last Vital Signs Temp 98.8 F 05/06/19 19:47 Pulse 126 H 05/06/19 19:47 Resp 26 H 05/06/19 19:47 BP 115/63 05/06/19 19:47 Pulse Ox 93 05/06/19 19:47 05/06/19 05/06/19 05/06/19 06:59 14:59 22:59 Intake Total 150 / 430 230 / 230 Output Total 300 / 550 325 / 325 300 / 625 Balance -150 / -120 -95 / -95 -300 / -395 Physical Exam Const: COMMON NORMALS: no apparent distress GENERAL APPEARANCE: cooperative, frail appearing and appears older than stated age; not comfortable ORIENTATION/CONSCIOUSNESS: Yes awake HENMT: COMMON NORMALS: normocephalic, head/scalp atraumatic and hearing grossly normal bilaterally HEAD & SCALP: normocephalic and atraumatic NOSE: other (NGT in place) Eye: COMMON NORMALS: PERRL, EOMs intact bilaterally and conjunctivae normal CONJUNCTIVA: Yes conjunctivae normal PUPIL: Yes PERRL Neck/C-Spine: COMMON NORMALS: full ROM GENERAL: Yes normal visual inspection and Yes trachea midline Resp: COMMON NORMALS: normal respiratory effort, no retractions and no use of accessory muscles EFFORT & INSPECTION: Yes able to speak in complete sentences, Yes symmetric chest movement and Yes tachypneic AUSCULTATION: crackles OTHER: -coarse breath sounds, on 3 L NC Cardio: COMMON NORMALS: regular rate, regular rhythm, S1 normal heart sound, S2 normal heart sound and no murmurs RATE: regular rate RHYTHM: regular rhythm HEART SOUNDS: S1 normal and S2 normal GI: COMMON NORMALS: soft to palpation and non-tender INSPECTION: Yes abdominal distension and Yes visible herniation (known ventral hernia, partially reducible) AUSCULTATION: Yes hypoactive bowel sounds PALPATION: Yes soft and No tender : BLADDER/KIDNEY EXAM: Yes catheter in place Catheter type (Female): urethral Extremity: COMMON NORMALS: normal to inspection, full ROM and no clubbing, cyanosis or edema; negative for no pedal edema NARRATIVE EXTREMITY EXAM: -contracted LEs GENERAL: Yes edema (non-pitting edema around bilateral ankles) Neuro: COMMON NORMALS: moves all extremities, no focal motor deficits and no sensory deficits noted OTHER: -baseline cognitive delay Psych: COMMON NORMALS: cooperative SPEECH: Yes other (speech quite high pitched and somewhat difficult to understand) MOOD & AFFECT: Yes anxious Skin: COMMON NORMALS: no rashes or lesions noted, no jaundice, no petechiae and no mottling GENERAL SKIN EXAM: no rashes or lesions noted OTHER: -inguinal intertrigo bilaterally, noted diffuse erythematous excoriation on bilateral gluteal area with discrete areas of superficial breakdown and erythema Urinary Catheter Management^: Lou: Cath Placed During This Visit: yes Urethral Indwelling: Yes Reason for Continuing Indwelling Catheter: Chronic Indwelling Urinary Catheter on Admission Urinary Catheter Date of Insertion: 04/23/19 Urinary Catheter Time of Insertion: 20:30 Data : 05/05/19 05:42 05/06/19 04:20 A&P Assessment and plan (1) Small bowel obstruction: -Noted evidence of small bowel obstruction on initial imaging; now resolved -NG tube discontinued, last BM on 05/02, on dysphagia diet though has had minimal oral intake -Pain control and antiemetics as needed -Surgery consult by Dr. Goss appreciated; continue conservative management at this time -continue serial abdominal examinations; repeat KUB (05/01) shows resolution of SBO -repeat CXR (04/30) unchanged. Status: Resolved Code(s): K56.609 - Unspecified intestinal obstruction, unspecified as to partial versus complete obstruction (2) Ventral incisional hernia: -has known chronically incarcerated ventral hernia, partially reducible Status: Acute Code(s): K43.2 - Incisional hernia without obstruction or gangrene (3) Influenza with respiratory manifestation: -found to be influenza B positive; droplet isolation precautions -has allergy to tamiflu -continue to monitor respiratory status; supplemental oxygen as needed Status: Acute Code(s): J11.1 - Influenza due to unidentified influenza virus with other respiratory manifestations Additional A&P Information -Obesity: BMI-32 kg/m2 -Seizure disorder; continue Keppra -Anxiety; requiring Ativan PRN -hx of EPS, bipolar 1 disorder, depression; continue meds -known cognitive delay -Chronic normocytic anemia; baseline Hg around 11 -DAVID on CKD stage 3; baseline Cr around 1.3; continue to monitor renal function, gradually improving, avoid nephrotoxins, renally dose meds -hx of oropharyngeal dysphagia and with concern for possible aspiration overnight given N/V -Transaminitis, likely secondary to infection, improving, continue to trend LFTs -Leukopenia resolved; WBC wnl -Hypernatremia; on IVF -NSTEMI; likely type II given acute infection with associated sepsis -sepsis on admission as evidenced by lactic acidosis (now resolved), fever, tachycardia, tachypnea -intertrigo, excoriation of bilateral gluteal area; frequent repositioning (q2h), keep skin clean and dry, nystatin powder. With increased breakdown, suspect this is contributing to her fever, tachycardia -at least moderate protein calorie malnutrition, contributing to bilateral LE edema, has had poor oral intake and this will diminish capacity for recovery; hypoalbuminemia. Added Ensure to meals though has had poor intake. May need to consider alternative nutrition if continued poor oral intake. NGT is not my first choice as she kept pulling it out when used for decompression. PICC line ordered for this but placement unsuccessful. Will have to go with NGT insertion and tube feeds for now. Will need 1:1 monitoring to keep NGT in place -Lasix PRN as has been on consistent IVF hydration to prevent fluid overload -has not been able to consistently take her oral meds which is likely contributing to tachycardia and AMS -DVT ppx with Lovenox -fall precautions -re-orient as needed -Dispo: [facility]; had DPOA Danis Vargas; will need to have goals of care discussion with him to determine next steps -Code status: DNR/DNI -guarded prognosis Attestations Medical Necessity Statement*: Patient requires hospitalization for continued management of malnutrition requiring tube feeding. Time Spent in Patient Care: 16 - 35 minutes (>than 50% of time spent in counselling and/or direct pt care on unit). Coding Level of Care Code Acute Coordinating Producer for Chg Fwd Diagnoses Small bowel obstruction K56.609 Ventral incisional hernia K43.2 Influenza with respiratory manifestation J11.1
[2019-05-06] MEDS: enoxaparin 30 mg/0.3 mL Syringe SUBCUT (20:58)
[2019-05-06] MEDS: dextrose 5% + KCl 20 mEq 20 MEQ/1,000 ML BAG 75 MEQ IV (20:59)
[2019-05-06] MEDS: OXcarbazepine 300 mg Tablet PO (21:02)
[2019-05-06] MEDS: FUROsemide 10 mg/mL SDV 2mL 20 MG IVP (21:03)
[2019-05-06] MEDS: ipratropium-albuterol 3 mL Neb INHALATION (21:54)
[2019-05-07] VITALS (12 sets, daily range): BP systolic 96–112; BP diastolic 56–73; PULSE 101–127; RESP 18–28; TEMP 36.8–37.5; O2SAT 4–96
[2019-05-07] MEDS: metoprolol tartrate 1 mg/1 mL SDV 5 mL 5 MG IV ×3 (00:25→18:10)
[2019-05-07] MEDS: piperacillin-tazobactam 3.375 GM in sodium chloride 0.9% (plus) 50 ML IV ×3 (01:59→18:26)
[2019-05-07 06:08] LABS: Anion Gap 15.8 (5-19); Blood Urea Nitrogen 31 mg/dL (8-23); Calcium 7.6 mg/dL (8.5-10.5); Carbon Dioxide 20 mmol/L (22-29); Chloride 120 mmol/L (98-107); Glomerular Filtration Rate 18.5 mL/min (90-130); Glucose 175 mg/dL (65-115); Osmolality Calculated 317 mOsm/kg (285-295); Sodium 153 mmol/L (136-145)
[2019-05-07 06:32] LABS: Potassium 2.8 mmol/L (3.5-5.1)
[2019-05-07 07:40] LABS: Magnesium 1.5 mg/dL (1.7-2.3)
[2019-05-07] MEDS: LORazepam 2 mg/mL INJ 1 mL 1 MG IVP ×5 (08:56→23:44)
[2019-05-07] MEDS: morphine 4 mg/mL SDV 1 mL 2 MG IVP ×6 (08:57→23:44)
[2019-05-07] MEDS: nystatin powder 15 gm Btl 1 APPLIC TOPICAL ×2 (09:58→17:12)
[2019-05-07] MEDS: metroNIDAZOLE IV 500 MG/100 ML PREMIX 100 MG IV ×3 (11:29→23:08)
[2019-05-07] MEDS: levETIRAcetam 500 mg Tablet PO (11:30)
--- NOTE | 2019-05-07 12:47 | P.PN_ITS ---
Subjective Subjective: Interval history: Patient seen and examined, sitter at bedside, remains on tube feeds via NGT @ 10 mL/hr. Overall, patient is not doing well, continues to be lethargic, has required some Morphine for pain control, persistent tachycardia, low normal BP, continues to require supplemental oxygen, increased to 4 L. AM labs noted with slight improvement in hypernatremia, worse ivan hypokalemia, continued renal impairment. Called Danis Vargas, left message, need to discuss next steps in her care. Medications: Reviewed: Yes Medication Review Details: Active Medications Generic Name Dose Route Start Last Admin Trade Name Freq PRN Reason Stop Dose Admin Acetaminophen 650 mg 04/24/19 02:50 05/03/19 15:32 Tylenol PO 650 mg Q6H PRN Administration MILD PAIN Acetaminophen 650 mg 04/29/19 03:25 04/29/19 03:47 Tylenol MD 650 mg Q6H PRN Administration MILD PAIN Albuterol/Ipratrop ium 3 ml 04/23/19 17:54 05/06/19 21:54 Duoneb INHALATION 3 ml Q6H PRN Administration SHORTNESS OF MATTHIEU TH Bisacodyl 10 mg 04/23/19 17:39 Dulcolax PO DAILY PRN CONSTIPATION Chlorpromazine HCl 100 mg 04/25/19 21:00 05/07/19 11:29 Thorazine PO Not Given TID ANTONIO Clonazepam 0.5 mg 04/23/19 21:00 05/05/19 19:22 Klonopin PO Not Given TID ANTONIO Enoxaparin Sodium 30 mg 04/23/19 17:45 05/06/19 20:58 Lovenox SUBCUT 30 mg Q24H ANTONIO Administration Furosemide 20 mg 05/06/19 20:15 05/06/19 21:03 Lasix IVP 20 mg Q24H ANTONIO Administration Piperacillin Sod/T azobactam 50 mls @ 12.5 mls /hr 04/30/19 16:30 05/07/19 10:58 Sod 3.375 gm/ So dium Chloride IV 12.5 mls/hr Q8H ANTONIO Administration Protocol Metronidazole 500 mg in 100 mls @ 100 mls/hr 05/01/19 16:00 05/07/19 11:29 Flagyl Iv IV 100 mls/hr Q8H ANTONIO Administration Protocol Potassium Chloride /Dextrose 20 meq in 1,000 m ls @ 75 mls/hr 05/06/19 20:15 05/06/19 20:59 Dextrose 5% + Satnam l 20 Meq IV 75 mls/hr .[id number] ANTONIO Administration Magnesium Sulfate 2 gm in 50 mls @ 50 mls/hr 05/07/19 12:47 Magnesium Sulfat e Premix IV 05/07/19 13:46 ONCE ONE Levetiracetam 500 mg 04/23/19 18:00 05/07/19 11:30 Keppra PO 500 mg BID ANTONIO Administration Lorazepam 1 mg 05/03/19 15:24 05/07/19 08:56 Ativan IVP 1 mg Q4H PRN Administration ANXIETY Metoprolol Succina te 50 mg 04/25/19 18:00 05/07/19 11:37 Toprol Xl PO Not Given BID ANTONIO Metoprolol Tartrat e 5 mg 04/28/19 20:34 05/07/19 08:58 Metoprolol Tartr ate IV 5 mg Q4H PRN Administration HEART RATE-HIGH Morphine Sulfate 2 mg 05/06/19 20:06 05/07/19 08:57 Morphine IVP 2 mg Q4H PRN Administration SEVERE PAIN Non-Formulary Medi cation 100 mg 04/24/19 09:00 05/07/19 07:56 Amantadine Hcl PO Not Given DAILY [facility] OF [facility] Nystatin 1 applic 05/02/19 18:00 05/07/19 09:58 Nystatin Powder TOPICAL 1 applic BID [facility] OF [facility] Administration Oxcarbazepine 300 mg 04/23/19 21:00 05/07/19 11:29 Trileptal PO Not Given TID ON LICENSE OF [facility] Phenol 5 spray 04/28/19 20:35 Phenaseptic MUCOUS MEM Q2H PRN SORE THROAT Sodium Phosphate 118 ml 04/23/19 17:52 Fleet Enema MD DAILY PRN Constipation nitrofurantoin [From Macrobid] Allergy (Verified 04/27/19 07:57) ALGY-Rash oseltamivir [From Tamiflu] Allergy (Verified 04/27/19 07:57) ALGY-Hives Vitals/I&O/Wt Last Vital Signs Temp 98.5 F 05/07/19 11:43 Pulse 120 H 05/07/19 11:43 Resp 20 H 05/07/19 11:43 BP 96/64 05/07/19 11:43 Pulse Ox 94 05/07/19 11:43 05/06/19 05/07/19 05/07/19 22:59 06:59 14:59 Intake Total 150 / 380 918 / 1298 Output Total 300 / 625 710 / 1335 200 / 200 Balance -150 / -245 208 / -37 -200 / -200 Physical Exam Const: COMMON NORMALS: no apparent distress GENERAL APPEARANCE: lethargic, frail appearing and appears older than stated age; not comfortable ORIENTATION/CONSCIOUSNESS: Yes lethargic HENMT: COMMON NORMALS: normocephalic, head/scalp atraumatic and hearing grossly normal bilaterally HEAD & SCALP: normocephalic and atraumatic NOSE: other (NGT in place) Eye: COMMON NORMALS: PERRL, EOMs intact bilaterally and conjunctivae normal CONJUNCTIVA: Yes conjunctivae normal PUPIL: Yes PERRL Neck/C-Spine: COMMON NORMALS: full ROM GENERAL: Yes normal visual inspection and Yes trachea midline Resp: COMMON NORMALS: normal respiratory effort, no retractions and no use of accessory muscles EFFORT & INSPECTION: Yes able to speak in complete sentences, Yes symmetric chest movement and Yes tachypneic AUSCULTATION: crackles OTHER: -coarse breath sounds, on 4 L NC Cardio: COMMON NORMALS: regular rhythm, S1 normal heart sound, S2 normal heart sound and no murmurs RATE: tachycardic RHYTHM: regular rhythm HEART SOUNDS: S1 normal and S2 normal GI: COMMON NORMALS: soft to palpation and non-tender INSPECTION: Yes abdominal distension and Yes visible herniation (known ventral hernia, partially reducible) AUSCULTATION: Yes normoactive bowel sounds PALPATION: Yes soft and No tender : BLADDER/KIDNEY EXAM: Yes catheter in place Catheter type (Female): urethral Extremity: COMMON NORMALS: normal to inspection, full ROM and no clubbing, cyanosis or edema; negative for no pedal edema NARRATIVE EXTREMITY EXAM: -contracted LEs GENERAL: Yes edema (non-pitting edema around bilateral ankles) Neuro: COMMON NORMALS: moves all extremities, no focal motor deficits and no sensory deficits noted SENSORIUM/ORIENTATION: Yes lethargic OTHER: - baseline cognitive delay Psych: COMMON NORMALS: cooperative SPEECH: Yes other (speech quite high pitched and somewhat difficult to understand) MOOD & AFFECT: Yes anxious Skin: COMMON NORMALS: no rashes or lesions noted, no jaundice, no petechiae and no mottling GENERAL SKIN EXAM: no rashes or lesions noted OTHER: - inguinal intertrigo bilaterally, noted diffuse erythematous excoriation on bilateral gluteal area with discrete areas of superficial breakdown and erythema Urinary Catheter Management^: Lou: Cath Placed During This Visit: yes Urethral Indwelling: Yes Reason for Continuing Indwelling Catheter: Chronic Indwelling Urinary Catheter on Admission Urinary Catheter Date of Insertion: 04/23/19 Urinary Catheter Time of Insertion: 20:30 Data : 05/05/19 05:42 05/07/19 04:57 Micro: Microbiology 05/02/19 10:28 Blood Culture - Final Blood NO GROWTH AFTER 5 DAYS 05/02/19 10:31 Blood Culture - Final Blood NO GROWTH AFTER 5 DAYS A&P Assessment and plan (1) Small bowel obstruction: -Noted evidence of small bowel obstruction on initial imaging; now resolved -NG tube discontinued, last BM on 05/02, on dysphagia diet though has had minimal oral intake -Pain control and antiemetics as needed -Surgery consult by Dr. Goss appreciated; continue conservative management at this time -continue serial abdominal examinations; repeat KUB (05/01) shows resolution of SBO -repeat CXR (04/30) unchanged. Status: Resolved Code(s): K56.609 - Unspecified intestinal obstruction, unspecified as to partial versus complete obstruction (2) Ventral incisional hernia: -has known chronically incarcerated ventral hernia, partially reducible Status: Acute Code(s): K43.2 - Incisional hernia without obstruction or gangrene (3) Influenza with respiratory manifestation: -found to be influenza B positive; droplet isolation precautions -has allergy to tamiflu -continue to monitor respiratory status; supplemental oxygen as needed Status: Acute Code(s): J11.1 - Influenza due to unidentified influenza virus with other respiratory manifestations Additional A&P Information -Obesity: BMI-32 kg/m2 -Seizure disorder; continue Keppra -Anxiety; requiring Ativan PRN -hx of EPS, bipolar 1 disorder, depression; continue meds -known cognitive delay -Chronic normocytic anemia; baseline Hg around 11 -DAVID on CKD stage 3; baseline Cr around 1.3; continue to monitor renal function, gradually improving, avoid nephrotoxins, renally dose meds -hx of oropharyngeal dysphagia and with concern for possible aspiration overnight given N/V -Transaminitis, likely secondary to infection, improving, continue to trend LFTs -Leukopenia resolved; WBC wnl -Hypernatremia; on IVF -NSTEMI; likely type II given acute infection with associated sepsis -sepsis on admission as evidenced by lactic acidosis (now resolved), fever, tachycardia, tachypnea -intertrigo, excoriation of bilateral gluteal area; frequent repositioning (q2h), keep skin clean and dry, nystatin powder. With increased breakdown, suspect this is contributing to her fever, tachycardia -at least moderate protein calorie malnutrition, contributing to bilateral LE edema, has had poor oral intake and this will diminish capacity for recovery; hypoalbuminemia. Added Ensure to meals though has had poor intake. May need to consider alternative nutrition if continued poor oral intake. NGT is not my first choice as she kept pulling it out when used for decompression. PICC line ordered for this but placement unsuccessful. Will have to go with NGT insertion and tube feeds for now. Will need 1:1 monitoring to keep NGT in place -Lasix PRN as has been on consistent IVF hydration to prevent fluid overload -has not been able to consistently take her oral meds which is likely contributing to tachycardia and AMS -DVT ppx with Lovenox -fall precautions -re-orient as needed -Dispo: [facility]; had [facility] Danis Vargas (W: [phone], C: [phone]); will need to have goals of care discussion with him to determine next steps -Code status: DNR/DNI -guarded prognosis with continued decompensation Attestations Medical Necessity Statement*: Patient requires hospitalization for continued tube feeds, management of renal impairment, hypernatremia, hypokalemia; with continued decompensation. Time Spent in Patient Care: 16 - 35 minutes (>than 50% of time spent in counselling and/or direct pt care on unit) . Coding Level of Care Code Acute Hot Box Operator for Chg Fwd Diagnoses Small bowel obstruction K56.609 Ventral incisional hernia K43.2 Influenza with respiratory manifestation J11.1
[2019-05-07] MEDS: magnesium sulfate premix 2 GM/50 ML PIGGYBACK IV (13:46)
[2019-05-07] MEDS: dextrose 5% + KCl 20 mEq 20 MEQ/1,000 ML BAG 75 MEQ IV (13:56)
[2019-05-07] MEDS: enoxaparin 30 mg/0.3 mL Syringe SUBCUT (20:18)
[2019-05-07] MEDS: FUROsemide 10 mg/mL SDV 2mL 20 MG IVP (20:19)
[2019-05-08] VITALS (10 sets, daily range): BP systolic 76–97; BP diastolic 50–67; PULSE 96–126; RESP 19–36; TEMP 37.2–37.6; O2SAT 90–95
--- NOTE | 2019-05-08 04:08 | PHA.FALL ---
A Pharmacy Consult Was Conducted For Cecelia Gonzales Due To: Tomas Fall Scale Risk Level: High Fall Risk On 05/07/19 20:00 And A Medication Fall Risk Score Greater Than 10. The Recommendations Are As Follows: Metoprolol and Furosemide may cause orthostatic hypotension, dizziness, syncope, bradycardia, impaired cerebral perfusion Chlorpromazine can cause psychomotor impairment, sedation, orthostatic hypotension, confusion, dizziness Clonazepam or Ativan can cause psychomotor impairment, sedation, orthostatic hypotension, confusion, and dizziness Keppra and Trileptal may cause sedation, psychomotor impairment, and confusion Morphine may cause sedation or confusion Thank you, Sally Helton [facility]
[2019-05-08 05:49] LABS: Anion Gap 15.4 (5-19); Blood Urea Nitrogen 30 mg/dL (8-23); Calcium 7.4 mg/dL (8.5-10.5); Carbon Dioxide 20 mmol/L (22-29); Chloride 118 mmol/L (98-107); Glucose 153 mg/dL (65-115); Osmolality Calculated 310 mOsm/kg (285-295); Potassium 3.4 mmol/L (3.5-5.1); Sodium 150 mmol/L (136-145)
[2019-05-08] MEDS: metroNIDAZOLE IV 500 MG/100 ML PREMIX 100 MG IV (07:27)
[2019-05-08] MEDS: dextrose 5% + KCl 20 mEq 20 MEQ/1,000 ML BAG 75 MEQ IV (07:29)
[2019-05-08] MEDS: metoprolol succinate ER (24 HR) 50 mg Tablet PO (09:19)
[2019-05-08] MEDS: levETIRAcetam 500 mg Tablet PO (09:19)
[2019-05-08] MEDS: OXcarbazepine 300 mg Tablet PO (09:20)
[2019-05-08] MEDS: piperacillin-tazobactam 3.375 GM in sodium chloride 0.9% (plus) 50 ML IV (09:20)
[2019-05-08] MEDS: nystatin powder 15 gm Btl 1 APPLIC TOPICAL (09:21)
--- NOTE | 2019-05-08 11:58 | PM.PN ---
Subjective Subjective: Interval history: Patient seen and examined, continues to decline, unable to arouse even with painful stimulation this AM. Will discontinue tube feeds. Called and discussed goals of care with Danis Vargas, agreeable to transition to comfort measures. Will d/c sitter as well. Medications: Reviewed: Yes Medication Review Details: Active Medications Generic Name Dose Route Start Last Admin Trade Name Freq PRN Reason Stop Dose Admin Acetaminophen 650 mg 04/29/19 03:25 04/29/19 03:47 Tylenol [place] 650 mg Q6H PRN Administration MILD PAIN Albuterol/Ipratrop ium 3 ml 04/23/19 17:54 05/06/19 21:54 Duoneb INHALATION 3 ml Q6H PRN Administration SHORTNESS OF MATTHIEU TH Atropine Sulfate 4 drop 05/08/19 11:58 Isopto Atropine SUBLINGUAL Q2H PRN SECRETIONS Lorazepam 2 mg 05/08/19 11:58 Ativan IVP Q2H PRN ANXIETY Metoprolol Tartrat e 5 mg 04/28/19 20:34 05/07/19 18:10 Metoprolol Tartr ate IV 5 mg Q4H PRN Administration HEART RATE-HIGH Morphine Sulfate 2 mg 05/07/19 13:21 05/07/19 23:44 Morphine IVP 2 mg Q2H PRN Administration SEVERE PAIN nitrofurantoin [From Macrobid] Allergy (Verified 04/27/19 07:57) ALGY-Rash oseltamivir [From Tamiflu] Allergy (Verified 04/27/19 07:57) ALGY-Hives Vitals/I&O/Wt Last Vital Signs Temp 99.0 F 05/08/19 11:44 Pulse 105 H 05/08/19 11:44 Resp 30 H 05/08/19 11:44 BP 95/65 05/08/19 11:44 Pulse Ox 92 05/08/19 11:44 05/07/19 05/08/19 05/08/19 22:59 06:59 14:59 Intake Total 150 / 1320 352 / 1672 1250 / 1250 Output Total 450 / 650 Balance 150 / 1120 -98 / 1022 1250 / 1250 Physical Exam Const: COMMON NORMALS: no apparent distress GENERAL APPEARANCE: ill appearing, frail appearing and appears older than stated age; not comfortable OTHER: -unable to arouse even with painful stimulation HENMT: COMMON NORMALS: normocephalic and head/scalp atraumatic HEAD & SCALP: normocephalic and atraumatic NOSE: other (NGT in place) Eye: COMMON NORMALS: PERRL, EOMs intact bilaterally and conjunctivae normal CONJUNCTIVA: Yes conjunctivae normal PUPIL: Yes PERRL Neck/C-Spine: COMMON NORMALS: full ROM GENERAL: Yes normal visual inspection and Yes trachea midline Resp: COMMON NORMALS: normal respiratory effort, no retractions and no use of accessory muscles EFFORT & INSPECTION: Yes able to speak in complete sentences, Yes symmetric chest movement and Yes tachypneic AUSCULTATION: crackles OTHER: -coarse breath sounds, on 4 L NC Cardio: COMMON NORMALS: regular rhythm, S1 normal heart sound, S2 normal heart sound and no murmurs RATE: tachycardic RHYTHM: regular rhythm HEART SOUNDS: S1 normal and S2 normal GI: COMMON NORMALS: soft to palpation and non-tender INSPECTION: Yes abdominal distension and Yes visible herniation (known ventral hernia, partially reducible) AUSCULTATION: Yes normoactive bowel sounds PALPATION: Yes soft and No tender : BLADDER/KIDNEY EXAM: Yes catheter in place Catheter type (Female): urethral Extremity: COMMON NORMALS: normal to inspection, full ROM and no clubbing, cyanosis or edema; negative for no pedal edema NARRATIVE EXTREMITY EXAM: -contracted LEs GENERAL: Yes edema (non-pitting edema around bilateral ankles) Neuro: COMMON NORMALS: moves all extremities, no focal motor deficits and no sensory deficits noted OTHER: -baseline cognitive delay Psych: COMMON NORMALS: cooperative SPEECH: Yes other (speech quite high pitched and somewhat difficult to understand) MOOD & AFFECT: Yes anxious Skin: COMMON NORMALS: no rashes or lesions noted, no jaundice, no petechiae and no mottling GENERAL SKIN EXAM: no rashes or lesions noted OTHER: -inguinal intertrigo bilaterally, noted diffuse erythematous excoriation on bilateral gluteal area with discrete areas of superficial breakdown and erythema Urinary Catheter Management^: Lou: Cath Placed During This Visit: yes Urethral Indwelling: Yes Reason for Continuing Indwelling Catheter: Hospice/Comfort/Palliative Care Urinary Catheter Date of Insertion: 04/23/19 Urinary Catheter Time of Insertion: 20:30 Data : 05/05/19 05:42 05/08/19 04:58 Micro: Microbiology 05/02/19 10:28 Blood Culture - Final Blood NO GROWTH AFTER 5 DAYS 05/02/19 10:31 Blood Culture - Final Blood NO GROWTH AFTER 5 DAYS A&P Assessment and plan (1) Small bowel obstruction: -Noted evidence of small bowel obstruction on initial imaging; now resolved -NG tube discontinued, last BM on 05/02, on dysphagia diet though has had minimal oral intake -Pain control and antiemetics as needed -Surgery consult by Dr. Goss appreciated; continue conservative management at this time -continue serial abdominal examinations; repeat KUB (05/01) shows resolution of SBO -repeat CXR (04/30) unchanged. Status: Resolved Code(s): K56.609 - Unspecified intestinal obstruction, unspecified as to partial versus complete obstruction (2) Ventral incisional hernia: -has known chronically incarcerated ventral hernia, partially reducible Status: Acute Code(s): K43.2 - Incisional hernia without obstruction or gangrene (3) Influenza with respiratory manifestation: -found to be influenza B positive; droplet isolation precautions -has allergy to tamiflu -continue to monitor respiratory status; supplemental oxygen as needed Status: Acute Code(s): J11.1 - Influenza due to unidentified influenza virus with other respiratory manifestations Additional A&P Information -Obesity: BMI-32 kg/m2 -Seizure disorder; continue Keppra -Anxiety; requiring Ativan PRN -hx of EPS, bipolar 1 disorder, depression; continue meds -known cognitive delay -Chronic normocytic anemia; baseline Hg around 11 -DAVID on CKD stage 3; baseline Cr around 1.3; continue to monitor renal function, gradually improving, avoid nephrotoxins, renally dose meds -hx of oropharyngeal dysphagia and with concern for possible aspiration overnight given N/V -Transaminitis, likely secondary to infection, improving, continue to trend LFTs -Leukopenia resolved; WBC wnl -Hypernatremia; on IVF -NSTEMI; likely type II given acute infection with associated sepsis -sepsis on admission as evidenced by lactic acidosis (now resolved), fever, tachycardia, tachypnea -intertrigo, excoriation of bilateral gluteal area; frequent repositioning (q2h), keep skin clean and dry, nystatin powder. With increased breakdown, suspect this is contributing to her fever, tachycardia -at least moderate protein calorie malnutrition, contributing to bilateral LE edema, has had poor oral intake and this will diminish capacity for recovery; hypoalbuminemia. Added Ensure to meals though has had poor intake. May need to consider alternative nutrition if continued poor oral intake. NGT is not my first choice as she kept pulling it out when used for decompression. PICC line ordered for this but placement unsuccessful. Will have to go with NGT insertion and tube feeds for now. Will need 1:1 monitoring to keep NGT in place -Lasix PRN as has been on consistent IVF hydration to prevent fluid overload -has not been able to consistently take her oral meds which is likely contributing to tachycardia and AMS -DVT ppx with Lovenox -fall precautions -re-orient as needed -Dispo: [facility]; had DPOA Danis Vargas (W: [phone], C: [phone]); had goals of care discussion with him and agreeable to transition to comfort measures -Code status: DNR/DNI -guarded prognosis with continued decompensation Attestations Medical Necessity Statement*: Patient requires hospitalization for continued care, transitioned to comfort measures due to continued decompensation. Time Spent in Patient Care: 16 - 35 minutes (>than 50% of time spent in counselling and/or direct pt care on unit). Coding Level of Care Code Acute Wound Care Coordinator for Melo Flores Diagnoses Small bowel obstruction K56.609 Ventral incisional hernia K43.2 Influenza with respiratory manifestation J11.1
--- NOTE | 2019-05-08 13:09 | PC.SOCIAL ---
IMM Updated Provided pt a copy of Pg 2 IMM & left on their bedside table. Signed, dated, & timed copy in chart. Will update Danis Saunders when available.
[2019-05-08] MEDS: morphine 4 mg/mL SDV 1 mL 2 MG IVP ×3 (14:38→21:05)
[2019-05-09] VITALS: BP 91/52; PULSE 128; RESP 29; TEMP 37.4; O2SAT 93
[2019-05-09 04:00] VITALS: BP 104/66; PULSE 115; RESP 18; TEMP 37.3; O2SAT 95
[2019-05-09 08:00] VITALS: BP 101/69
[2019-05-09 08:08] VITALS: PULSE 118; RESP 22; O2SAT 94
[2019-05-09 12:14] VITALS: RESP 20
[2019-05-09] MEDS: morphine 4 mg/mL SDV 1 mL 2 MG IVP (12:14)
--- NOTE | 2019-05-09 12:34 | P.DS_ITS ---
Discharge Providers Date of Admission: 04/23/19 13:32 Date of Discharge: May 09, 2019 Attending Provider at Admission: Guillermo Reza MD Attending Provider at Discharge: Vesna Cui MD Primary Care Provider: Sai Hayden DO Diagnoses at Discharge Discharge Diagnosis (1) Small bowel obstruction: Status: Resolved Problem details: -Noted evidence of small bowel obstruction on initial imaging; now resolved -NG tube discontinued, last BM on 05/02, on dysphagia diet though has had minimal oral intake -Pain control and antiemetics as needed -Surgery consult by Dr. Goss appreciated; continue conservative management at this time -continue serial abdominal examinations; repeat KUB (05/01) shows resolution of SBO -repeat CXR (04/30) unchanged. (2) Ventral incisional hernia: Status: Acute Problem details: -has known chronically incarcerated ventral hernia, partially reducible (3) Influenza with respiratory manifestation: Status: Acute Problem details: -found to be influenza B positive; droplet isolation precautions -has allergy to tamiflu -continue to monitor respiratory status; supplemental oxygen as needed Other Information Additional DC diagnoses/information: -Obesity: BMI-32 kg/m2 -Seizure disorder; continue Keppra -Anxiety; requiring Ativan PRN -hx of EPS, bipolar 1 disorder, depression; continue meds -known cognitive delay -Chronic normocytic anemia; baseline Hg around 11 -DAVID on CKD stage 3; baseline Cr around 1.3; continue to monitor renal function, gradually improving, avoid nephrotoxins, renally dose meds -hx of oropharyngeal dysphagia and with concern for possible aspiration overnight given N/V -Transaminitis, likely secondary to infection, improving, continue to trend LFTs -Leukopenia resolved; WBC wnl -Hypernatremia; off IVF -NSTEMI; likely type II given acute infection with associated sepsis -sepsis on admission as evidenced by lactic acidosis (now resolved), fever, tachycardia, tachypnea -intertrigo, excoriation of bilateral gluteal area; frequent repositioning (q2h), keep skin clean and dry, nystatin powder. With increased breakdown, s uspect this is contributing to her fever, tachycardia -at least moderate protein calorie malnutrition, contributing to bilateral LE edema, has had poor oral intake and this will diminish capacity for recovery; hypoalbuminemia. Added Ensure to meals though has had poor intake. May need to consider alternative nutrition if continued poor oral intake. NGT is not my first choice as she kept pulling it out when used for decompression. PICC line ordered for this but placement unsuccessful. NGT re-inserted and tube feeds started but patient continued to clinically decline so discontinued Reason for Visit Reason for Visit: Reason For Visit: RESPIRATORY DISTRESS / ASPIRATED H20 YESTERDAY Hospital Course Hospital Course: Patient was admitted to the medical surgical floor and started on broad-spectrum IV antibiotics for treatment of pneumonia with associated influenza A. Patient has a known allergy to Tamiflu so was not treated specifically with this medication. Was placed on droplet isolation precautions. There was concern for possible aspiration which appears to be a chronic issue. She did have some ongoing diarrhea that required rectal tube placement. This improved and rectal tube was subsequently removed. Unfortunat indigo patient developed abdominal pain and has a known chronic ventral hernia with increased tenderness on examination necessitating imaging. This was consistent with small bowel obstruction and surgery was consulted. Patient had an NG tube placed for decompression and bowel rest was started. Gradually she improved without surgical intervention but following the resolution of the small bowel obstruction, she subsequently decompensated with noted hypotension, tachycardia, tachypnea, fluid overload and minimal oral intake. Attempts were made to provide alternative nutrition including unsuccessful PICC line placement so patient had NG tube placed again and tube feeds were started. She was unable to tolerate this as evidenced by continued hemodynamic instability and overall decline. With NG tube placement she had one-on-one monitoring as she had pulled out several NG tube during her episode with small bowel obstruction. Despite continued IV antibiotic treatment she continued to have respiratory distress. Goals of care were discussed with patient's decision maker who is Danis Vargas and he agreed to transition the patient to comfort measures when her overall poor prognosis. Patient had already been a DNR/DNI. She will be discharged to [facility] with continued comfort measures. She is currently unarousable even with painful stimulation, continues to require supplemental oxygen support, is tachycardic and tachypneic. She has a chronic indwelling Lou catheter in place which she will be discharged with for continued comfort. Discharge Summary: -Patient to follow up with primary care provider within 1 week or per SNF Physical Exam Const: COMMON NORMALS: no apparent distress GENERAL APPEARANCE: ill appearing, frail appearing and appears older than stated age; not comfortable OTHER: -unable to arouse even with painful stimulation HENMT: COMMON NORMALS: normocephalic and head/scalp atraumatic HEAD & SCALP: normocephalic and atraumatic NOSE: other (NGT in place) Eye: COMMON NORMALS: PERRL, EOMs intact bilaterally and conjunctivae normal CONJUNCTIVA: Yes conjunctivae normal PUPIL: Yes PERRL Neck/C-Spine: COMMON NORMALS: full ROM GENERAL: Yes normal visual inspection and Yes trachea midline Resp: COMMON NORMALS: normal respiratory effort, no retractions and no use of accessory muscles EFFORT & INSPECTION: Yes able to speak in complete sentences, Yes symmetric chest movement and Yes tachypneic AUSCULTATION: crackles OTHER: -coarse breath sounds, on 2 L NC Cardio: COMMON NORMALS: regular rhythm, S1 normal heart sound, S2 normal heart sound and no murmurs RATE: tachycardic RHYTHM: regular rhythm HEART SOUNDS: S1 normal and S2 normal GI: COMMON NORMALS: soft to palpation INSPECTION: Yes abdominal distension and Yes visible herniation (known ventral hernia, partially reducible) AUSCULTATION: Yes normoactive bowel sounds PALPATION: Yes soft : BLADDER/KIDNEY EXAM: Yes catheter in place Catheter type (Female): urethral Extremity: COMMON NORMALS: normal to inspection, full ROM and no clubbing, cyanosis or edema; negative for no pedal edema NARRATIVE EXTREMITY EXAM: -contracted LEs GENERAL: Yes edema (non-pitting edema around bilateral ankles) Neuro: OTHER: -baseline cognitive delay -unable to arouse even with painful stimulation Psych: OTHER: -unable to arouse even with painful stimulation Skin: COMMON NORMALS: no rashes or lesions noted, no jaundice, no petechiae and no mottling GENERAL SKIN EXAM: no rashes or lesions noted OTHER: - inguinal intertrigo bilaterally, noted diffuse erythematous excoriation on bilateral gluteal area with discrete areas of superficial breakdown and erythema Urinary Catheter Management^: Lou: Cath Placed During This Visit: yes Urethral Indwelling: Yes Reason for Continuing Indwelling Catheter: Hospice/Comfort/Palliative Care Urinary Catheter Date of Insertion: 04/23/19 Urinary Catheter Time of Insertion: 20:30 Discharge Data Data Completed and Pending: Completed Studies During Hospitalization Category Date Time Status CT abdomen pelvis wo con 19462 Rout ine Cat Scan 04/26/19 16:[address] abdomen pelvis wo con [id number] Stat Cat Scan 04/23/19 11:36 Completed CXRP [XR chest 1V portable [id number]] S tat Exams 04/28/19 00:52 Completed XR KUB portable 7 [id number] Routine Exams 04/28/19 07:00 Completed XR KUB portable 7 [id number] Routine Exams 05/02/19 09:39 Completed XR chest 1V yoli ble [id number] Routine Exams 05/06/19 00:06 Completed XR chest 1V yoli ble [id number] Stat Exams 04/23/19 11:25 Completed XR chest 1V yoli ble [id number] Stat Exams 04/28/19 06:57 Completed XR chest 1V yoli ble [id number] Stat Exams 04/28/19 21:20 Completed XR chest 1V yoli ble [id number] Stat Exams 04/29/19 16:29 Completed XR chest 1V yoli ble [id number] Stat Exams 05/05/19 14:51 Completed XR chest 1V yoli ble [id number] Urgent Exams 05/01/19 15:27 Completed CV echo complete* [id number] Routine Ultrasound 04/24/19 10:00 Completed Pending at discharge Category Date Time Status PTH Related Pepti de (Protein) Routi ne Lab 05/04/19 06:36 Received Vitals: Last Vital Signs Temp 99.2 F 05/09/19 04:00 Pulse 118 H 05/09/19 08:08 Resp 20 H 05/09/19 12:14 BP 101/69 05/09/19 08:00 Pulse Ox 94 05/09/19 08:08 Discharge Plan Discharge Patient Disposition: [facility] Condition: Fair Prescriptions: New ipratropium-albuterol 0.5 mg-3 mg(2.5 mg base)/3 mL Solution For Nebulization 3 ml inhalation Q6H PRN (Reason: Shortness Of Breath) Qty: 30 RF: 0 Isopto Atropine 1 % Drops 4 drp sublingual Q2H PRN (Reason: Secretions) Qty: 5 RF: 0 morphine 20 mg/5 mL (4 mg/mL) solution 10 mg BUCCAL Q3H PRN (Reason: pain or air hunger) Qty: 100 RF: 0 Lorazepam Intensol 2 mg/mL concentrate 2 mg SUBLINGUAL Q6H PRN (Reason: anxiety) Qty: 30 RF: 0 Discontinued amantadine HCl 100 mg Tablet 100 mg PO DAILY RF: 0 furosemide 40 mg Tablet 40 mg PO DAILY RF: 0 Tylenol 325 mg Tablet 650 mg PO Q8H PRN (Reason: Pain) RF: 0 levetiracetam 500 mg Tablet 500 mg PO BID RF: 0 chlorpromazine 100 mg Tablet 100 mg PO TID RF: 0 Klonopin 0.5 mg Tablet 0.5 mg PO TID RF: 0 oxcarbazepine 300 mg Tablet 300 mg PO TID RF: 0 Milk of Magnesia 400 mg/5 mL Suspension 400 mg PO DAILY PRN (Reason: Constipation) RF: 0 bisacodyl 10 mg Suppository 10 mg AL DAILY PRN (Reason: Constipation) RF: 0 Enema 19-7 gram/118 mL Enema 118 ml AL DAILY PRN (Reason: Constipation) RF: 0 metoprolol succinate 25 mg Tablet Extended Release 24 Hr 25 mg PO BID RF: 0 Anti-Dandruff 1 % Shampoo See Rx Instructions .ROUTE .COMPLEX RF: 0 Topamax 50 mg Tablet 50 mg PO TID RF: 0 Nuedexta 20-10 mg Capsule 1 cap PO Q12H RF: 0 potassium chloride 20 mEq Tablet Extended Release 20 meq PO BID RF: 0 Discharge Orders: Discharge Order (Routine); Ordered 05/09/19 Ordered By: Vesna Cui Referrals: Sai Hayden DO [Primary Care Provider] - 4-7 days (Post hospital discharge follow up. On comfort measures) Discharge Diet: As Directed Discharge Activity: Bedrest Activity Restrictions/Additional Instructions: -Please continue supplemental oxygen support for comfort -Patient has Lou catheter in place, should be left in place for comfort measures Discharge Attestations Time Spent in Discharge Care*: greater than 30 min Specific Discharge Activities: Specific discharge activities: educating patient, educating and/or supporting family/caregiver, discussing with pcp/other providers, discussing with dependency case manager/social workers/dc planners, documenting/other paperwork and evaluating patient/reviewing data Status at Discharge: Cognitive status at discharge: severely impaired cognition , Functional status at discharge: bed bound Overall status at discharge: other (patient on comfort measures) Quality Metrics Clinical Quality Measures During this hospital stay, did patient experience: None Coding Level of Care Code Acute [place] Driver for [facility] Fwd Diagnoses Small bowel obstruction K56.609 Ventral incisional hernia K43.2 Influenza with respiratory manifestation J11.1
[2019-05-09 12:57] VITALS: RESP 20
[2019-05-09 15:29] LABS: Influenza A by IFA Negative (Negative); Influenza B by IFA Negative (Negative)
== END 2019-05-09 14:59 | disposition skilled nursing facility (03) | DRG 871 ==
LOC: ER 13:47 → MEDSURG 16:05
PROVIDERS: Hospitalist; Admitting Provider Internal Medicine; Emergency Provider Family Medicine; PCP Internal Medicine; Visit Provider Family Medicine
DX: A41.9 Sepsis, unspecified organism (principal); I21.4 Non-ST elevation (NSTEMI) myocardial infarction; J96.01 Acute respiratory failure with hypoxia; R65.21 Severe sepsis with septic shock; K56.609 Unspecified intestinal obstruction, unspecified as to partial versus complete obstruction; N17.9 Acute kidney failure, unspecified; E87.0 Hyperosmolality and hypernatremia; F33.9 Major depressive disorder, recurrent, unspecified; D61.818 Other pancytopenia; E44.0 Moderate protein-calorie malnutrition; J11.1 Influenza due to unidentified influenza virus with other respiratory manifestations; K43.2 Incisional hernia without obstruction or gangrene; R56.9 Unspecified convulsions; N18.3 Chronic kidney disease, stage 3 (moderate); F41.9 Anxiety disorder, unspecified; R73.9 Hyperglycemia, unspecified; F79 Unspecified intellectual disabilities; R19.7 Diarrhea, unspecified; R13.12 Dysphagia, oropharyngeal phase; D64.9 Anemia, unspecified; Z66 Do not resuscitate; D72.819 Decreased white blood cell count, unspecified; E87.6 Hypokalemia; E87.70 Fluid overload, unspecified; E88.09 Other disorders of plasma-protein metabolism, not elsewhere classified; N28.9 Disorder of kidney and ureter, unspecified; L30.4 Erythema intertrigo; Z68.32 Body mass index [BMI] 32.0-32.9, adult; Z79.52 Long term (current) use of systemic steroids; Z79.811 Long term (current) use of aromatase inhibitors
CPT/HCPCS: 12345; 36415; 36569; 36600; 51702; 71045; 74018; 74176; 80048; 80053; 80202; 81001; 82140; 82274; 82310; 82542; 82803; 82805; 83036; 83605; 83735; 83970; 84100; 84484; 85007; 85025; 87040; 87077; 87086; 87186; 87205; 87493; 87505; 87804; 92523; 92524; 92526; 92610; 93005; 93306; 94640; 94660; 94799; 96372; 96375; 97162; 97530; 99283; J1650; J1940; J1956; J2001; J2060; J2270; J2543; J3370; J3475; J3480; J3490; J7030; J7040; J7050; Q0161; S0030